=== PATIENT | female | born 1935 | race Caucasian/White ===

== ENCOUNTER 2016-06-21 08:07 | Day surgery (SDC) | payer MEDICARE ==
[2016-06-20 10:12] VITALS: BMI 25.7
[~2016-06-21 08:07] MED LIST: LACTATED RINGERS 1,000 ML IV SCH; LIDOCAINE 1% 20 ML VIAL (10MG/ML) FOR IV START INTRADERMA PRN
[2016-06-21 08:57] VITALS: TEMP 98.3
[2016-06-21] MEDS ORDERED: LACTATED RINGERS 1,000 ML IV ONE (08:57)
[2016-06-21] MEDS ORDERED: GLYCOPYRROLATE 0.2 MG/ML 2 ML VIAL ONE (09:31)
[2016-06-21] MEDS ORDERED: PROPOFOL 10 MG/ML 20 ML VIAL IV ONE (09:31)
[2016-06-21] MEDS ORDERED: LIDOCAINE 1% INJ 10MG/ML (20 ML MDV) ONE (09:31)
--- NOTE | 2016-06-21 09:53 | P.PCN ---
Date of Procedure: 06/21/16 Procedure(s) Performed: BRIEF HISTORY: Patient is a 81-year-old, pleasant, white female, scheduled for an upper endoscopy as a part of evaluation of persistent epigastric pain for the last few months duration. The pain is worse with eating and has occasional nausea vomiting. She has been on Prilosec 20 mg daily for 3 weeks with no help. She since can for an upper endoscopy to evaluate. PROCEDURE PERFORMED: Esophagogastroduodenoscopy with biopsy PREOPERATIVE DIAGNOSIS: Epigastric pain for the last 2 months duration. IV sedation per anesthesia. PROCEDURE: After informed consent was obtained, the patient was brought into the endoscopy unit. IV sedation was administered by Anesthesia under continuous monitoring. Initially the Olympus GIF-140 video endoscope was inserted into the mouth. Esophagus intubated without any difficulty. It was gradually advanced into the stomach and duodenum and carefully examined. The bulb and the second part of the duodenum appeared normal. The scope at this time was withdrawn to the stomach, adequately insufflated with air, and upon careful examination, mucosa of the antrum, had mild gastritis and biopsies were done from this area. The body, cardia and the fundus appeared normal. The scope was then withdrawn into the esophagus. Small hiatal hernia noted. The GE junction was located at 36 cm from the incisors. The esophagus appeared normal. There were no erosions or ulcerations seen and the patient tolerated the procedure well. IMPRESSION: 1. Small l hiatal hernia but no evidence of esophagitis or Thurman's esophagus. 2. Mild antral gastritis . RECOMMENDATIONS: The findings of this examination were discussed with the patient as well as her family. She was advised to follow with the biopsy results. The meantime she'll continue with Prilosec 20 mg daily and follow antireflux measures..
[2016-06-21 10:01] VITALS: BP 112/78; PULSE 90; RESP 16
== END 2016-06-21 10:44 | disposition home or self-care (01) ==
LOC: ORWHC2ENDO 08:07
PROVIDERS: ATTEND Internal Medicine Gastroenterology
DX: K29.50 Unspecified chronic gastritis without bleeding (principal); K44.9 Diaphragmatic hernia without obstruction or gangrene; I10 Essential (primary) hypertension; E07.9 Disorder of thyroid, unspecified; M79.7 Fibromyalgia; G62.9 Polyneuropathy, unspecified; Z79.891 Long term (current) use of opiate analgesic; Z79.899 Other long term (current) drug therapy; Z87.891 Personal history of nicotine dependence
CPT/HCPCS: 88305; 88342; 43239; J2001; J2704

== ENCOUNTER → 2018-04-03 | Outpatient (CLI) | payer MEDICARE ==
--- NOTE | 2018-04-03 15:29 | US ---
EXAMINATION TYPE: US venous doppler duplex LE LT DATE OF EXAM: 04/03/2018 3:14 PM COMPARISON: NONE CLINICAL HISTORY: M79.605 Pain In Limb. Intermittent left leg pain x 2 weeks SIDE PERFORMED: Left TECHNIQUE: The lower extremity deep venous system is examined utilizing real time linear array sonog elvis with graded compression, doppler sonography and color-flow sonography. VESSELS IMAGED: External Iliac Vein (EIV) Common Femoral Vein Deep Femoral Vein Greater Saphenous Vein * Femoral Vein Popliteal Vein Small Saphenous Vein * Proximal Calf Veins (* superficial vessels) Left Leg: Appears negative for DVT IMPRESSION: 1. Left lower extremity ultrasound negative for deep venous thrombosis.
== END ==
LOC: RADUSWWP 14:50
PROVIDERS: ATTEND Nurse Practitioner Family
DX: M79.605 Pain in left leg (principal)

== ENCOUNTER → 2018-04-29 | Outpatient (CLI) | payer MEDICARE ==
--- NOTE | 2018-04-30 10:24 | CT ---
EXAMINATION TYPE: CT knee RT wo con DATE OF EXAM: 04/30/2018 COMPARISON: Radiographs 05/05/2015 HISTORY: 83-year-old female right knee pain, right total knee replacement 2 years ago TECHNIQUE: Contiguous axial scanning of the right knee without IV contrast. Coronal and sagittal yazmin nstructions performed. 3-D reconstructions generated on a dedicated independent workstation. CT DLP: 248 mGycm Automated exposure control for dose reduction was used. FINDINGS: Extensive metal hardware artifact relating to the patient's right total knee arthroplasty. Review of coronal and sagittal reconstruction suggests solid contact at the metal bony and vertebral interface. No significant periprosthetic lucency. No obvious fracture seen. Assessment limited for heaton btle nondisplaced fracture due to the extensive artifacts. Extensor mechanism appears to be intact though there is a 5 x 2 mm osseous density along the proximal patellar tendon. There is a 6 x 3 mm loose body in the infrapatellar joint space. Preserved height of the polyethylene spacers. No sizable joint effusion seen. There are some prominent contact of the back surface of the distal quadriceps tendon with the anterio r aspect of the femoral component, for example, refer to coronal image 15 and axial image 21. This ma y be expected postsurgical appearance. No sizable Gates's cyst seen. IMPRESSION: 1. EXTENSIVE METAL HARDWARE ARTIFACT. NO EVIDENT PROSTHETIC LOOSENING OR PERIPROSTHETIC FRACTURE. 2. SOME FRAGMENTATION ALONG THE LOWER POLE OF THE PATELLA MEASURING 5 X 2 MM, PROBABLY CHRONIC POSTSU RGICAL SEQUELA OR A FRAGMENTED SPUR. CORRELATE WITH APPEARANCE ON OUTSIDE RADIOGRAPHS THE PRIOR RA DIOGRAPH IN THIS SYSTEM IS FROM 04/25/2015. 3. ALSO, 6 X 3 MM LOOSE BODY IN THE INFRAPATELLAR JOINT SPACE. 4. SOME PROMINENT CONTACT OF THE BACK SURFACE OF THE DISTAL QUADRICEPS TENDON WITH THE ANTERIOR ASPEC T OF THE FEMORAL COMPONENT WHICH MAY BE EXPECTED POSTSURGICAL APPEARANCE. CLINICALLY CORRELATE.
== END | disposition home or self-care (01) ==
LOC: RADCTMAIN 15:21
PROVIDERS: ATTEND Family Medicine
DX: M23.41 Loose body in knee, right knee (principal); Z96.651 Presence of right artificial knee joint

== ENCOUNTER → 2018-05-26 | Outpatient (CLI) | payer MEDICARE ==
[2018-05-26 11:51] VITALS: BP 143/91; PULSE 95; RESP 16
--- NOTE | 2018-05-26 12:20 | P.PAINCN ---
History of Present Illness - Reason for Consult Consult date: 05/26/18 - History of Present Illness This is a 83 years old female with a chronic history of right knee pain, patient had right total knee replacement done 2 years ago, patient reported that after the surgery she continued to have severe right knee pain, the pain in the right knee is localized, is not radiated to the right leg or to the right ankle, she describes her pain as aching and numbness, she is able to ambulate using a cane, she denies any fever or night sweats she denies any discharge from the right knee, she denies any swelling in the right knee, patient seen the orthopedic surgeon Dr. Abdi and he told her that all the hardware is intact , patient had computed tomography scan of the right knee done recently , and it did not show any abnormalities in the hardware. Past Medical History Past Medical History: Asthma, Fibromyalgia, Hypertension, Osteoarthritis (OA), Thyroid Disorder Additional Past Medical History / Comment(s): Neuropathy History of Any Multi-Drug Resistant Organisms: None Reported Past Surgical History: Appendectomy, Joint Replacement Additional Past Surgical History / Comment(s): RIGHT KNEE Past Anesthesia/Blood Transfusion Reactions: No Reported Reaction Past Psychological History: Depression Smoking Status: Former smoker Past Alcohol Use History: None Reported Additional Past Alcohol Use History / Comment(s): states "smoked many years ago" Past Drug Use History: None Reported - Past Family History Father Family Medical History: Cancer Medications and Allergies Home Medications Medication Instructions Recorded Confirmed Type Levothyroxine Sodium [Synthroid] 50 mcg PO DAILY 05/13/14 05/26/18 History Gabapentin [Neurontin] 400 mg PO BID 11/21/15 05/26/18 History Lisinopril 20 mg PO DAILY 11/21/15 05/26/18 History Melatonin 3 mg PO HS PRN #0 tablet 11/23/15 05/26/18 Rx Zolpidem [Ambien] 5 mg PO HS PRN 11/29/15 05/26/18 History HYDROcodone/APAP 7.5-325MG [[place] 1 tab PO BID 06/20/16 05/26/18 History 7.5-325] Metoprolol Tartrate 1 tab PO DAILY 05/26/18 05/26/18 History Allergies Allergy/AdvReac Type Severity Reaction Status Date / Time No Known Allergies Allergy Verified 05/26/18 11:43 Physical Exam Vitals: Vital Signs Pulse Resp BP Pulse Ox 05/26/18 11:46 95 16 143/91 98 Intake and Output 05/25/18 05/26/18 05/26/18 22:59 06:59 14:59 Other: Weight 53.977 kg Social history : not smoker , NO ETOH , NO Illegal drugs use . Review of Systems : - Constitutional : no chills , no fever , no night sweats , - Ears : no ear discharge , no change in hearing -Nose, Mouth ,Throat ; no bleeding gums, no sore throat , no epistaxis , -Cardiovascular : Denies chest pain, , no orthopnea , no palpitation -Respiratory : Denies cough , no dyspnea , no hemoptysis -Gastrointestinal :, no change in bowel habits , no coffee- ground emesis . -Genitourinary : No hematuria , no discharge , no incontinence, -Musculoskeletal : No gait dysfunction , report low back pain , - Neurological : no ataxia , no tremor , no sezure , -Psychatric , no suicidal ideation no hallucination - Endocrine : no cold intolerence , no polyuria , no polydypsia , -Hematologic : no easy bleeding , no easy brusing , -Allergic / immunology : no angioedema , no wheezing ,no allergic rhinitis -Integumentary : no brttle nails , no change hair / nails , no foot/leg ulcers . Physical Examinations : -Constitutional : Cooperative , not in acute distress . -HEENT : nech ; supple , no Lymphadenopathy , no Thyromegaly , :eyes , no icterus, no photophobia . ENT : , normal oropharynx , no Thrush - Respiratory : Chest clear to auscultations Bilaterally , no wheezing . - Cardiovascular : regular rate and rhythem , S1 , S2 , no S3 , no S4. - Gastrointestinal: abdomen soft no tenderness , no organomegally . - Genitourinary : Defferred . -Integumentary : No cellulitis , no ulcers , normal skin turgor , no cyanotic . - neurologic : Cranial nerve II to XII intact , no focal neurological deffecit -psychatric : alert , oriented X 3 , appropriate affect , intact judgment and insight . -Lymphatic : no Lymphadenopathy. - musculoskeltal: Ambulates using cane Positive allodynia in the medial aspect of the right knee, positive dysesthesia at the lateral aspect of the right knee There is No Discharge , no swelling , no erythema Flexion, extension of the right knee. 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 Patient also could benefit from changing the Neurontin dose to 300 mg every 8 hours ( currently 400 mg twice a day ) Time with Patient: Greater than 30 PQRS Measure Charge Sheet Measure #130: Documentation of Current Meds in Medical Chart: Patient's medications documented in chart Measure #226: Tobacco Use: Screen & Cessation Intervention: Pt not a tobacco user Measure #111: Pneumonia Vaccination: Pneumococcal vaccine administered or previously received Measure #47: Advance Care Plan: Advance care planning discussed & documented, pt chose/unable to give Measure #412: Opioid Treatment Agreement: No documentation of signed opioid treatment agreement Measure #408: Opioid Therapy Follow-up Evaluation: Patient had NO f/u eval minimum every 3 months during opioid therapy Measure #317: Preventitive Care & Scrn High Bld Press & F/U: Pre-hypertensive or hypertensive BP documented, pt will f/u with PCP Measure #128: Body Mass Index (BMI) Screening & Follow-up: BMI documented within normal parameters Measure #131: Pain Assessment & Follow-up: Pain positive & plan documented, Follow-up scheduled Measure #431: Unhealthy Alcohol Use Preventative Care & Scrn: Patient not identified as an unhealthy alcohol user PQRS Narrative: Smoking Status Former smoker Do You Want the Pneumonia No Vaccine AT THIS TIME? Blood Pressure 143/91 Pain Intensity [Right Knee] 10 Scale Used Numeric (1 - 10) Hx Alcohol Use (MH) Yes Home Medications: Ambulatory Orders Levothyroxine Sodium [Synthroid] 50 mcg PO DAILY 05/13/14 Gabapentin [Neurontin] 400 mg PO BID 11/21/15 Lisinopril 20 mg PO DAILY 11/21/15 Melatonin 3 mg PO HS PRN #0 tablet 11/23/15 Zolpidem [Ambien] 5 mg PO HS PRN 11/29/15 HYDROcodone/APAP 7.5-325MG [[place] 7.5-325] 1 tab PO BID 06/20/16 Metoprolol Tartrate 1 tab PO DAILY 05/26/18
== END ==
LOC: PNWHC3 11:31
PROVIDERS: ATTEND Specialist
DX: M25.561 Pain in right knee (principal); G58.8 Other specified mononeuropathies; I10 Essential (primary) hypertension; J45.909 Unspecified asthma, uncomplicated; F32.9 Major depressive disorder, single episode, unspecified; Z96.651 Presence of right artificial knee joint; Z79.899 Other long term (current) drug therapy; Z79.891 Long term (current) use of opiate analgesic; Z87.891 Personal history of nicotine dependence
CPT/HCPCS: 99211

== ENCOUNTER 2019-08-07 12:19 | Emergency (ER) | payer MEDICARE ==
[2019-08-07 12:28] VITALS: TEMP 98.1
--- NOTE | 2019-08-07 12:41 | ED ---
General Adult HPI - General Chief complaint: Weakness Stated complaint: weakness Time Seen by Provider: 08/07/19 12:20 Source: patient, donor services manager, RN notes reviewed, old records reviewed Mode of arrival: EMS Limitations: no limitations - History of Present Illness Initial comments: This is an 84-year-old female who presents emergency Department with generalized weakness. Patient also states she has some dysuria. Patient states on Friday she took some sleeping medication and then fell because she didn't get the bed quick enough. Patient states she did have some left lateral ankle pain at that time. Patient has been able to ambulate on it but it is more difficult. Patient denies any chest pain difficulty breathing shortness of breath per p atient denies any abdominal pain. Patient denies any nausea vomiting. Patient any diarrhea. Patient denies any headache patient denies any numbness or weakness. Patient denies any lightheadedness or dizziness. Patient states when she fell she did not hurt anything else but her ankle she denies any head trauma or neck pain. - Related Data Home Medications Medication Instructions Recorded Confirmed Levothyroxine Sodium [Synthroid] 50 mcg PO DAILY 05/13/14 08/07/19 Gabapentin [Neurontin] 400 mg PO TID 11/21/15 08/07/19 Lisinopril 20 mg PO DAILY 11/21/15 08/07/19 Zolpidem [Ambien] 5 mg PO HS PRN 11/29/15 08/07/19 HYDROcodone/APAP 7.5-325MG [[place] 1 tab PO BID 06/20/16 08/07/19 7.5-325] Metoprolol Succinate [Toprol XL] 25 mg PO DAILY 08/07/19 08/07/19 Omeprazole 20 mg PO DAILY 08/07/19 08/07/19 traZODone HCL [Desyrel] 50 mg PO HS PRN 08/07/19 08/07/19 Previous Rx's Medication Instructions Recorded Nitrofurantoin Monohyd/M-Cryst 100 mg PO Q12HR #14 cap 08/07/19 [Macrobid] Allergies Allergy/AdvReac Type Severity Reaction Status Date / Time No Known Allergies Allergy Verified 08/07/19 13:55 Review of Systems ROS Statement: Those systems with pertinent positive or pertinent negative responses have been documented in the HPI. ROS Other: All systems not noted in ROS Statement are negative. Past Medical History Past Medical History: Asthma, Fibromyalgia, Hypertension, Osteoarthritis (OA), Thyroid Disorder Additional Past Medical History / Comment(s): Neuropathy History of Any Multi-Drug Resistant Organisms: None Reported Past Surgical History: Appendectomy, Joint Replacement Additional Past Surgical History / Comment(s): RIGHT KNEE Past Anesthesia/Blood Transfusion Reactions: No Reported Reaction Past Psychological History: Depression Smoking Status: Former smoker Past Alcohol Use History: None Reported Past Drug Use History: None Reported - Past Family History Father Family Medical History: Cancer General Exam - General Exam Comments Initial Comments: GENERAL: Patient is well-developed and well-nourished. Patient is nontoxic and well- hydrated and is in mild distress. ENT: Neck is soft and supple. No significant lymphadenopathy is noted. Oropharynx is clear. Moist mucous membranes. Neck has full range of motion without eliciting any pain. EYES: The sclera were anicteric and conjunctiva were pink and moist. Extraocular movements were intact and pupils were equal round and reactive to light. Eyelids were unremarkable. PULMONARY: Unlabored respirations. Good breath sounds bilaterally. No audible rales rhonchi or wheezing was noted. CARDIOVASCULAR: There is a regular rate and rhythm without any murmurs gallops or rubs. ABDOMEN: Patient is slight tenderness diffusely around her abdomen. SKIN: Skin is clear with no lesions or rashes and otherwise unremarkable. NEUROLOGIC: Patient is alert and oriented x3. Cranial nerves II through XII are grossly intact. Motor and sensory are also intact. Normal speech, volume and content. Symmetrical smile. MUSCULOSKELETAL: Normal extremities with adequate strength and full range of motion. Patient has some bruising on the lateral aspect of the left foot and lateral malleolus area. This mildly tender to touch. LYMPHATICS: No significant lymphadenopathy is noted PSYCHIATRIC: Normal psychiatric evaluation. Limitations: no limitations Course Vital Signs 08/07/19 08/07/19 12:22 13:26 Temperature 98.1 F Pulse Rate 94 81 Respiratory 18 16 Rate Blood Pressure 154/94 159/86 O2 Sat by Pulse 98 98 Oximetry Medical Decision Making - Medical Decision Making EKG shows normal sinus rhythm at 86 bpm AL interval 132 QRS is 70 QT interval 356 QTC is 426. Patient's EKG shows no ST segment elevation or depression compared to an old EKG there are no acute changes. New. Patient received Rocephin emergency department and 1 L and a half of fluid. Patient also ate and drank emergency room without problem. Patient did not want to stay in the hospital and daughter was okay with taking her home and stated that she will live with her. - Lab Data Result diagrams: 08/07/19 12:27 08/07/19 12:27 Lab Results 08/07/19 08/07/19 08/07/19 Range/Units 12:27 12: 12:27 WBC 5.9 (3.8-10.6) k/uL RBC 4.06 (3.80-5.40) m/uL Hgb 12.7 (11.4-16.0) gm/dL Hct 39.8 (34.0-46.0) % MCV 98.1 (80.0-100.0) fL MCH 31.3 (25.0-35.0) pg MCHC 31.9 (31.0-37.0) g/dL RDW 13.9 (11.5-15.5) % Plt Count 307 (150-450) k/uL Neutrophils % 78 % Lymphocytes % 14 % Monocytes % 6 % Eosinophils % 1 % Basophils % 0 % Neutrophils # 4.6 (1.3-7.7) k/uL Lymphocytes # 0.8 L (1.0-4.8) k/uL Monocytes # 0.3 (0-1.0) k/uL Eosinophils # 0.0 (0-0.7) k/uL Basophils # 0.0 (0-0.2) k/uL Hypochromasia Slight PT 10.9 (9.0-12.0) sec INR 1.1 (<1.2) APTT 23.0 (22.0-30.0) sec Sodium 141 (137-145) mmol/L Potassium 4.3 (3.5-5.1) mmol/L Chloride 106 (98-107) mmol/L Carbon Dioxide 22 (22-30) mmol/L Anion Gap 13 mmol/L BUN 27 H (7-17) mg/dL Creatinine 0.71 (0.52-1.04) mg/dL Est GFR (CKD-EPI)AfAm >90 (>60 ml/min/1.73 sqM) Est GFR (CKD-EPI)NonAf 80 (>60 ml/min/1.73 sqM) Glucose 97 (74-99) mg/dL Plasma Lactic Acid John (0.7-2.0) mmol/L Calcium 9.1 (8.4-10.2) mg/dL Magnesium 2.0 (1.6-2.3) mg/dL Total Bilirubin 1.1 (0.2-1.3) mg/dL AST 41 H (14-36) U/L ALT 117 H (4-34) U/L Alkaline Phosphatase 127 H (38-126) U/L Troponin I (0.000-0.034) ng/mL Total Protein 6.8 (6.3-8.2) g/dL Albumin 4.1 (3.5-5.0) g/dL Urine Color Urine Appearance (Clear) Urine pH (5.0-8.0) Ur Specific [place] (1.001-1.035) Urine Protein (Negative) Urine Glucose (UA) (Negative) Urine Ketones (Negative) Urine Blood (Negative) Urine Nitrite (Negative) Urine Bilirubin (Negative) Urine Urobilinogen (<2.0) mg/dL Ur Leukocyte Esterase (Negative) Urine RBC (0-5) /hpf Urine WBC (0-5) /hpf Ur Squamous Epith Cells (0-4) /hpf Amorphous Sediment (None) /hpf Urine Bacteria (None) /hpf Hyaline Casts (0-2) /lpf Urine Mucus (None) /hpf 08/07/19 08/07/19 08/07/19 Range/Units 12:27 12:27 12:40 WBC (3.8-10.6) k/uL RBC (3.80-5.40) m/uL Hgb (11.4-16.0) gm/dL Hct (34.0-46.0) % MCV (80.0-100.0) fL MCH (25.0-35.0) pg MCHC (31.0-37.0) g/dL RDW (11.5-15.5) % Plt Count (150-450) k/uL Neutrophils % % Lymphocytes % % Monocytes % % Eosinophils % % Basophils % % Neutrophils # (1.3-7.7) k/uL Lymphocytes # (1.0-4.8) k/uL Monocytes # (0-1.0) k/uL Eosinophils # (0-0.7) k/uL Basophils # (0-0.2) k/uL Hypochromasia PT (9.0-12.0) sec INR (<1.2) APTT (22.0-30.0) sec Sodium (137-145) mmol/L Potassium (3.5-5.1) mmol/L Chloride (98-107) mmol/L Carbon Dioxide (22-30) mmol/L Anion Gap mmol/L BUN (7-17) mg/dL Creatinine (0.52-1.04) mg/dL Est GFR (CKD-EPI)AfAm (>60 ml/min/1.73 sqM) Est GFR (CKD-EPI)NonAf (>60 ml/min/1.73 sqM) Glucose (74-99) mg/dL Plasma Lactic Acid John 1.2 (0.7-2.0) mmol/L Calcium (8.4-10.2) mg/dL Magnesium (1.6-2.3) mg/dL Total Bilirubin (0.2-1.3) mg/dL AST (14-36) U/L ALT (4-34) U/L Alkaline Phosphatase (38-126) U/L Troponin I <0.012 (0.000-0.034) ng/mL Total Protein (6.3-8.2) g/dL Albumin (3.5-5.0) g/dL Urine Color Yellow Urine Appearance Cloudy H (Clear) Urine pH 8.0 (5.0-8.0) Ur Specific [place] 1.000 L (1.001-1.035) Urine Protein 2+ H (Negative) Urine Glucose (UA) Negative (Negative) Urine Ketones 2+ H (Negative) Urine Blood Negative (Negative) Urine Nitrite Negative (Negative) Urine Bilirubin Negative (Negative) Urine Urobilinogen <2.0 (<2.0) mg/dL Ur Leukocyte Esterase Negative (Negative) Urine RBC 30 H (0-5) /hpf Urine WBC 16 H (0-5) /hpf Ur Squamous Epith Cells <1 (0-4) /hpf Amorphous Sediment Occasional H (None) /hpf Urine Bacteria Few H (None) /hpf Hyaline Casts 1 (0-2) /lpf Urine Mucus Rare H (None) /hpf Disposition Clinical Impression: Urinary tract infection, Ankle sprain, Dehydration Disposition: HOME SELF-CARE Condition: Good Instructions (If sedation given, give patient instructions): Urinary Tract Infection in Women (ED) Prescriptions: Nitrofurantoin Monohyd/M-Cryst [Macrobid] 100 mg PO Q12HR #14 cap Is patient prescribed a controlled substance at d/c from ED?: No Referrals: Michell Florian III, MD [Primary Care Provider] - 1-2 days Time of Disposition: 15:03
[2019-08-07] MEDS ORDERED: SODIUM CHLORIDE 0.9% 1,000 ML IV ONE (12:53)
[2019-08-07 13:02] LABS: Amorphous Sediment,Urine Occasional /hpf; Bacteria,Urine Few /hpf; Hyaline Casts,Urine 1 /lpf (0-2); Mucus,Urine Rare /hpf; RBC,Urine 30 /hpf (0-5); Squamous Epithelial Cell,Urine <1 /hpf (0-4); WBC,Urine 16 /hpf (0-5)
[2019-08-07 13:07] LABS: ALT 117 U/L (4-34); AST 41 U/L (14-36); African American GFR (CKD) >90 (>60 ml/min/1.73 sqM); Albumin 4.1 g/dL (3.5-5.0); Alkaline Phosphatase 127 U/L (38-126); Anion Gap 13 mmol/L; Blood Urea Nitrogen 27 mg/dL (7-17); Calcium 9.1 mg/dL (8.4-10.2); Carbon Dioxide 22 mmol/L (22-30); Chloride 106 mmol/L (98-107); Glucose 97 mg/dL (74-99); Non-African American GFR(CKD) 80 (>60 ml/min/1.73 sqM); Potassium 4.3 mmol/L (3.5-5.1); Sodium 141 mmol/L (137-145); Total Bilirubin 1.1 mg/dL (0.2-1.3); Total Protein 6.8 g/dL (6.3-8.2)
[2019-08-07 13:11] LABS: Appearance,Urine Cloudy (Clear); Color,Urine Yellow
[2019-08-07 13:12] LABS: Bilirubin,Urine Negative (Negative); Blood,Urine Negative (Negative); Glucose,Urine (UA) Negative (Negative); Ketones,Urine 2+ (Negative); Leukocyte Esterase,Urine Negative (Negative); Nitrite,Urine Negative (Negative); Protein,Urine 2+ (Negative); Urobilinogen,Urine <2.0 mg/dL (<2.0)
[2019-08-07 13:13] LABS: INR 1.1 (<1.2); Prothrombin Time 10.9 sec (9.0-12.0)
--- NOTE | 2019-08-07 13:15 | XR ---
EXAMINATION TYPE: XR chest 2V DATE OF EXAM: 08/07/2019 HISTORY: Weakness. REFERENCE: Previous study dated 11/24/2015. FINDINGS: Lung volumes are mildly prominent. The lungs are clear. Pleural spaces are clear. The heart is not enlarged. IMPRESSION: PLEASE CORRELATE FOR COPD.
--- NOTE | 2019-08-07 13:17 | XR ---
EXAMINATION TYPE: XR ankle complete LT , 3 VIEWS DATE OF EXAM ORDERED: 08/07/2019 HISTORY: Fall . COMPARISON: None. FINDINGS: The bones are osteopenic likely on the basis of osteoporosis. There is extensive calcifica tion of the Achilles tendon. No fracture or dislocation is seen. IMPRESSION: 1. NO ACUTE OSSEOUS LESION. 2. CALCIFICATION OF THE ACHILLES TENDON WHICH DOES NOT EXTEND TO THE CALCANEUS. I COULD NOT EXCLUDE A N ACHILLES RUPTURE.
--- NOTE | 2019-08-07 13:18 | XR ---
EXAMINATION TYPE: XR foot complete LT , 3 VIEWS DATE OF EXAM ORDERED: 08/07/2019 HISTORY: Fall . COMPARISON: None. FINDINGS: There are hammertoe deformities of all 5 digits. Calcification of the Achilles tendon is again noted. This does not extend of the calcaneus raising th e possibility of Achilles rupture. There are degenerative changes in the first tarsometatarsal joint as well as in the first MTP joint. No acute fracture is seen. IMPRESSION: 1. NO ACUTE OSSEOUS LESION. 2. I SUSPECT AN ACHILLES TENDON RUPTURE. 3. HAMMERTOE DEFORMITIES. 4. DEGENERATIVE CHANGE.
[2019-08-07 13:33] LABS: Basophils % (A) 0 %; Eosinophils % (A) 1 %; HCT 39.8 % (34.0-46.0); HGB 12.7 gm/dL (11.4-16.0); Hypochromasia Slight; Lymphocytes # (A) 0.8 k/uL (1.0-4.8); Lymphocytes % (A) 14 %; MCH 31.3 pg (25.0-35.0); MCHC 31.9 g/dL (31.0-37.0); MCV 98.1 fL (80.0-100.0); Mean Platelet Volume 7.3; Monocytes # (A) 0.3 k/uL (0-1.0); Monocytes % (A) 6 %; Neutrophils # (A) 4.6 k/uL (1.3-7.7); Neutrophils % (A) 78 %; Platelet Count 307 k/uL (150-450); RBC 4.06 m/uL (3.80-5.40); RDW 13.9 % (11.5-15.5); WBC 5.9 k/uL (3.8-10.6)
[2019-08-07] MEDS ORDERED: cefTRIAXone IN SWFI 1,000 MG/10 ML SYRINGE IVP STA (13:35)
[2019-08-07] MEDS ORDERED: HYDROcodone/APAP 5-325MG 1 EACH TAB PO STA (14:19)
[2019-08-07 15:30] VITALS: BP 143/85; PULSE 92; RESP 18
== END 2019-08-07 15:20 | disposition home or self-care (01) ==
LOC: EC 12:19
DX: N39.0 Urinary tract infection, site not specified (principal); E86.0 Dehydration; S93.402A Sprain of unspecified ligament of left ankle, initial encounter; I10 Essential (primary) hypertension; E07.9 Disorder of thyroid, unspecified; M19.90 Unspecified osteoarthritis, unspecified site; F32.9 Major depressive disorder, single episode, unspecified; Z79.890 Hormone replacement therapy; Z79.891 Long term (current) use of opiate analgesic; Z79.899 Other long term (current) drug therapy; Z96.651 Presence of right artificial knee joint; Z87.891 Personal history of nicotine dependence; W18.39XA Other fall on same level, initial encounter
CPT/HCPCS: 36415; 93005; 80053; 83605; 83735; 84484; 85025; 85610; 85730; 81001; 87086; 73610; 73630; 71046; 99285; 96374; 96361; J0696

== ENCOUNTER 2020-10-01 22:40 | Emergency (ER) | payer MEDICARE ==
[2020-10-01 22:51] VITALS: TEMP 98.9
--- NOTE | 2020-10-01 23:08 | ED ---
Fall HPI - General Chief Complaint: Fall Stated Complaint: Fall Time Seen by Provider: 10/01/20 22:47 Source: EMS Mode of arrival: EMS - History of Present Illness Initial Comments: This patient is an 85-year-old woman who presents to be a value for knee pain after she had a fall. She states that she had gotten dizzy while she was trying to walk and then fell. The patient states that she did not have any other injuries. No loss of consciousness. No head or neck pain. 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, recurrent falls Fall Witnessed: no Place Fall Occurred: home Loss of Consciousness: none Prolonged Down Time?: no Location - Extremities: Left: Knee Severity: mild Context: tripped/slipped Associated Symptoms: denies - Related Data Home Medications Medication Instructions Recorded Confirmed Levothyroxine Sodium [Synthroid] 50 mcg PO DAILY 05/13/14 10/01/20 Zolpidem [Ambien] 5 mg PO HS 11/29/15 10/01/20 HYDROcodone/APAP 7.5-325MG [[place] 1 tab PO BID 06/20/16 10/01/20 7.5-325] Ergocalciferol [Vitamin D2 (1250 1,250 mcg PO MO 10/01/20 10/01/20 Mcg = 28024 Iu)] Gabapentin 600 mg PO TID 10/01/20 10/01/20 Loratadine [Claritin] 10 mg PO DAILY 10/01/20 10/01/20 Pantoprazole Sodium [Protonix] 40 mg PO BID 10/01/20 10/01/20 lisinopriL [Zestril] 20 mg PO DAILY 10/01/20 10/01/20 Allergies Allergy/AdvReac Type Severity Reaction Status Date / Time No Known Allergies Allergy Verified 10/01/20 23:44 Review of Systems ROS Statement: Those systems with pertinent positive or pertinent negative responses have been documented in the HPI. ROS Other: All systems not noted in ROS Statement are negative. Constitutional: Reports: weakness (Generalized). Denies: fever, chills Respiratory: Denies: cough, dyspnea Cardiovascular: Denies: chest pain, palpitations, edema, syncope Gastrointestinal: Denies: abdominal pain, vomiting, diarrhea Genitourinary: Denies: dysuria, frequency, hematuria Musculoskeletal: Reports: as per HPI, arthralgia. Denies: back pain Skin: Denies: rash Neurological: Denies: headache, weakness, numbness, paresthesias Past Medical History Past Medical History: Asthma, Fibromyalgia, Hypertension, Osteoarthritis (OA), Thyroid Disorder Additional Past Medical History / Comment(s): Neuropathy History of Any Multi-Drug Resistant Organisms: None Reported Past Surgical History: Appendectomy, Joint Replacement Additional Past Surgical History / Comment(s): RIGHT KNEE Past Anesthesia/Blood Transfusion Reactions: No Reported Reaction Past Psychological History: Depression Smoking Status: Former smoker Past Alcohol Use History: None Reported Past Drug Use History: None Reported - Past Family History Father Family Medical History: Cancer General Exam Limitations: no limitations General appearance: alert, in no apparent distress Head exam: Present: atraumatic, normocephalic Eye exam: Present: normal appearance. Absent: scleral icterus, conjunctival injection Neck exam: Present: normal inspection, full ROM. Absent: tenderness, meningismus Respiratory exam: Present: normal lung sounds bilaterally. Absent: respiratory distress, wheezes, rales, rhonchi, stridor, chest wall tenderness Cardiovascular Exam: Present: regular rate, normal rhythm, normal heart sounds. Absent: systolic murmur, diastolic murmur, rubs, gallop GI/Abdominal exam: Present: soft. Absent: distended, tenderness, guarding, rebound, rigid Extremities exam: Present: normal inspection, tenderness (Anterior aspect left knee as well as just distal), normal capillary refill. Absent: pedal edema, j oint swelling, calf tenderness Back exam: Present: normal inspection. Absent: CVA tenderness (R), CVA tenderness (L), vertebral tenderness Neurological exam: Present: alert. Absent: motor sensory deficit Skin exam: Present: warm, dry, intact, normal color. Absent: rash Course Vital Signs 10/01/20 10/02/20 10/02/20 22:43 00:23 02:00 Temperature 98.9 F Pulse Rate 83 75 77 Respiratory 16 16 16 Rate Blood Pressure 135/67 117/70 103/61 O2 Sat by Pulse 98 98 Oximetry 10/02/20 10/02/20 04:00 05:46 Temperature 98.9 F Pulse Rate 70 74 Respiratory 16 18 Rate Blood Pressure 143/78 138/72 O2 Sat by Pulse 96 96 Oximetry Medical Decision Making - Lab Data Result diagrams: 10/01/20 23:19 10/01/20 23:19 Lab Results 10/01/20 10/01/20 10/01/20 Range/Units 23:19 23:19 23:19 WBC 9.5 (3.8-10.6) k/uL RBC 4.01 (3.80-5.40) m/uL Hgb 12.7 (11.4-16.0) gm/dL Hct 39.4 (34.0-46.0) % MCV 98.4 (80.0-100.0) fL MCH 31.8 (25.0-35.0) pg MCHC 32.3 (31.0-37.0) g/dL RDW 14.3 (11.5-15.5) % Plt Count 247 (150-450) k/uL MPV 6.8 Neutrophils % 92 % Lymphocytes % 2 % Monocytes % 4 % Eosinophils % 1 % Basophils % 0 % Neutrophils # 8.8 H (1.3-7.7) k/uL Lymphocytes # 0.2 L (1.0-4.8) k/uL Monocytes # 0.4 (0-1.0) k/uL Eosinophils # 0.1 (0-0.7) k/uL Basophils # 0.0 (0-0.2) k/uL Sodium 134 L (137-145) mmol/L Potassium 4.1 (3.5-5.1) mmol/L Chloride 100 (98-107) mmol/L Carbon Dioxide 25 (22-30) mmol/L Anion Gap 9 mmol/L BUN 20 H (7-17) mg/dL Creatinine 0.83 (0.52-1.04) mg/dL Est GFR (CKD-EPI)AfAm 76 (>60 ml/min/1.73 sqM) Est GFR (CKD-EPI)NonAf 66 (>60 ml/min/1.73 sqM) Glucose 128 H (74-99) mg/dL Calcium 8.9 (8.4-10.2) mg/dL Troponin I <0.012 (0.000-0.034) ng/mL - EKG Data -: EKG Interpreted by [facility] EKG shows normal: sinus rhythm, axis (Normal), intervals (Normal), QRS complexes (Normal), ST-T waves (Normal) Rate: normal (Rate 80 bpm) Disposition Clinical Impression: Fall, Knee pain, right Disposition: HOME SELF-CARE Condition: Good Instructions (If sedation given, give patient instructions): Knee Pain (ED) Is patient prescribed a controlled substance at d/c from ED?: No Referrals: Michell Florian III, MD [Primary Care Provider] - 1-2 days
[2020-10-01] MEDS ORDERED: HYDROcodone/APAP 5-325MG 1 EACH TAB PO STA (23:17)
[2020-10-01 23:39] LABS: Basophils % (A) 0 %; Eosinophils # (A) 0.1 k/uL (0-0.7); Eosinophils % (A) 1 %; HCT 39.4 % (34.0-46.0); HGB 12.7 gm/dL (11.4-16.0); Lymphocytes # (A) 0.2 k/uL (1.0-4.8); Lymphocytes % (A) 2 %; MCH 31.8 pg (25.0-35.0); MCHC 32.3 g/dL (31.0-37.0); MCV 98.4 fL (80.0-100.0); Mean Platelet Volume 6.8; Monocytes # (A) 0.4 k/uL (0-1.0); Monocytes % (A) 4 %; Neutrophils # (A) 8.8 k/uL (1.3-7.7); Neutrophils % (A) 92 %; Platelet Count 247 k/uL (150-450); RBC 4.01 m/uL (3.80-5.40); RDW 14.3 % (11.5-15.5); WBC 9.5 k/uL (3.8-10.6)
[2020-10-01 23:57] LABS: Calcium 8.9 mg/dL (8.4-10.2); Potassium 4.1 mmol/L (3.5-5.1)
--- NOTE | 2020-10-02 00:07 | XR ---
EXAMINATION TYPE: XR tibia fibula RT DATE OF EXAM: 10/01/2020 COMPARISON: NONE HISTORY: Fall. Pain. TECHNIQUE: 2 views FINDINGS: I see no fracture nor dislocation. Joint spaces are normal. There is a right knee prosthesi s. Components appear in good position. IMPRESSION: No fracture seen.
--- NOTE | 2020-10-02 00:08 | XR ---
EXAMINATION TYPE: XR femur RT DATE OF EXAM: 10/01/2020 COMPARISON: NONE HISTORY: Fall. Pain. TECHNIQUE: 4 views FINDINGS: Hip joint is intact. There is right knee prosthesis. Components appear in good position. Th ere is no evidence of a fracture. IMPRESSION: Negative right femur exam.
[2020-10-02] MEDS ORDERED: PANTOPRAZOLE 40 MG TABLET PO STA (04:21)
[2020-10-02 05:57] VITALS: BP 138/72; PULSE 74; RESP 18
== END 2020-10-02 05:46 | disposition home or self-care (01) ==
LOC: EC 22:40
DX: M25.561 Pain in right knee (principal); I10 Essential (primary) hypertension; J45.909 Unspecified asthma, uncomplicated; M19.90 Unspecified osteoarthritis, unspecified site; E07.9 Disorder of thyroid, unspecified; F32.9 Major depressive disorder, single episode, unspecified; Z87.891 Personal history of nicotine dependence; Z90.49 Acquired absence of other specified parts of digestive tract
CPT/HCPCS: 36415; 80048; 84484; 85025; 93005; 99284

== ENCOUNTER → 2021-04-04 | Outpatient (CLI) | payer MEDICARE ==
[2021-04-04 16:32] LABS: Basophils % (A) 0 %; Eosinophils # (A) 0.1 k/uL (0-0.7); Eosinophils % (A) 1 %; HCT 43.8 % (34.0-46.0); HGB 13.7 gm/dL (11.4-16.0); Hypochromasia Slight; Lymphocytes # (A) 0.9 k/uL (1.0-4.8); Lymphocytes % (A) 15 %; MCHC 31.2 g/dL (31.0-37.0); MCV 102.8 fL (80.0-100.0); Macrocytosis Slight; Mean Platelet Volume 6.6; Monocytes # (A) 0.3 k/uL (0-1.0); Monocytes % (A) 4 %; Neutrophils # (A) 4.7 k/uL (1.3-7.7); Neutrophils % (A) 77 %; Platelet Count 356 k/uL (150-450); RBC 4.27 m/uL (3.80-5.40); RDW 15.3 % (11.5-15.5)
[2021-04-04 16:40] LABS: ALT 83 U/L (4-34); AST 79 U/L (14-36); African American GFR (CKD) 81 (>60 ml/min/1.73 sqM); Albumin 3.8 g/dL (3.5-5.0); Albumin/Globulin Ratio 1.3; Alkaline Phosphatase 1002 U/L (38-126); Amylase 51 U/L (30-110); Anion Gap 9 mmol/L; Blood Urea Nitrogen 19 mg/dL (7-17); Calcium 9.1 mg/dL (8.4-10.2); Carbon Dioxide 26 mmol/L (22-30); Chloride 99 mmol/L (98-107); Glucose 112 mg/dL (74-99); Lipase 126 U/L (23-300); Non-African American GFR(CKD) 70 (>60 ml/min/1.73 sqM); Potassium 4.5 mmol/L (3.5-5.1); Sodium 134 mmol/L (137-145); Total Bilirubin 2.1 mg/dL (0.2-1.3); Total Protein 6.8 g/dL (6.3-8.2)
--- NOTE | 2021-04-04 18:55 | CT ---
EXAMINATION TYPE: CT abdomen pelvis w con DATE OF EXAM: 04/04/2021 COMPARISON: None HISTORY: abdominal pain and distention, weight loss CT DLP: 306.1 mGycm Automated exposure control for dose reduction was used. CONTRAST: Performed with IV Contrast, patient injected with 100 mL of Isovue 300. There is large hiatal hernia. Heart size is normal. Spleen is intact. There is dilation of the intra and extrahepatic bile ducts. Common bile duct measures 18 mm. There is large gallbladder with gallsto raymond. Gallbladder measures 4.5 cm in diameter. There are gallstones at the gallbladder neck. There is possible large gallstone in the distal common bile duct. This measures 1.6 cm. There is no evidence of pancreatic mass. Pancreatic duct is not dilated to any extent. There is no ad renal mass. Kidneys show satisfactory contrast opacification. Delayed images show normal renal excret ion. Urinary bladder is almost empty. There is a very large cystic septated mass in the abdomen and pelvis which measures 19 x 18 x 13 cm. This could be markedly dilated urinary bladder with diverticula. 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 There is no ascites. There is displacement of the bowel out of the pelvis. There is no eviden ce of a bowel obstruction. There is no mesenteric edema. There is no evidence of free air. There is a first-degree L4-5 spondylolisthesis. There is multilevel degenerative disc space narrowing in the lumbar spine. There is no compression fracture. Bony pelvis is intact. The hip joints are int act. IMPRESSION: Large septated cystic pelvic mass. Post void ultrasound exam of the pelvis would be helpful to determ ine if this is large urinary bladder with large bladder diverticula and appear increased compared to the old CT scan. There is dilated biliary tree. Cholelithiasis. Possible large stone in the distal common bile duct. M MEDIA CONSULTANT exam would be helpful for further evaluation if clinically indicated. Follow up recommended.
== END | disposition home or self-care (01) ==
LOC: RADCTMAIN 15:41
PROVIDERS: ATTEND Family Medicine
DX: N32.3 Diverticulum of bladder (principal); K80.20 Calculus of gallbladder without cholecystitis without obstruction; K83.8 Other specified diseases of biliary tract
CPT/HCPCS: 80053; 82150; 83690; 85025; 74177; 36415; Q9967

== ENCOUNTER 2021-04-06 10:05 | Emergency (ER) | payer MEDICARE ==
--- NOTE | 2021-04-06 10:18 | ED ---
General Adult HPI - General Chief complaint: Abdominal Pain Stated complaint: Gallbladder issues, sent by Time Seen by Provider: 04/06/21 10:24 Source: patient, family (daughter), RN notes reviewed, old records reviewed Mode of arrival: ambulatory Limitations: no limitations - History of Present Illness Initial comments: 85-year-old cachectic female presents with her daughter, alert and oriented 4, with complaints of 20 pound weight loss in one month, right upper abdominal pain after eating and abdominal distention. Patient had an outpatient CT scan and labs ordered by her primary care doctor and was sent to the emergency room for evaluation. She denies any fevers, vomiting or diarrhea. She does state that the pain is worse after eating and her urine has been very dark in color. -: month(s) (1) Location: abdomen Radiation: non-radiation Severity scale (1-10): 9 Quality: constant Consistency: constant Worsens with: eating Associated Symptoms: other (weight loss) Treatments Prior to Arrival: none - Related Data Home Medications Medication Instructions Recorded Confirmed Levothyroxine Sodium [Synthroid] 50 mcg PO DAILY 05/13/14 10/01/20 Zolpidem [Ambien] 5 mg PO HS 11/29/15 10/01/20 HYDROcodone/APAP 7.5-325MG [[place] 1 tab PO BID 06/20/16 10/01/20 7.5-325] Ergocalciferol [Vitamin D2 (1250 1,250 mcg PO MO 10/01/20 10/01/20 Mcg = 92226 Iu)] Gabapentin 600 mg PO TID 10/01/20 10/01/20 Loratadine [Claritin] 10 mg PO DAILY 10/01/20 10/01/20 Pantoprazole Sodium [Protonix] 40 mg PO BID 10/01/20 10/01/20 lisinopriL [Zestril] 20 mg PO DAILY 10/01/20 10/01/20 Allergies Allergy/AdvReac Type Severity Reaction Status Date / Time No Known Allergies Allergy Verified 04/06/21 10:09 Review of Systems ROS Statement: Those systems with pertinent positive or pertinent negative responses have been documented in the HPI. ROS Other: All systems not noted in ROS Statement are negative. Past Medical History Past Medical History: Asthma, Fibromyalgia, Hypertension, Osteoarthritis (OA), Thyroid Disorder Additional Past Medical History / Comment(s): Neuropathy History of Any Multi-Drug Resistant Organisms: None Reported Past Surgical History: Appendectomy, Joint Replacement Additional Past Surgical History / Comment(s): RIGHT KNEE Past Anesthesia/Blood Transfusion Reactions: No Reported Reaction Past Psychological History: Depression Smoking Status: Former smoker Past Alcohol Use History: None Reported Past Drug Use History: None Reported - Past Family History Father Family Medical History: Cancer General Exam Limitations: no limitations General appearance: alert, in no apparent distress Head exam: Present: atraumatic, normocephalic, normal inspection Eye exam: Present: scleral icterus. Absent: conjunctival injection, periorbital swelling, periorbital tenderness ENT exam: Present: normal exam, normal oropharynx, mucous membranes moist Neck exam: Present: normal inspection, full ROM. Absent: tenderness, meningismus, lymphadenopathy Respiratory exam: Present: normal lung sounds bilaterally. Absent: respiratory distress, wheezes, rales, rhonchi, stridor, chest wall tenderness, accessory muscle use, decreased breath sounds, prolonged expiratory Cardiovascular Exam: Present: regular rate GI/Abdominal exam: Present: soft, distended, tenderness, mass Extremities exam: Present: normal inspection, full ROM, normal capillary refill. Absent: tenderness, pedal edema Back exam: Present: normal inspection, full ROM. Absent: tenderness, CVA tenderness (R), CVA tenderness (L), rash noted Neurological exam: Present: alert, oriented X3 Psychiatric exam: Present: normal affect, normal mood Skin exam: Present: warm, dry, intact, normal color. Absent: cyanosis, diaphoretic, petechiae, pallor Course Vital Signs 04/06/21 04/06/21 10:06 12:53 Temperature 97.1 F L 97.6 F Pulse Rate 77 78 Respiratory 20 18 Rate Blood Pressure 183/92 181/103 O2 Sat by Pulse 97 97 Oximetry Medical Decision Making - Medical Decision Making 85-year-old cachectic female presents with complaints of 20 pound weight loss in one month, right upper abdominal pain after eating and abdominal distention. Outpatient CT scan and labs ordered by her PCP on 04/04/20. CT the abdomen and pelvis with contrast completed on 04/04/2021 shows a large septated cystic pelvic mass. This mass measures 19 x 18 x 13 cm. Polycystic ovarian tumor is not excluded. There is a dilated biliary tree with cholelithiasis. Gallstone measuring 1.6 cm, common bile duct at 18 mm. Labs drawn on April 04 show a total bili of 2.1, alk phos 1002 within AST of 79 ALT of 83. She has been afebrile and vital signs are stable. She will be transferred [facility] accepted by Dr. Pacheco ER to ER transfer for choledocholithiasis and need of an ERCP. 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 Case discussed with Dr. Sheppard - Lab Data Result diagrams: 04/06/21 10:38 04/06/21 10:38 Lab Results 04/06/21 04/06/21 04/06/21 Range/Units 10:38 10:38 10:38 WBC 5.0 (3.8-10.6) k/uL RBC 4.06 (3.80-5.40) m/uL Hgb 13.5 (11.4-16.0) gm/dL Hct 41.8 (34.0-46.0) % MCV 103.1 H (80.0-100.0) fL MCH 33.4 (25.0-35.0) pg MCHC 32.4 (31.0-37.0) g/dL RDW 15.0 (11.5-15.5) % Plt Count 289 (150-450) k/uL MPV 6.8 Neutrophils % 76 % Lymphocytes % 16 % Monocytes % 5 % Eosinophils % 2 % Basophils % 1 % Neutrophils # 3.8 (1.3-7.7) k/uL Lymphocytes # 0.8 L (1.0-4.8) k/uL Monocytes # 0.2 (0-1.0) k/uL Eosinophils # 0.1 (0-0.7) k/uL Basophils # 0.1 (0-0.2) k/uL Hypochromasia Slight Macrocytosis Slight PT 11.1 (9.0-12.0) sec INR 1.0 (<1.2) APTT 25.8 (22.0-30.0) sec Sodium 137 (137-145) mmol/L Potassium 3.9 (3.5-5.1) mmol/L Chloride 103 (98-107) mmol/L Carbon Dioxide 28 (22-30) mmol/L Anion Gap 6 mmol/L BUN 22 H (7-17) mg/dL Creatinine 0.69 (0.52-1.04) mg/dL Est GFR (CKD-EPI)AfAm >90 (>60 ml/min/1.73 sqM) Est GFR (CKD-EPI)NonAf 81 (>60 ml/min/1.73 sqM) Glucose 92 (74-99) mg/dL Plasma Lactic Acid John (0.7-2.0) mmol/L Calcium 9.1 (8.4-10.2) mg/dL Total Bilirubin 1.8 H (0.2-1.3) mg/dL AST 73 H (14-36) U/L ALT 82 H (4-34) U/L Alkaline Phosphatase 929 H (38-126) U/L Total Protein 6.5 (6.3-8.2) g/dL Albumin 3.7 (3.5-5.0) g/dL Amylase 74 (30-110) U/L Lipase 128 (23-300) U/L Coronavirus (PCR) (Not Detectd) 04/06/21 04/06/21 Range/Units 10:38 12:23 WBC (3.8-10.6) k/uL RBC (3.80-5.40) m/uL Hgb (11.4-16.0) gm/dL Hct (34.0-46.0) % MCV (80.0-100.0) fL MCH (25.0-35.0) pg MCHC (31.0-37.0) g/dL RDW (11.5-15.5) % Plt Count (150-450) k/uL MPV Neutrophils % % Lymphocytes % % Monocytes % % Eosinophils % % Basophils % % Neutrophils # (1.3-7.7) k/uL Lymphocytes # (1.0-4.8) k/uL Monocytes # (0-1.0) k/uL Eosinophils # (0-0.7) k/uL Basophils # (0-0.2) k/uL Hypochromasia Macrocytosis PT (9.0-12.0) sec INR (<1.2) APTT (22.0-30.0) sec Sodium (137-145) mmol/L Potassium (3.5-5.1) mmol/L Chloride (98-107) mmol/L Carbon Dioxide (22-30) mmol/L Anion Gap mmol/L BUN (7-17) mg/dL Creatinine (0.52-1.04) mg/dL Est GFR (CKD-EPI)AfAm (>60 ml/min/1.73 sqM) Est GFR (CKD-EPI)NonAf (>60 ml/min/1.73 sqM) Glucose (74-99) mg/dL Plasma Lactic Acid John 1.2 (0.7-2.0) mmol/L Calcium (8.4-10.2) mg/dL Total Bilirubin (0.2-1.3) mg/dL AST (14-36) U/L ALT (4-34) U/L Alkaline Phosphatase (38-126) U/L Total Protein (6.3-8.2) g/dL Albumin (3.5-5.0) g/dL Amylase (30-110) U/L Lipase (23-300) U/L Coronavirus (PCR) Not Detected (Not Detectd) Disposition Clinical Impression: Cholelithiasis, Ovarian mass, Choledocholithiasis Disposition: OTHER INSTITUTION NOT DEFINED Condition: Good Referrals: Michell Florian III, MD [Primary Care Provider] - 1-2 days - Out of Hospital Transfer - Req. Specs Out of Hospital Transfer - Requested Specifics: Other Emergency Center ([facility])
[2021-04-06] MEDS ORDERED: SODIUM CHLORIDE 0.9% 500 ML 500 ML IV STA (10:28)
[2021-04-06] MEDS ORDERED: HYDROcodone/APAP 7.5-325MG 1 EACH TAB PO ONE (10:28)
[2021-04-06 11:02] LABS: Basophils # (A) 0.1 k/uL (0-0.2); Basophils % (A) 1 %; Eosinophils # (A) 0.1 k/uL (0-0.7); Eosinophils % (A) 2 %; HCT 41.8 % (34.0-46.0); HGB 13.5 gm/dL (11.4-16.0); Hypochromasia Slight; Lymphocytes # (A) 0.8 k/uL (1.0-4.8); Lymphocytes % (A) 16 %; MCH 33.4 pg (25.0-35.0); MCHC 32.4 g/dL (31.0-37.0); MCV 103.1 fL (80.0-100.0); Macrocytosis Slight; Mean Platelet Volume 6.8; Monocytes # (A) 0.2 k/uL (0-1.0); Monocytes % (A) 5 %; Neutrophils # (A) 3.8 k/uL (1.3-7.7); Neutrophils % (A) 76 %; Platelet Count 289 k/uL (150-450); RBC 4.06 m/uL (3.80-5.40)
[2021-04-06 11:09] LABS: ALT 82 U/L (4-34); AST 73 U/L (14-36); African American GFR (CKD) >90 (>60 ml/min/1.73 sqM); Albumin 3.7 g/dL (3.5-5.0); Alkaline Phosphatase 929 U/L (38-126); Amylase 74 U/L (30-110); Anion Gap 6 mmol/L; Blood Urea Nitrogen 22 mg/dL (7-17); Calcium 9.1 mg/dL (8.4-10.2); Carbon Dioxide 28 mmol/L (22-30); Chloride 103 mmol/L (98-107); Glucose 92 mg/dL (74-99); Lipase 128 U/L (23-300); Non-African American GFR(CKD) 81 (>60 ml/min/1.73 sqM); Potassium 3.9 mmol/L (3.5-5.1); Sodium 137 mmol/L (137-145); Total Bilirubin 1.8 mg/dL (0.2-1.3); Total Protein 6.5 g/dL (6.3-8.2)
[2021-04-06 11:18] LABS: Partial Thromboplastin Time 25.8 sec (22.0-30.0); Prothrombin Time 11.1 sec (9.0-12.0)
[2021-04-06 13:00] VITALS: BP 181/103; PULSE 78; RESP 18; TEMP 97.6
== END 2021-04-06 13:00 | disposition other institution (70) ==
LOC: EC 10:05
DX: K80.20 Calculus of gallbladder without cholecystitis without obstruction (principal); N83.9 Noninflammatory disorder of ovary, fallopian tube and broad ligament, unspecified; K80.50 Calculus of bile duct without cholangitis or cholecystitis without obstruction; J45.909 Unspecified asthma, uncomplicated; I10 Essential (primary) hypertension; M19.90 Unspecified osteoarthritis, unspecified site; F32.A Depression, unspecified; Z87.891 Personal history of nicotine dependence
CPT/HCPCS: 80053; 82150; 83605; 83690; 85025; 85610; 85730; 87635; 99284

== ENCOUNTER 2021-07-13 16:28 | Emergency (ER) | payer MEDICARE ==
[2021-07-13 18:10] VITALS: PULSE 78; TEMP 98.8
[2021-07-13] MEDS ORDERED: HYDROcodone/APAP 5-325MG 1 EACH TAB PO STA (21:08)
[2021-07-13] MEDS ORDERED: PIPERACILLIN-TAZOBACTAM 3.375 GM in SODIUM CHLORIDE 0.9% 100 ML IVPB STA (21:26)
[2021-07-13] MEDS ORDERED: SODIUM CHLORIDE 0.9% 1,000 ML IV SCH (21:30)
--- NOTE | 2021-07-13 22:04 | ED ---
General Adult HPI - General Chief complaint: Abdominal Pain Stated complaint: Here 07/13 Sent by for admit Time Seen by Provider: 07/13/21 20:58 Source: patient, RN notes reviewed, old records reviewed Mode of arrival: ambulatory Limitations: no limitations - History of Present Illness Initial comments: 86-year-old female presenting for evaluation of abnormal CT. Patient stating that in March she had procedure performed at outside hospital, uncertain exactly what this procedure was bit ultimately resulted in laparoscopic abdominal surgery. She was transferred to [facility] and recovered well. She went for outpatient CT which had been ordered by [employer] oncology for evaluation of a cystic abdominal mass which is been present for some time. CT revealed air- fluid levels concerning for infectious process within this previously known cystic mass. Patient does report fever and chills. She denies abdominal pain. - Related Data Home Medications Medication Instructions Recorded Confirmed Levothyroxine Sodium [Synthroid] 50 mcg PO DAILY 05/13/14 10/01/20 Zolpidem [Ambien] 5 mg PO HS 11/29/15 10/01/20 HYDROcodone/APAP 7.5-325MG [[place] 1 tab PO BID 06/20/16 10/01/20 7.5-325] Ergocalciferol [Vitamin D2 (1250 1,250 mcg PO MO 10/01/20 10/01/20 Mcg = 22006 Iu)] Gabapentin 600 mg PO TID 10/01/20 10/01/20 Loratadine [Claritin] 10 mg PO DAILY 10/01/20 10/01/20 Pantoprazole Sodium [Protonix] 40 mg PO BID 10/01/20 10/01/20 lisinopriL [Zestril] 20 mg PO DAILY 10/01/20 10/01/20 Allergies Allergy/AdvReac Type Severity Reaction Status Date / Time No Known Allergies Allergy Verified 07/13/21 18:10 Review of Systems ROS Statement: Those systems with pertinent positive or pertinent negative responses have been documented in the HPI. ROS Other: All systems not noted in ROS Statement are negative. Past Medical History Past Medical History: Asthma, Fibromyalgia, Hypertension, Osteoarthritis (OA), Thyroid Disorder Additional Past Medical History / Comment(s): Neuropathy History of Any Multi-Drug Resistant Organisms: None Reported Past Surgical History: Appendectomy, Joint Replacement Additional Past Surgical History / Comment(s): RIGHT KNEE Past Anesthesia/Blood Transfusion Reactions: No Reported Reaction Past Psychological History: Depression Smoking Status: Former smoker Past Alcohol Use History: None Reported Past Drug Use History: None Reported - Past Family History Father Family Medical History: Cancer General Exam Limitations: no limitations General appearance: alert, in no apparent distress Head exam: Present: atraumatic, normocephalic Eye exam: Present: normal appearance, PERRL ENT exam: Present: normal exam Neck exam: Present: normal inspection. Absent: tenderness, meningismus Respiratory exam: Present: normal lung sounds bilaterally. Absent: respiratory distress, wheezes Cardiovascular Exam: Present: regular rate, normal rhythm GI/Abdominal exam: Present: distended. Absent: tenderness, guarding, rebound Extremities exam: Present: normal inspection, normal capillary refill Neurological exam: Present: alert, oriented X3, CN II-XII intact. Absent: motor sensory deficit Psychiatric exam: Present: normal affect, normal mood Skin exam: Present: warm, dry, intact. Absent: cyanosis, diaphoretic Course Vital Signs 07/13/21 18:07 Temperature 98.8 F Pulse Rate 78 Respiratory 18 Rate Blood Pressure 159/92 O2 Sat by Pulse 98 Oximetry Medical Decision Making - Medical Decision Making 86-year-old female with abnormal outpatient CT. I had a long discussion with the physician who had ordered CT Dr. Rios, regarding this abnormal finding. I also discussed case with urology Dr. Luna at this institution with regards to the possibility of this being related to the urinary system. At this time felt to not connect with the ureters. Ultimately was requested that the patient be transfer to [place] given the complexity of this suspected infected abdominal mass. Dr. mistry, and blood cultures are obtained. The patient is started on IV antibiotics. She will be transferred to [facility] for further evaluation treatment. Case discussed with Dr. Morejon who will accept transfer. - Lab Data Result diagrams: 07/13/21 21:20 Lab Results 07/13/21 Range/Units 21:20 WBC 5.6 (3.8-10.6) k/uL RBC 3.96 (3.80-5.40) m/uL Hgb 11.2 L (11.4-16.0) gm/dL Hct 37.6 (34.0-46.0) % MCV 94.9 (80.0-100.0) fL MCH 28.3 (25.0-35.0) pg MCHC 29.8 L (31.0-37.0) g/dL RDW 14.6 (11.5-15.5) % Plt Count 294 (150-450) k/uL MPV 6.9 Neutrophils % 65 % Lymphocytes % 23 % Monocytes % 6 % Eosinophils % 5 % Basophils % 0 % Neutrophils # 3.6 (1.3-7.7) k/uL Lymphocytes # 1.3 (1.0-4.8) k/uL Monocytes # 0.3 (0-1.0) k/uL Eosinophils # 0.3 (0-0.7) k/uL Basophils # 0.0 (0-0.2) k/uL Hypochromasia Moderate Disposition Clinical Impression: Abdominal mass, Intra-abdominal infection Disposition: OTHER INSTITUTION NOT DEFINED Condition: Stable Is patient prescribed a controlled substance at d/c from ED?: No Referrals: Michell Florian III, MD [Primary Care Provider] - 1-2 days Time of Disposition: 22:05 - Out of Hospital Transfer - Req. Specs Out of Hospital Transfer - Requested Specifics: Other Emergency Center ([facility])
[2021-07-13 22:13] LABS: Basophils % (A) 0 %; Eosinophils # (A) 0.3 k/uL (0-0.7); Eosinophils % (A) 5 %; HCT 37.6 % (34.0-46.0); HGB 11.2 gm/dL (11.4-16.0); Hypochromasia Moderate; Lymphocytes # (A) 1.3 k/uL (1.0-4.8); Lymphocytes % (A) 23 %; MCH 28.3 pg (25.0-35.0); MCHC 29.8 g/dL (31.0-37.0); MCV 94.9 fL (80.0-100.0); Mean Platelet Volume 6.9; Monocytes # (A) 0.3 k/uL (0-1.0); Monocytes % (A) 6 %; Neutrophils # (A) 3.6 k/uL (1.3-7.7); Neutrophils % (A) 65 %; Platelet Count 294 k/uL (150-450); RBC 3.96 m/uL (3.80-5.40); RDW 14.6 % (11.5-15.5); WBC 5.6 k/uL (3.8-10.6)
[2021-07-13 22:58] VITALS: BP 151/62; RESP 16
[2021-07-14] MEDS ORDERED: PIPERACILLIN-TAZOBACTAM 3.375 GM in SODIUM CHLORIDE 0.9% 100 ML IVPB SCH (06:00)
== END 2021-07-13 22:45 | disposition other institution (70) ==
LOC: EC 16:28
DX: R19.00 Intra-abdominal and pelvic swelling, mass and lump, unspecified site (principal); I10 Essential (primary) hypertension; J45.909 Unspecified asthma, uncomplicated; M19.90 Unspecified osteoarthritis, unspecified site; M79.7 Fibromyalgia; Z87.891 Personal history of nicotine dependence; Z90.49 Acquired absence of other specified parts of digestive tract; E07.9 Disorder of thyroid, unspecified; Z79.899 Other long term (current) drug therapy; Z79.890 Hormone replacement therapy
CPT/HCPCS: 36415; 85025; 87040; 99284; 96374; J2543

== ENCOUNTER → 2021-07-13 | Outpatient (CLI) | payer MEDICARE ==
[2021-07-13 11:37] LABS: African American GFR (CKD) >90 (>60 ml/min/1.73 sqM); Blood Urea Nitrogen 19 mg/dL (7-17); Non-African American GFR(CKD) 86 (>60 ml/min/1.73 sqM)
--- NOTE | 2021-07-13 12:58 | CT ---
EXAMINATION TYPE: CT ChestAbdPelvis w con DATE OF EXAM: 07/13/2021 COMPARISON: CT abdomen and pelvis April 04, 2021 HISTORY: abd and pelvic pain, swelling, surgery to remove GB in Feb with complications causing anothe r surgery CT DLP: 399.5 mGycm. Automated Exposure Control for Dose Reduction was Utilized. CONTRAST: CT scan of the thorax, abdomen and pelvis is performed with IV Contrast, patient injected with 75 mL of Isovue 300. FINDINGS: LUNGS: Mild underlying emphysematous change. Lungs are grossly clear. No pleural effusion or pneumoth orax seen bilaterally MEDIASTINUM: There are no greater than 1 cm hilar or mediastinal lymph nodes. No cardiomegaly or pe ricardial effusion is seen. 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 Improved biliary dilatati on is seen. New pneumobilia consistent with patent stent is present also. Internal soft tissue masses within the gallbladder lumen are redemonstrated. PANCREAS: No significant abnormality is seen. SPLEEN: No significant abnormality is seen. ADRENALS: No significant abnormality is seen. KIDNEYS: Persistent symmetric cortical medullary uptake and excretion with moderate right and mild le ft-sided hydronephrosis. There is a large thin-walled cyst or cystic lesion occupying a significant p ortion of the lower abdomen and anterior pelvis that has new air-fluid levels. Delayed phase imaging shows fluid density to become more hyperdense consistent with a significant connection to the bladder . Nondependent foci of air are noted suggesting nonsimple fluid or possible debris. There is a persis tent large left lower abdominal component with air-fluid level on current study. BOWEL: Large size hiatal hernia or intrathoracic stomach redemonstrated. Oral contrast reaches level of the mid transverse colon. Patient has little intra-abdominal fat. No suspicious small or large bow el dilatation. Diverticula in the sigmoid colon are redemonstrated. GENITAL ORGANS: Anteverted uterus is thought present. LYMPH NODES: No greater than 1cm abdominal or pelvic lymph nodes are appreciated. OSSEOUS STRUCTURES: Grade 1 anterolisthesis L4 on L5. OTHER: No significant additional abnormality is seen. IMPRESSION: 1. Improved biliary dilatation after internal biliary drainage catheter placement. 2. Persistent large thin-walled cyst or cystic mass in the left pelvis and large thin-walled cyst or mass in the anterior pelvis. There are new air-fluid levels with nondependent foci of air. Delayed im ages show excretion into this structure. I suspect a large distended bladder with fistula communicati on. I suspect large left cystic pelvic ovarian mass or neoplasm communicating with bladder. Nondepend ent foci of air suspicious for infection or possible stool products and additional GI source of fistu la cannot be excluded. Clinical correlation and further workup is advised.
== END | disposition home or self-care (01) ==
LOC: RADCTMAIN 10:36
PROVIDERS: ATTEND Obstetrics & Gynecology
DX: Z46.82 Encounter for fitting and adjustment of non-vascular catheter (principal)
CPT/HCPCS: 82565; 84520; 71260; 74177; Q9967

== ENCOUNTER 2022-12-05 13:29 | Inpatient (IN) | payer MEDICARE ==
[2022-12-05 14:33] LABS: Basophils % (A) 0 %; Eosinophils # (A) 0.1 k/uL (0-0.7); Eosinophils % (A) 3 %; HCT 41.7 % (34.0-46.0); HGB 13.8 gm/dL (11.4-16.0); Lymphocytes # (A) 0.7 k/uL (1.0-4.8); Lymphocytes % (A) 16 %; MCH 32.1 pg (25.0-35.0); MCHC 33.1 g/dL (31.0-37.0); Mean Platelet Volume 7.3; Monocytes # (A) 0.2 k/uL (0-1.0); Monocytes % (A) 5 %; Neutrophils # (A) 3.5 k/uL (1.3-7.7); Neutrophils % (A) 76 %; Platelet Count 192 k/uL (150-450); RBC 4.29 m/uL (3.80-5.40); RDW 14.7 % (11.5-15.5); WBC 4.6 k/uL (3.8-10.6)
[2022-12-05 15:06] LABS: INR 1.2 (<1.2); Partial Thromboplastin Time 26.1 sec (22.0-30.0); Prothrombin Time 12.8 sec (10.0-12.5)
--- NOTE | 2022-12-05 15:13 | ED ---
General Adult HPI - General Chief complaint: Recheck/Abnormal Lab/Rx Stated complaint: Weakness Time Seen by Provider: 12/05/22 13:41 Source: patient, EMS Mode of arrival: EMS Limitations: no limitations - History of Present Illness Initial comments: 87-year-old female presenting to the ED with a chief complaint of fatigue. Patient states for the past week has had complaints of fatigue and myalgias. Additionally notes some urinary frequency and intermittent dysuria. Also notes some difficulties swallowing as well. No pain with swallowing however states unable to swallow solids foods. Today, reports no worsening of symptoms however notes symptoms still ongoing therefore prompting presentation to the ED for further evaluation. Denies chest pain or shortness of breath. No nausea or vomiting. No changes in bowel or bladder habits. No other complaints. - Related Data Home Medications Medication Instructions Recorded Confirmed Levothyroxine Sodium [Synthroid] 50 mcg PO DAILY 05/13/14 12/05/22 HYDROcodone/APAP 7.5-325MG [[place] 1 tab PO TID 06/20/16 12/05/22 7.5-325] Gabapentin 600 mg PO TID 10/01/20 12/05/22 Pantoprazole Sodium [Protonix] 40 mg PO BID 10/01/20 12/05/22 lisinopriL [Zestril] 20 mg PO DAILY 10/01/20 12/05/22 Metoprolol Succinate (ER) [Toprol 25 mg PO DAILY 12/05/22 12/05/22 Xl] Allergies Allergy/AdvReac Type Severity Reaction Status Date / Time No Known Allergies Allergy Verified 12/05/22 14:20 Review of Systems ROS Statement: Those systems with pertinent positive or pertinent negative responses have been documented in the HPI. ROS Other: All systems not noted in ROS Statement are negative. Past Medical History Past Medical History: Asthma, Fibromyalgia, Hypertension, Osteoarthritis (OA), Thyroid Disorder Additional Past Medical History / Comment(s): Neuropathy History of Any Multi-Drug Resistant Organisms: None Reported Past Surgical History: Appendectomy, Joint Replacement Additional Past Surgical History / Comment(s): RIGHT KNEE Past Anesthesia/Blood Transfusion Reactions: No Reported Reaction Past Psychological History: Depression Smoking Status: Former smoker Past Alcohol Use History: None Reported Past Drug Use History: None Reported - Past Family History Father Family Medical History: Cancer General Exam Limitations: no limitations General appearance: alert, in no apparent distress ENT exam: Present: mucous membranes moist Respiratory exam: Present: normal lung sounds bilaterally Cardiovascular Exam: Present: regular rate, normal rhythm GI/Abdominal exam: Present: soft (Suprapubic tenderness to palpation. No rebound guarding or rigidity.) Neurological exam: Present: alert, oriented X3 Skin exam: Present: warm, dry Course Vital Signs 12/05/22 12/05/22 13:38 17:35 Temperature 97.4 F L Pulse Rate 63 64 Respiratory 18 18 Rate Blood Pressure 150/79 156/96 O2 Sat by Pulse 99 100 Oximetry Medical Decision Making - Medical Decision Making Was pt. sent in by a medical professional or institution (, PA, [employer] C[employer]TER, urgent care, hospital, or shelter...) When possible be specific @ -No Did you speak to anyone other than the patient for history (EMS, parent, family, police, friend...)? What history was obtained from this source @ -No Did you review nursing and triage notes (agree or disagree)? Why? @ -I reviewed and agree with nursing and triage notes Were old charts reviewed (outside hosp., previous admission, EMS record, old EKG, old radiological studies, urgent care reports/EKG's, shelter records)? Report findings @ -No old charts were reviewed Differential Diagnosis (chest pain, altered mental status, abdominal pain women, abdominal pain men, vaginal bleeding, weakness, fever, dyspnea, syncope, headache, dizziness, GI bleed, back pain, seizure, CVA, palpatations, mental health, musculoskeletal)? @ -Differential Abdominal Pain Women: Appendicitis, Cholecystitis, diverticulosis, ischemic bowel, pancreatitis, hepatitis, UTI, gastroenteritis, AAA, incarcerated hernia, bowel obstruction, constipation, inflammatory bowel, hepatitis, peptic ulcer disease, splenic infa rction, perforated viscus, vulvitis, ovarian torsion, PID, kidney stone, placenta abruption, this is not meant to be an all-inclusive list EKG interpreted by me (3pts min.). @ -As above X-rays interpreted by me (1pt min.). @ -None done CT interpreted by me (1pt min.). @ -CT abdomen and pelvis interpreted by me. CT abdomen and pelvis with contrast shows thin walled cystic mass in the pelvis consistent with urinary bladder with multiple diverticula. Additional finding of air in the urinary bladder compatible with emphysematous cystitis. U/S interpreted by me (1pt. min.). @ -None done What testing was considered but not performed or refused? (CT, X-rays, U/S, labs)? Why? @ -None What meds were considered but not given or refused? Why? @ -None Did you discuss the management of the patient with other professionals (professionals i.e. Dr., PA, GLOVE CUTTER, lab, RT, psych nurse, sr. social media & mobile manager, certified peer specialist, teacher, photographic intelligence officer, family caseworker)? Give summary @ -Spoke to Dr. Tinsley who accepts admission and is in agreement with plan of care. Was smoking cessation discussed for >3mins.? @ -No Was critical care preformed (if so, how long)? @ -No Were there social determinants of health that impacted care today? How? (Homelessness, low income, unemployed, alcoholism, drug addiction, transportation, low edu. Level, literacy, decrease access to med. care, [facility], rehab)? @ -No Was there de-escalation of care discussed even if they declined (Discuss DNR or withdrawal of care, Hospice)? DNR status @ -No What co-morbidities impacted this encounter? (DM, HTN, Smoking, COPD, CAD, Cancer, CVA, ARF, Chemo, Hep., AIDS, mental health diagnosis, sleep apnea, morbid obesity)? @ -None Was patient admitted / discharged? Hospital course, mention meds given and route, prescriptions, significant lab abnormalities, going to OR and other pe rtinent info. @ -Admission 87-year-old female presenting to the ED with complaints of generalized weakness, myalgias, frequency, and dysuria for the past 2 weeks. Laboratory studies reviewed. CBC largely unremarkable. Chemistry panel also largely unremarkable however urinalysis does show evidence of infection with large leukocyte esterase, >182 white blood cells with moderate white blood cell clumps and many bacteria. She was started on IV antibiotics here in the ED. Patient will be admitted with consults to urology and infectious disease. Discussed plan of care with patient and family who are in agreement. Undiagnosed new problem with uncertain prognosis? @ -No Drug Therapy requiring intensive monitoring for toxicity (Heparin, Nitro, Insulin, Cardizem)? @ -No Were any procedures done? @ -No Diagnosis/symptom? @ -Emphysematous cystitis Acute, or Chronic, or Acute on Chronic? @ -Acute Uncomplicated (without systemic symptoms) or Complicated (systemic symptoms)? @ -Uncomplicated Side effects of treatment? @ -No Exacerbation, Progression, or Severe Exacerbation? @ -No Poses a threat to life or bodily function? How? (Chest pain, [place], [place], pneumonia, PE, COPD, DKA, ARF, appy, cholecystitis, CVA, Diverticulitis, Homicidal, Suicidal, threat to staff... and all critical care pts) @ -No - Lab Data Result diagrams: 12/05/22 14:20 12/05/22 14:20 Lab Results 12/05/22 12/05/22 12/05/22 Range/Units 14:20 14:20 14:20 WBC 4.6 (3.8-10.6) k/uL RBC 4.29 (3.80-5.40) m/uL Hgb 13.8 (11.4-16.0) gm/dL Hct 41.7 (34.0-46.0) % MCV 97.0 (80.0-100.0) fL MCH 32.1 (25.0-35.0) pg MCHC 33.1 (31.0-37.0) g/dL RDW 14.7 (11.5-15.5) % Plt Count 192 (150-450) k/uL MPV 7.3 Neutrophils % 76 % Lymphocytes % 16 % Monocytes % 5 % Eosinophils % 3 % Basophils % 0 % Neutrophils # 3.5 (1.3-7.7) k/uL Lymphocytes # 0.7 L (1.0-4.8) k/uL Monocytes # 0.2 (0-1.0) k/uL Eosinophils # 0.1 (0-0.7) k/uL Basophils # 0.0 (0-0.2) k/uL PT 12.8 H (10.0-12.5) sec INR 1.2 H (<1.2) APTT 26.1 (22.0-30.0) sec Sodium 136 L (137-145) mmol/L Potassium 3.6 (3.5-5.1) mmol/L Chloride 105 (98-107) mmol/L Carbon Dioxide 23 (22-30) mmol/L Anion Gap 8 mmol/L BUN 26 H (7-17) mg/dL Creatinine 0.58 (0.52-1.04) mg/dL Est GFR (CKD-EPI)AfAm >90 (>60 ml/min/1.73 sqM) Est GFR (CKD-EPI)NonAf 85 (>60 ml/min/1.73 sqM) Glucose 97 (74-99) mg/dL Plasma Lactic Acid John (0.7-2.0) mmol/L Calcium 8.1 L (8.4-10.2) mg/dL Total Bilirubin 0.9 (0.2-1.3) mg/dL AST 23 (14-36) U/L ALT 12 (4-34) U/L Alkaline Phosphatase 55 (38-126) U/L Troponin I (0.000-0.034) ng/mL Total Protein 5.4 L (6.3-8.2) g/dL Albumin 3.1 L (3.5-5.0) g/dL Amylase 32 (30-110) U/L Lipase 191 (23-300) U/L Urine Color Urine Appearance (Clear) Urine pH (5.0-8.0) Ur Specific [place] (1.001-1.035) Urine Protein (Negative) Urine Glucose (UA) (Negative) Urine Ketones (Negative) Urine Blood (Negative) Urine Nitrite (Negative) Urine Bilirubin (Negative) Urine Urobilinogen (<2.0) mg/dL Ur Leukocyte Esterase (Negative) Urine RBC (0-5) /hpf Urine WBC (0-5) /hpf Urine WBC Clumps (None) /hpf Ur Squamous Epith Cells (0-4) /hpf Urine Bacteria (None) /hpf Urine Mucus (None) /hpf Influenza Type A (PCR) (Not Detectd) Influenza Type B (PCR) (Not Detectd) RSV (PCR) (Not Detectd) SARS-CoV-2 (PCR) (Not Detectd) 12/05/22 12/05/22 12/05/22 Range/Units 14:20 14:20 15:26 WBC (3.8-10.6) k/uL RBC (3.80-5.40) m/uL Hgb (11.4-16.0) gm/dL Hct (34.0-46.0) % MCV (80.0-100.0) fL MCH (25.0-35.0) pg MCHC (31.0-37.0) g/dL RDW (11.5-15.5) % Plt Count (150-450) k/uL MPV Neutrophils % % Lymphocytes % % Monocytes % % Eosinophils % % Basophils % % Neutrophils # (1.3-7.7) k/uL Lymphocytes # (1.0-4.8) k/uL Monocytes # (0-1.0) k/uL Eosinophils # (0-0.7) k/uL Basophils # (0-0.2) k/uL PT (10.0-12.5) sec INR (<1.2) APTT (22.0-30.0) sec Sodium (137-145) mmol/L Potassium (3.5-5.1) mmol/L Chloride (98-107) mmol/L Carbon Dioxide (22-30) mmol/L Anion Gap mmol/L BUN (7-17) mg/dL Creatinine (0.52-1.04) mg/dL Est GFR (CKD-EPI)AfAm (>60 ml/min/1.73 sqM) Est GFR (CKD-EPI)NonAf (>60 ml/min/1.73 sqM) Glucose (74-99) mg/dL Plasma Lactic Acid John 1.7 (0.7-2.0) mmol/L Calcium (8.4-10.2) mg/dL Total Bilirubin (0.2-1.3) mg/dL AST (14-36) U/L ALT (4-34) U/L Alkaline Phosphatase (38-126) U/L Troponin I 0.030 (0.000-0.034) ng/mL Total Protein (6.3-8.2) g/dL Albumin (3.5-5.0) g/dL Amylase (30-110) U/L Lipase (23-300) U/L Urine Color Urine Appearance (Clear) Urine pH (5.0-8.0) Ur Specific [place] (1.001-1.035) Urine Protein (Negative) Urine Glucose (UA) (Negative) Urine Ketones (Negative) Urine Blood (Negative) Urine Nitrite (Negative) Urine Bilirubin (Negative) Urine Urobilinogen (<2.0) mg/dL Ur Leukocyte Esterase (Negative) Urine RBC (0-5) /hpf Urine WBC (0-5) /hpf Urine WBC Clumps (None) /hpf Ur Squamous Epith Cells (0-4) /hpf Urine Bacteria (None) /hpf Urine Mucus (None) /hpf Influenza Type A (PCR) Not Detected (Not Detectd) Influenza Type B (PCR) Not Detected (Not Detectd) RSV (PCR) Not Detected (Not Detectd) SARS-CoV-2 (PCR) Not Detected (Not Detectd) 12/05/22 Range/Units 18:19 WBC (3.8-10.6) k/uL RBC (3.80-5.40) m/uL Hgb (11.4-16.0) gm/dL Hct (34.0-46.0) % MCV (80.0-100.0) fL MCH (25.0-35.0) pg MCHC (31.0-37.0) g/dL RDW (11.5-15.5) % Plt Count (150-450) k/uL MPV Neutrophils % % Lymphocytes % % Monocytes % % Eosinophils % % Basophils % % Neutrophils # (1.3-7.7) k/uL Lymphocytes # (1.0-4.8) k/uL Monocytes # (0-1.0) k/uL Eosinophils # (0-0.7) k/uL Basophils # (0-0.2) k/uL PT (10.0-12.5) sec INR (<1.2) APTT (22.0-30.0) sec Sodium (137-145) mmol/L Potassium (3.5-5.1) mmol/L Chloride (98-107) mmol/L Carbon Dioxide (22-30) mmol/L Anion Gap mmol/L BUN (7-17) mg/dL Creatinine (0.52-1.04) mg/dL Est GFR (CKD-EPI)AfAm (>60 ml/min/1.73 sqM) Est GFR (CKD-EPI)NonAf (>60 ml/min/1.73 sqM) Glucose (74-99) mg/dL Plasma Lactic Acid John (0.7-2.0) mmol/L Calcium (8.4-10.2) mg/dL Total Bilirubin (0.2-1.3) mg/dL AST (14-36) U/L ALT (4-34) U/L Alkaline Phosphatase (38-126) U/L Troponin I (0.000-0.034) ng/mL Total Protein (6.3-8.2) g/dL Albumin (3.5-5.0) g/dL Amylase (30-110) U/L Lipase (23-300) U/L Urine Color Yellow Urine Appearance Turbid H (Clear) Urine pH 5.5 (5.0-8.0) Ur Specific [place] 1.045 H (1.001-1.035) Urine Protein 1+ H (Negative) Urine Glucose (UA) Negative (Negative) Urine Ketones Negative (Negative) Urine Blood Small H (Negative) Urine Nitrite Negative (Negative) Urine Bilirubin Negative (Negative) Urine Urobilinogen <2.0 (<2.0) mg/dL Ur Leukocyte Esterase Large H (Negative) Urine RBC 50 H (0-5) /hpf Urine WBC >182 H (0-5) /hpf Urine WBC Clumps Moderate H (None) /hpf Ur Squamous Epith Cells 7 H (0-4) /hpf Urine Bacteria Many H (None) /hpf Urine Mucus Many H (None) /hpf Influenza Type A (PCR) (Not Detectd) Influenza Type B (PCR) (Not Detectd) RSV (PCR) (Not Detectd) SARS-CoV-2 (PCR) (Not Detectd) - EKG Data EKG Comments: EKG shows a sinus rhythm at 60 bpm with nonspecific changes. ID [id number], QRS 75, QT/QTC 402/402. Disposition Clinical Impression: Emphysematous cystitis Disposition: ADMITTED IP TO THIS HOSP Condition: Good Referrals: Jayy Tinsley MD [Primary Care Provider] - 1-2 days Time of Disposition: 18:56
[2022-12-05 15:15] LABS: ALT 12 U/L (4-34); AST 23 U/L (14-36); African American GFR (CKD) >90 (>60 ml/min/1.73 sqM); Albumin 3.1 g/dL (3.5-5.0); Alkaline Phosphatase 55 U/L (38-126); Amylase 32 U/L (30-110); Anion Gap 8 mmol/L; Blood Urea Nitrogen 26 mg/dL (7-17); Calcium 8.1 mg/dL (8.4-10.2); Carbon Dioxide 23 mmol/L (22-30); Chloride 105 mmol/L (98-107); Glucose 97 mg/dL (74-99); Lipase 191 U/L (23-300); Non-African American GFR(CKD) 85 (>60 ml/min/1.73 sqM); Potassium 3.6 mmol/L (3.5-5.1); Sodium 136 mmol/L (137-145); Total Bilirubin 0.9 mg/dL (0.2-1.3); Total Protein 5.4 g/dL (6.3-8.2)
[2022-12-05] MEDS ORDERED: HYDROcodone/APAP 7.5-325MG 1 EACH TAB PO ONE (15:16)
[2022-12-05] MEDS ORDERED: GABAPENTIN 300 MG CAP PO STA (15:16)
--- NOTE | 2022-12-05 15:37 | CT ---
EXAMINATION TYPE: CT abdomen pelvis wo con DATE OF EXAM: 12/05/2022 COMPARISON: 07/13/2021 HISTORY: abd pain hx appendectomy CT DLP: 233.9 mGycm Examination of the solid and hollow viscera is limited given the lack of contrast. FINDINGS: LUNG BASES: No evidence for nodule. No evidence for infiltrate. Large fixed hiatal hernia. LIVER/GB: Cholelithiasis. Biliary catheter noted to be in place. No space-occupying hepatic lesion. PANCREAS: No pancreatic mass identified. No inflammatory process seen. SPLEEN: No evidence for splenomegaly. No intrasplenic lesions seen. ADRENALS: No adrenal nodules identified. No evidence for thickening. KIDNEYS: No evidence for renal mass. No nephrolithiasis. No hydronephrosis. As noted previously there is a persistent large thin-walled cyst or cystic mass within the pelvis which is difficult to measur e and may contain septations. There is air in the wall of this cystic mass which was previously thoug ht to reflect urinary bladder with fistulous communication. Air within the wall of this structure sug gests emphysematous cystitis. Air is seen tracking into the inguinal regions as well. Cystic masses o f other etiology including the ovaries are difficult to exclude. BOWEL: No evidence of bowel obstruction. No inflammatory process. Sigmoid diverticulosis without dive rticulitis. Limited visualization of the appendix. Lymph nodes: No evidence for adenopathy greater than 1 cm. Abdominal aorta: Atheromatous changes seen. No evidence for aneurysm. Genital organs: No significant abnormality. Other: No significant abnormality. IMPRESSION: 1.As noted previously there is a persistent large thin-walled cyst or cystic mass within the pelvis w hich is difficult to measure and may contain septations. There is air in the wall of this cystic mass which was previously thought to reflect urinary bladder with fistulous communication. Air within the wall of this structure suggests emphysematous cystitis. 2. Large fixed hiatal hernia. 3. Cholelithiasis.
--- NOTE | 2022-12-05 16:12 | CT ---
EXAMINATION TYPE: CT soft tissue neck w con DATE OF EXAM: 12/05/2022 COMPARISON: None HISTORY: Dysphagia CT DLP: Combined DLP of 600.5 mGycm CONTRAST: CT scan of the neck is performed with IV Contrast, patient injected with 100 ml mL of Isovue 370. Contrast enhanced CT of the neck was performed from the skull base through the lung apices. AIRWAY: The supraglottic, glottic, and subglottic portions of the airway appear patent and free of mass. SALIVARY GLANDS: The submandibular and parotid glands are free of mass or inflammatory process. THYROID GLAND: No nodules or masses seen. LYMPH NODES: No adenopathy seen greater than 1cm. LUNG APICES: No nodule or mass is seen. OTHER: Vascular structures are patent. No significant degenerative change of the cervical spine. N o abscess seen. IMPRESSION: No discrete abnormality seen.
--- NOTE | 2022-12-05 16:27 | CT ---
EXAMINATION TYPE: CT abdomen pelvis w con DATE OF EXAM: 12/05/2022 COMPARISON: Same day unenhanced study HISTORY: Abnormalities seen on prior w/o study performed earlier today. CT DLP: Combined DLP of 600.5 mGycm CONTRAST: CT scan of the abdomen and pelvis is performed without Oral Contrast and with IV Contrast, patient in jected with 100 ml mL of Isovue 370. FINDINGS: LUNG BASES-: No visible nodule. No infiltrate. Large fixed hiatal hernia. LIVER/GB: Cholelithiasis. Biliary catheter noted to be in place. No space- occupying hepatic lesion . PANCREAS: No inflammation. No distinct mass. SPLEEN: No splenic enlargement. No lesion seen. ADRENALS: No nodule. No thickening. KIDNEYS/BLADDER: Delayed images are obtained through the urinary bladder which demonstrate a large th in-walled cystic mass felt to reflect the urinary bladder with multiple large diverticula seen. There is air within the wall of the urinary bladder compatible with emphysematous cystitis. The previous s tudy suggested fistulous communication between the sigmoid colon and urinary bladder. BOWEL: Limited visualization of the appendix. Extensive diverticular change throughout the sigmoid co orion no active inflammatory process seen. No obstructive change present. GENITAL ORGANS: No gross abnormality. LYMPH NODES: No greater than 1cm abdominal or pelvic lymph nodes are appreciated. AORTA: No significant abnormality. OSSEOUS STRUCTURES: No significant abnormality is seen. OTHER: No significant additional abnormality is seen. IMPRESSION: 1. Contrast is noted within the large thin-walled cystic mass within the pelvis confirming that this structure reflects the urinary bladder with multiple diverticula. Air within the wall of the urinary bladder is compatible with emphysematous cystitis. 2. The remainder of the examination is unchanged from earlier in the day.
[2022-12-05 18:39] LABS: Appearance,Urine Turbid (Clear); Bacteria,Urine Many /hpf; Bilirubin,Urine Negative (Negative); Blood,Urine Small (Negative); Color,Urine Yellow; Glucose,Urine (UA) Negative (Negative); Ketones,Urine Negative (Negative); Leukocyte Esterase,Urine Large (Negative); Mucus,Urine Many /hpf; Nitrite,Urine Negative (Negative); PH, Urine 5.5 (5.0-8.0); Protein,Urine 1+ (Negative); RBC,Urine 50 /hpf (0-5); Specific Gravity,Urine 1.045 (1.001-1.035); Squamous Epithelial Cell,Urine 7 /hpf (0-4); Urobilinogen,Urine <2.0 mg/dL (<2.0); WBC,Urine >182 /hpf (0-5)
[2022-12-05] MEDS ORDERED: ONDANSETRON 4 MG/2 ML VIAL IVP PRN (18:57)
[2022-12-05] MEDS ORDERED: HYDROmorphone 1 MG/ML 1 ML SYRINGE IVP PRN (18:57)
[2022-12-05] MEDS ORDERED: NALOXONE 0.4 MG/ML 1 ML VIAL IV PRN (18:57)
[2022-12-05] MEDS: SODIUM CHLORIDE 0.9% 1,000 ML IV SCH (19:15)
[2022-12-06] MEDS: HYDROmorphone 0.5 MG/0.5 ML SYRINGE IVP PRN (04:41)
--- NOTE | 2022-12-06 08:28 | P.HPIM ---
History of Present Illness H&P Date: 12/06/22 Chief Complaint: Dysuria with fever This is a 87-year-old white female with known history of chronic pain elements secondary to fibromyalgia with osteoarthritis. 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 The patient had computed tomography scan which did show bladder polyp. The patient is new to my practice but has no history of significant UTI issues. Anabolic therapy has been started. ID and urology has now been consulted. The patient states after being hydrated and having antibiotics that she feels much better. No diarrhea stated. Review of Systems Constitutional: Denies chills, Denies fever Eyes: denies blurred vision, denies pain Ears, nose, mouth and throat: Denies headache, Denies sore throat Cardiovascular: Denies chest pain, Denies shortness of breath Respiratory: Denies cough Gastrointestinal: Denies abdominal pain, Denies diarrhea, Denies nausea, Denies vomiting Genitourinary: Reports as per HPI, Reports dysuria Past Medical History Past Medical History: Asthma, Fibromyalgia, Hypertension, Osteoarthritis (OA), Thyroid Disorder Additional Past Medical History / Comment(s): Neuropathy History of Any Multi-Drug Resistant Organisms: None Reported Past Surgical History: Appendectomy, Joint Replacement Additional Past Surgical History / Comment(s): RIGHT KNEE Past Anesthesia/Blood Transfusion Reactions: No Reported Reaction Past Psychological History: Depression Smoking Status: Former smoker Past Alcohol Use History: None Reported Additional Past Alcohol Use History / Comment(s): states "smoked many years ago" Past Drug Use History: None Reported - Past Family History Father Family Medical History: Cancer Medications and Allergies Home Medications Medication Instructions Recorded Confirmed Type Levothyroxine Sodium [Synthroid] 50 mcg PO DAILY 05/13/14 12/05/22 History HYDROcodone/APAP 7.5-325MG [[place] 1 tab PO TID 06/20/16 12/05/22 History 7.5-325] Gabapentin 600 mg PO TID 10/01/20 12/05/22 History Pantoprazole Sodium [Protonix] 40 mg PO BID 10/01/20 12/05/22 History lisinopriL [Zestril] 20 mg PO DAILY 10/01/20 12/05/22 History Metoprolol Succinate (ER) [Toprol 25 mg PO DAILY 12/05/22 12/05/22 History Xl] Allergies Allergy/AdvReac Type Severity Reaction Status Date / Time No Known Allergies Allergy Verified 12/05/22 14:20 Physical Exam Vitals: Vital Signs Temp Pulse Pulse Resp BP BP Pulse Ox 12/06/22 02:00 97.7 F 74 70 17 140/91 155/86 96 12/06/22 01:14 72 18 156/96 96 12/05/22 21:09 76 16 112/77 94 L 12/05/22 17:35 64 18 156/96 100 12/05/22 13:38 97.4 F L 63 18 150/79 99 Intake and Output 12/05/22 12/06/22 12/06/22 22:59 06:59 14:59 Other: Weight 31.751 kg - Constitutional General appearance: cooperative, no acute distress - EENT Eyes: EOMI - Neck Neck: no lymphadenopathy - Respiratory Respiratory: bilateral: diminished - Cardiovascular Rhythm: regular Heart sounds: normal: S1, S2 Abnormal Heart Sounds: no S3 Gallop - Gastrointestinal General gastrointestinal: soft, no tenderness - Integumentary Integumentary: no cellulitis Results CBC & Chem 7: 12/05/22 14:20 12/05/22 14:20 Labs: Abnormal Lab Results - Last 24 Hours (Table) 12/05/22 12/05/22 12/05/22 Range/Units 14:20 14:20 14:20 Lymphocytes # 0.7 L (1.0-4.8) k/uL PT 12.8 H (10.0-12.5) sec INR 1.2 H (<1.2) Sodium 136 L (137-145) mmol/L BUN 26 H (7-17) mg/dL Calcium 8.1 L (8.4-10.2) mg/dL Total Protein 5.4 L (6.3-8.2) g/dL Albumin 3.1 L (3.5-5.0) g/dL Urine Appearance (Clear) Ur Specific [place] (1.001-1.035) Urine Protein (Negative) Urine Blood (Negative) Ur Leukocyte Esterase (Negative) Urine RBC (0-5) /hpf Urine WBC (0-5) /hpf Urine WBC Clumps (None) /hpf Ur Squamous Epith Cells (0-4) /hpf Urine Bacteria (None) /hpf Urine Mucus (None) /hpf 12/05/22 Range/Units 18:19 Lymphocytes # (1.0-4.8) k/uL PT (10.0-12.5) sec INR (<1.2) Sodium (137-145) mmol/L BUN (7-17) mg/dL Calcium (8.4-10.2) mg/dL Total Protein (6.3-8.2) g/dL Albumin (3.5-5.0) g/dL Urine Appearance Turbid H (Clear) Ur Specific [place] 1.045 H (1.001-1.035) Urine Protein 1+ H (Negative) Urine Blood Small H (Negative) Ur Leukocyte Esterase Large H (Negative) Urine RBC 50 H (0-5) /hpf Urine WBC >182 H (0-5) /hpf Urine WBC Clumps Moderate H (None) /hpf Ur Squamous Epith Cells 7 H (0-4) /hpf Urine Bacteria Many H (None) /hpf Urine Mucus Many H (None) /hpf Thrombosis Risk Factor Assmnt - Choose All That Apply Each Risk Factor Represents 3 Points: Age 75 years or older Thrombosis Risk Factor Assessment Total Risk Factor Score: 3 Thrombosis Risk Factor Assessment Level: Moderate Risk Assessment and Plan (1) Emphysematous cystitis Current Visit: Yes Status: Acute Code(s): N30.80 - OTHER CYSTITIS WITHOUT HEMATURIA SNOMED Code(s): 36642052 (2) Abdominal pain Current Visit: No Status: Acute Code(s): R10.9 - UNSPECIFIED ABDOMINAL PAIN SNOMED Code(s): 85176091 (3) Dehydration Current Visit: No Status: Acute Code(s): E86.0 - DEHYDRATION SNOMED Code(s): 86282055 (4) Nausea and vomiting Current Visit: No Status: Acute Code(s): R11.2 - NAUSEA WITH VOMITING, UNSPECIFIED SNOMED Code(s): 06696704 Plan: Continue current regimen of antibiotic treatment. We will go ahead and reconcile medications. The patient is otherwise DO NOT RESUSCITATE. Check CBC and CMP in a.m. Appreciate multiple consultants input. Anticipate discharge in the next 24-48 hours if she's tolerating diet and cleared by consultants
[2022-12-06] MEDS: HYDROcodone/APAP 7.5-325MG 1 EACH TAB PO SCH ×3 (09:09→21:32)
[2022-12-06] MEDS: PANTOPRAZOLE 40 MG TABLET PO SCH ×2 (09:09→16:41)
[2022-12-06] MEDS: METOPROLOL SUCCINATE (ER) 25 MG TAB.ER.24H PO SCH (09:09)
[2022-12-06] MEDS: lisinopriL 20 MG TAB PO SCH (09:09)
[2022-12-06] MEDS: GABAPENTIN 300 MG CAP PO SCH ×3 (09:10→21:31)
[2022-12-06] MEDS: LEVOTHYROXINE 50 MCG TAB PO SCH (09:10)
--- NOTE | 2022-12-06 12:12 | P.GSCN ---
History of Present Illness Consult date: 12/06/22 Reason for Consult: Emphysematous cystitis Requesting physician: Jayy Tinsley History of present illness: The patient is an 87-year-old white female with a primary complaint of fatigue. She has recently experienced urinary frequency and intermittent dysuria. She denies any prior history of urolithiasis. She has been treated for occasional UTIs throughout her life. She denies pneumaturia and hematuria. Review of Systems - Constitutional Reports fatigue, Reports poor appetite, Denies chills, Denies fever - Cardiovascular Reports high blood pressure, Denies chest pain - Respiratory Denies dyspnea - Genitourinary Genitourinary: Reports as per HPI Past Medical History Past Medical History: Asthma, Fibromyalgia, Hypertension, Osteoarthritis (OA), Thyroid Disorder Additional Past Medical History / Comment(s): Neuropathy History of Any Multi-Drug Resistant Organisms: None Reported Past Surgical History: Appendectomy, Joint Replacement Additional Past Surgical History / Comment(s): RIGHT KNEE Past Anesthesia/Blood Transfusion Reactions: No Reported Reaction Past Psychological History: Depression Smoking Status: Former smoker Past Alcohol Use History: None Reported Additional Past Alcohol Use History / Comment(s): states "smoked many years ago" Past Drug Use History: None Reported - Past Family History Father Family Medical History: Cancer Medications and Allergies Home Medications Medication Instructions Recorded Confirmed Type Levothyroxine Sodium [Synthroid] 50 mcg PO DAILY 05/13/14 12/05/22 History HYDROcodone/APAP 7.5-325MG [[place] 1 tab PO TID 06/20/16 12/05/22 History 7.5-325] Gabapentin 600 mg PO TID 10/01/20 12/05/22 History Pantoprazole Sodium [Protonix] 40 mg PO BID 10/01/20 12/05/22 History lisinopriL [Zestril] 20 mg PO DAILY 10/01/20 12/05/22 History Metoprolol Succinate (ER) [Toprol 25 mg PO DAILY 12/05/22 12/05/22 History Xl] Allergies Allergy/AdvReac Type Severity Reaction Status Date / Time No Known Allergies Allergy Verified 12/05/22 14:20 Surgical - Exam Vital Signs Temp Pulse Resp BP Pulse Ox 97.4 F L 63 18 150/79 99 12/05/22 13:38 12/05/22 13:38 12/05/22 13:38 12/05/22 13:38 12/05/22 13:38 - General well developed, well nourished, no distress - Respiratory normal respiratory effort - Abdomen Abdomen: soft, non tender, no guarding, no rigid, no rebound - Psychiatric oriented to time, oriented to person, oriented to place, speech is normal, memory intact Results - Labs 12/05/22 14:20 12/05/22 14:20 Abnormal Lab Results - Last 24 Hours (Table) 12/05/22 12/05/22 12/05/22 Range/Units 14:20 14:20 14:20 Lymphocytes # 0.7 L (1.0-4.8) k/uL PT 12.8 H (10.0-12.5) sec INR 1.2 H (<1.2) Sodium 136 L (137-145) mmol/L BUN 26 H (7-17) mg/dL Calcium 8.1 L (8.4-10.2) mg/dL Total Protein 5.4 L (6.3-8.2) g/dL Albumin 3.1 L (3.5-5.0) g/dL Urine Appearance (Clear) Ur Specific [place] (1.001-1.035) Urine Protein (Negative) Urine Blood (Negative) Ur Leukocyte Esterase (Negative) Urine RBC (0-5) /hpf Urine WBC (0-5) /hpf Urine WBC Clumps (None) /hpf Ur Squamous Epith Cells (0-4) /hpf Urine Bacteria (None) /hpf Urine Mucus (None) /hpf 12/05/22 Range/Units 18:19 Lymphocytes # (1.0-4.8) k/uL PT (10.0-12.5) sec INR (<1.2) Sodium (137-145) mmol/L BUN (7-17) mg/dL Calcium (8.4-10.2) mg/dL Total Protein (6.3-8.2) g/dL Albumin (3.5-5.0) g/dL Urine Appearance Turbid H (Clear) Ur Specific [place] 1.045 H (1.001-1.035) Urine Protein 1+ H (Negative) Urine Blood Small H (Negative) Ur Leukocyte Esterase Large H (Negative) Urine RBC 50 H (0-5) /hpf Urine WBC >182 H (0-5) /hpf Urine WBC Clumps Moderate H (None) /hpf Ur Squamous Epith Cells 7 H (0-4) /hpf Urine Bacteria Many H (None) /hpf Urine Mucus Many H (None) /hpf Diabetes panel 12/05/22 Range/Units 14:20 Sodium 136 L (137-145) mmol/L Potassium 3.6 (3.5-5.1) mmol/L Chloride 105 (98-107) mmol/L Carbon Dioxide 23 (22-30) mmol/L BUN 26 H (7-17) mg/dL Creatinine 0.58 (0.52-1.04) mg/dL Glucose 97 (74-99) mg/dL Calcium 8.1 L (8.4-10.2) mg/dL AST 23 (14-36) U/L ALT 12 (4-34) U/L Alkaline Phosphatase 55 (38-126) U/L Total Protein 5.4 L (6.3-8.2) g/dL Albumin 3.1 L (3.5-5.0) g/dL Calcium panel 12/05/22 Range/Units 14:20 Calcium 8.1 L (8.4-10.2) mg/dL Albumin 3.1 L (3.5-5.0) g/dL Pituitary panel 12/05/22 Range/Units 14:20 Sodium 136 L (137-145) mmol/L Potassium 3.6 (3.5-5.1) mmol/L Chloride 105 (98-107) mmol/L Carbon Dioxide 23 (22-30) mmol/L BUN 26 H (7-17) mg/dL Creatinine 0.58 (0.52-1.04) mg/dL Glucose 97 (74-99) mg/dL Calcium 8.1 L (8.4-10.2) mg/dL Adrenal panel 12/05/22 Range/Units 14:20 Sodium 136 L (137-145) mmol/L Potassium 3.6 (3.5-5.1) mmol/L Chloride 105 (98-107) mmol/L Carbon Dioxide 23 (22-30) mmol/L BUN 26 H (7-17) mg/dL Creatinine 0.58 (0.52-1.04) mg/dL Glucose 97 (74-99) mg/dL Calcium 8.1 L (8.4-10.2) mg/dL Total Bilirubin 0.9 (0.2-1.3) mg/dL AST 23 (14-36) U/L ALT 12 (4-34) U/L Alkaline Phosphatase 55 (38-126) U/L Total Protein 5.4 L (6.3-8.2) g/dL Albumin 3.1 L (3.5-5.0) g/dL - Imaging CT scan - abdomen: report reviewed, image reviewed CT scan - pelvis: report reviewed, image reviewed Assessment and Plan Assessment: The patient's bladder appears to be enlarged and multiloculated. This may be the result of multiple large bladder diverticuli. There is evidence of emphysematous cystitis, which typically occurs in diabetic patients. (1) Emphysematous cystitis Current Visit: Yes Status: Acute Code(s): N30.80 - OTHER CYSTITIS WITHOUT HEMATURIA SNOMED Code(s): 11429249 Plan: - Check postvoid residual. If bladder emptying is incomplete, a [place] catheter will be inserted. - Continue cefepime. - Await urine culture result. This is considered a complicated UTI and will require a prolonged course of antibiotics for resolution, likely approximately 4 weeks. Time with Patient: Greater than 30
[2022-12-06] MEDS: CEFEPIME 2 GM in SODIUM CHLORIDE 0.9% 100 ML IVPB SCH ×2 (12:17→23:58)
[2022-12-06 14:04] VITALS: BMI 14.6
[2022-12-06] MEDS: SODIUM CHLORIDE 0.9% 1,000 ML IV SCH ×2 (19:43→23:02)
--- NOTE | 2022-12-06 23:02 | P.CONS ---
History of Present Illness - Reason for Consult Consult date: 12/06/22 Emphysematous cystitis Requesting physician: Kuldip Garduno - Chief Complaint Abdominal pain and blood in the urine X 1 day - History of Present Illness Patient is a 87-year-old female with a past medical history significant for hypertension hypothyroidism fibromyalgia asthma presenting to the hospital yesterday afternoon for evaluation of fatigue myalgias urinary frequency intermittent dysuria and also having some blood in the urine patient did have mild dull aching pain to the suprapubic area without any radiation some nausea but no vomiting no diarrhea no chest pain shortness of breath or cough with the symptoms the patient has been evaluated on presentation to the hospital patient was afebrile and no fever has been recorded subsequently patient was not tachycardic hypotensive or hypoxic white count of 4.6 with lymphopenia creatinine was normal liver enzymes are normal urine was positive with large leukocyte esterase more than 182 WBC influenza RSV and COVID testing was negative patient did have a CT of abdominal pelvis urinary bladder with multiple diverticula air within the wall of urinary bladder is compatible with emphysematous cystitis infectious disease was consulted for further management of antibiotic therapy Review of Systems Positive point and negatives has been mentioned in the HPI, complete review of systems was performed and all other systems are negative Past Medical History Past Medical History: Asthma, Fibromyalgia, Hypertension, Osteoarthritis (OA), Thyroid Disorder Additional Past Medical History / Comment(s): Neuropathy History of Any Multi-Drug Resistant Organisms: None Reported Past Surgical History: Appendectomy, Joint Replacement Additional Past Surgical History / Comment(s): RIGHT KNEE Past Anesthesia/Blood Transfusion Reactions: No Reported Reaction Past Psychological History: Depression Smoking Status: Former smoker Past Alcohol Use History: None Reported Additional Past Alcohol Use History / Comment(s): states "smoked many years ago" Past Drug Use History: None Reported - Past Family History Father Family Medical History: Cancer Medications and Allergies Home Medications Medication Instructions Recorded Confirmed Type Levothyroxine Sodium [Synthroid] 50 mcg PO DAILY 05/13/14 12/05/22 History HYDROcodone/APAP 7.5-325MG [[place] 1 tab PO TID 06/20/16 12/05/22 History 7.5-325] Gabapentin 600 mg PO TID 10/01/20 12/05/22 History Pantoprazole Sodium [Protonix] 40 mg PO BID 10/01/20 12/05/22 History lisinopriL [Zestril] 20 mg PO DAILY 10/01/20 12/05/22 History Metoprolol Succinate (ER) [Toprol 25 mg PO DAILY 12/05/22 12/05/22 History Xl] Allergies Allergy/AdvReac Type Severity Reaction Status Date / Time No Known Allergies Allergy Verified 12/05/22 14:20 Physical Exam Vitals: Vital Signs Temp Pulse Pulse Resp BP BP Pulse Ox 12/06/22 07:30 70 17 12/06/22 07:18 90 18 134/81 97 12/06/22 02:00 97.7 F 74 70 17 140/91 155/86 96 12/06/22 01:14 72 18 156/96 96 12/05/22 21:09 76 16 112/77 94 L 12/05/22 17:35 64 18 156/96 100 12/05/22 13:38 97.4 F L 63 18 150/79 99 Intake and Output 12/05/22 12/06/22 12/06/22 22:59 06:59 14:59 Other: Voiding Method External Catheter Weight 31.751 kg GENERAL DESCRIPTION: Elderly female lying in bed, no distress. No tachypnea or accessory muscle of respiration use. HEENT: Shows Pallor , no scleral icterus. Oral mucous membrane is dry. No pharyngeal erythema or thrush NECK: Trachea central, no thyromegaly. LUNGS: Unlabored breathing. Clear to auscultation anteriorly. No wheeze or crackle. HEART: S1, S2, regular rate and rhythm. No loud murmur ABDOMEN: Soft, mild suprapubic tenderness , no guarding or rigidity, no organomegaly EXTREMITIES: No edema of feet. SKIN: No rash, no masses palpable. NEUROLOGICAL: The patient is awake, alert, oriented x3, mood and affect normal. Results CBC & Chem 7: 12/05/22 14:20 12/05/22 14:20 Labs: Abnormal Lab Results - Last 24 Hours (Table) 12/05/22 12/05/22 12/05/22 Range/Units 14:20 14:20 14:20 Lymphocytes # 0.7 L (1.0-4.8) k/uL PT 12.8 H (10.0-12.5) sec INR 1.2 H (<1.2) Sodium 136 L (137-145) mmol/L BUN 26 H (7-17) mg/dL Calcium 8.1 L (8.4-10.2) mg/dL Total Protein 5.4 L (6.3-8.2) g/dL Albumin 3.1 L (3.5-5.0) g/dL Urine Appearance (Clear) Ur Specific [place] (1.001-1.035) Urine Protein (Negative) Urine Blood (Negative) Ur Leukocyte Esterase (Negative) Urine RBC (0-5) /hpf Urine WBC (0-5) /hpf Urine WBC Clumps (None) /hpf Ur Squamous Epith Cells (0-4) /hpf Urine Bacteria (None) /hpf Urine Mucus (None) /hpf 12/05/22 Range/Units 18:19 Lymphocytes # (1.0-4.8) k/uL PT (10.0-12.5) sec INR (<1.2) Sodium (137-145) mmol/L BUN (7-17) mg/dL Calcium (8.4-10.2) mg/dL Total Protein (6.3-8.2) g/dL Albumin (3.5-5.0) g/dL Urine Appearance Turbid H (Clear) Ur Specific [place] 1.045 H (1.001-1.035) Urine Protein 1+ H (Negative) Urine Blood Small H (Negative) Ur Leukocyte Esterase Large H (Negative) Urine RBC 50 H (0-5) /hpf Urine WBC >182 H (0-5) /hpf Urine WBC Clumps Moderate H (None) /hpf Ur Squamous Epith Cells 7 H (0-4) /hpf Urine Bacteria Many H (None) /hpf Urine Mucus Many H (None) /hpf Assessment and Plan (1) Emphysematous cystitis Current Visit: Yes Status: Acute Code(s): N30.80 - OTHER CYSTITIS WITHOUT H EMATURIA SNOMED Code(s): 99045993 Plan: 1patient presented to hospital with generalized weakness body aches patient did have urinary frequency dysuria and hematuria with significant abnormality of the bladder on the CT suspicious for emphysematous cystitis likely from enteric gram-negative pathogen 2-we will start the patient cefepime 2 g every 8 hours while waiting for the culture to finalize Multiple question concern answered We will follow on clinical condition and cultures to further adjust medication if needed Thank you for this consultation we will follow the patient along with you Dictation was produced using [employer] dictation software. please excuse any grammatical, word or spelling errors. Time with Patient: Greater than 30
[2022-12-07] MEDS: LEVOTHYROXINE 50 MCG TAB PO SCH (06:20)
[2022-12-07] MEDS: PANTOPRAZOLE 40 MG TABLET PO SCH ×2 (06:20→17:54)
[2022-12-07 08:12] LABS: ALT 11 U/L (4-34); AST 23 U/L (14-36); African American GFR (CKD) >90 (>60 ml/min/1.73 sqM); Albumin 2.8 g/dL (3.5-5.0); Albumin/Globulin Ratio 1.2; Alkaline Phosphatase 38 U/L (38-126); Anion Gap 7 mmol/L; Blood Urea Nitrogen 21 mg/dL (7-17); Calcium 8.4 mg/dL (8.4-10.2); Carbon Dioxide 22 mmol/L (22-30); Chloride 107 mmol/L (98-107); Globulin 2.3 g/dL; Glucose 89 mg/dL (74-99); Non-African American GFR(CKD) >90 (>60 ml/min/1.73 sqM); Sodium 136 mmol/L (137-145); Total Bilirubin 0.6 mg/dL (0.2-1.3); Total Protein 5.1 g/dL (6.3-8.2)
[2022-12-07 08:38] LABS: Potassium 3.8 mmol/L (3.5-5.1)
[2022-12-07] MEDS: GABAPENTIN 300 MG CAP PO SCH ×4 (09:03→20:03)
[2022-12-07] MEDS: HYDROcodone/APAP 7.5-325MG 1 EACH TAB PO SCH ×3 (09:03→20:02)
[2022-12-07] MEDS: lisinopriL 20 MG TAB PO SCH (09:03)
[2022-12-07] MEDS: METOPROLOL SUCCINATE (ER) 25 MG TAB.ER.24H PO SCH (09:03)
--- NOTE | 2022-12-07 10:03 | P.PN ---
Subjective Progress Note Date: 12/07/22 The patient is in the hospital with a urinary tract infection. We've been seeing her for this as well as a bladder with diverticula. She has no complaints urologically Objective - Vital Signs Vital signs: Vital Signs Temp 97.6 F 12/07/22 02:00 Pulse 64 12/07/22 07:23 Resp 18 12/07/22 07:23 BP 134/84 12/07/22 07:23 Pulse Ox 98 12/07/22 07:23 FiO2 Intake & Output 12/06/22 12/07/22 12/07/22 18:59 06:59 18:59 Weight 31.751 kg Other: Voiding Method External Catheter External Catheter # Voids 1 - Labs CBC & Chem 7: 12/05/22 14:20 12/07/22 07:08 Labs: Abnormal Lab Results - Last 24 Hours (Table) 12/07/22 Range/Units 07:08 Sodium 136 L (137-145) mmol/L BUN 21 H (7-17) mg/dL Creatinine 0.41 L (0.52-1.04) mg/dL Total Protein 5.1 L (6.3-8.2) g/dL Albumin 2.8 L (3.5-5.0) g/dL Microbiology - Last 24 Hours (Table) 12/05/22 18:19 Urine Culture - Preliminary Urine,Clean Catch Gram Neg Bacilli Assessment and Plan Assessment: Impression: Urinary tract infection with sepsis, bladder diverticula. Recommendations: When the cultures are back appropriate oral antibiotics can be started. From urologic standpoint and was she is complaining of significant problems or has significant numbers of urine infection nothing further would be done of the bladder.
[2022-12-07 11:15] LABS: HCT 44.3 % (34.0-46.0); HGB 13.9 gm/dL (11.4-16.0); Hypochromasia Moderate; MCH 31.5 pg (25.0-35.0); MCHC 31.3 g/dL (31.0-37.0); MCV 100.6 fL (80.0-100.0); Macrocytosis Slight; Mean Platelet Volume 7.4; Platelet Count 157 k/uL (150-450); RBC 4.41 m/uL (3.80-5.40); RDW 14.9 % (11.5-15.5); WBC 4.3 k/uL (3.8-10.6)
--- NOTE | 2022-12-07 12:05 | P.PN ---
Subjective Progress Note Date: 12/07/22 * 87-year-old white female with known history of chronic pain elements secondary to fibromyalgia with osteoarthritis. Patient presents with abdominal discomfort treated for emphysematous cystitis seen by infectious disease and urology CT abdomen and pelvis completed urine culture positive for gram-negative bacilli * 12/07/22: Patient seen and evaluated and bedside during my evaluation patient is alert and oriented 3 patient does complain of epigastric discomfort, eager to go home care plan discussed with her in detail denies of fever, chills, chest pain, nausea, vomiting Objective - Vital Signs Vital signs: Vital Signs Temp 97.6 F 12/07/22 02:00 Pulse 64 12/07/22 07:40 Resp 18 12/07/22 07:40 BP 134/84 12/07/22 07:23 Pulse Ox 98 12/07/22 07:23 FiO2 Intake & Output 12/06/22 12/07/22 12/07/22 18:59 06:59 18:59 Weight 31.751 kg Other: Voiding Method External Catheter External Catheter External Catheter # Voids 1 1 - Exam PHYSICAL EXAMINATION: GENERAL: The patient is alert and oriented x3, not in any acute distress. Well developed, well nourished. HEENT: Pupils are round and equally reacting to light. EOMI. CARDIOVASCULAR: S1 and S2 present. No murmurs, rubs, or gallops. PULMONARY: Chest is clear to auscultation, no wheezing or crackles. ABDOMEN: Soft, mild epigastric discomfort, abdomen distended MUSCULOSKELETAL: No joint swelling or deformity. EXTREMITIES: No cyanosis, clubbing, or pedal edema. NEUROLOGICAL: Gross neurological examination did not reveal any focal deficits. SKIN: No rashes. - Labs CBC & Chem 7: 12/07/22 10:51 12/07/22 07:08 Labs: Abnormal Lab Results - Last 24 Hours (Table) 12/07/22 12/07/22 Range/Units 07:08 10:51 MCV 100.6 H (80.0-100.0) fL Sodium 136 L (137-145) mmol/L BUN 21 H (7-17) mg/dL Creatinine 0.41 L (0.52-1.04) mg/dL Total Protein 5.1 L (6.3-8.2) g/dL Albumin 2.8 L (3.5-5.0) g/dL Microbiology - Last 24 Hours (Table) 12/05/22 18:19 Urine Culture - Preliminary Urine,Clean Catch Gram Neg Bacilli Assessment and Plan Assessment: Assessment and plan * Urinary tract infection with emphysematous cystitis * Hypothyroid * Hypertension * Chronic pain syndrome * In regards to urinary tract infection, continue patient on IV cefepime, urine cultures ordered infectious disease following * In regards to chronic pain, continue patient on gabapentin, * In regards to hypertension, continue lisinopril and metoprolol * SCDs for DVT prophylaxis * Follow up on CBC and basic metabolic panel
--- NOTE | 2022-12-07 13:12 | P.PN ---
Subjective Progress Note Date: 12/07/22 Principal diagnosis: emphysematous cystiti Patient is a 87-year-old female with a past medical history significant for hypertension hypothyroidism fibromyalgia asthma presenting to the hospital for evaluation of fatigue myalgias urinary frequency intermittent dysuria and also having some blood in the urine, patient did have a CT with evidence of emphysematous cystitis on Todays evaluation that is 12/07/2022, the patient denies any fever or any chills, the patient is breathing comfortably on room air , the patient denies chest pain, shortness of breath and no significant cough, patient denies abdominal pain, no nausea/vomiting or diarrhea Patient did have white count of 4.3, creatinine 0.41 cultures currently pending Objective - Vital Signs Vital signs: Vital Signs Temp 97.6 F 12/07/22 02:00 Pulse 64 12/07/22 07:40 Resp 18 12/07/22 07:40 BP 134/84 12/07/22 07:23 Pulse Ox 98 12/07/22 07:23 FiO2 Intake & Output 12/06/22 12/07/22 12/07/22 18:59 06:59 18:59 Weight 31.751 kg Other: Voiding Method External Catheter External Catheter External Catheter # Voids 1 1 - Exam GENERAL DESCRIPTION: An elderly female lying in bed in no distress RESPIRATORY SYSTEM: Unlabored breathing , decreased breath sounds at bases HEART: S1 S2 regular rate and rhythm , ABDOMEN: Soft , no tenderness EXTREMITIES: No edema feet - Labs CBC & Chem 7: 12/07/22 10:51 12/07/22 07:08 Labs: Abnormal Lab Results - Last 24 Hours (Table) 12/07/22 12/07/22 Range/Units 07:08 10:51 MCV 100.6 H (80.0-100.0) fL Sodium 136 L (137-145) mmol/L BUN 21 H (7-17) mg/dL Creatinine 0.41 L (0.52-1.04) mg/dL Total Protein 5.1 L (6.3-8.2) g/dL Albumin 2.8 L (3.5-5.0) g/dL Microbiology - Last 24 Hours (Table) 12/05/22 18:19 Urine Culture - Preliminary Urine,Clean Catch Gram Neg Bacilli Assessment and Plan (1) Emphysematous cystitis Current Visit: Yes Status: Acute Code(s): N30.80 - OTHER CYSTITIS WITHOUT HEMATURIA SNOMED Code(s): 84320129 Plan: 1patient presented to hospital with generalized weakness body aches patient did have urinary frequency dysuria and hematuria with significant abnormality of the bladder on the CT suspicious for emphysematous cystitis likely from enteric gram-negative pathogen 2-we will continue the patient cefepime 2 g every 8 hours while waiting for the culture to finalize and monitor clinical course closely Dictation was produced using [employer] dictation software. please excuse any grammatical, word or spelling errors.
[2022-12-07] MEDS: CALCIUM CARBONATE 500 MG CHEWABLE PO SCH ×2 (13:45→17:53)
[2022-12-07] MEDS: CEFEPIME 2 GM in SODIUM CHLORIDE 0.9% 100 ML IVPB SCH (13:45)
[2022-12-07] MEDS: SODIUM CHLORIDE 0.9% 1,000 ML IV SCH (20:01)
[2022-12-08] MEDS: CEFEPIME 2 GM in SODIUM CHLORIDE 0.9% 100 ML IVPB SCH ×2 (00:08→13:35)
[2022-12-08] MEDS: SODIUM CHLORIDE 0.9% 1,000 ML IV SCH ×2 (00:10→20:26)
[2022-12-08] MEDS: LEVOTHYROXINE 50 MCG TAB PO SCH (06:01)
[2022-12-08] MEDS: GABAPENTIN 300 MG CAP PO SCH ×3 (07:43→20:26)
[2022-12-08] MEDS: CALCIUM CARBONATE 500 MG CHEWABLE PO SCH ×3 (07:43→16:38)
[2022-12-08] MEDS: lisinopriL 20 MG TAB PO SCH (08:40)
[2022-12-08] MEDS: METOPROLOL SUCCINATE (ER) 25 MG TAB.ER.24H PO SCH (08:40)
[2022-12-08] MEDS: HYDROcodone/APAP 7.5-325MG 1 EACH TAB PO SCH ×3 (08:40→20:25)
[2022-12-08] MEDS: PANTOPRAZOLE 40 MG TABLET PO SCH ×2 (08:40→16:50)
--- NOTE | 2022-12-08 12:25 | P.PN ---
Subjective Progress Note Date: 12/08/22 * 87-year-old white female with known history of chronic pain elements secondary to fibromyalgia with osteoarthritis. Patient presents with abdominal discomfort treated for emphysematous cystitis seen by infectious disease and urology CT abdomen and pelvis completed urine culture positive for gram-negative bacilli * 12/07/22: Patient seen and evaluated and bedside during my evaluation patient is alert and oriented 3 patient does complain of epigastric discomfort, eager to go home care plan discussed with her in detail denies of fever, chills, chest pain, nausea, vomiting * 12/08/22: Patient seen and evaluated bedside, patient does complain of heartburn denies abdominal pain. Patient complained of weakness and fatigue. Objective - Vital Signs Vital signs: Vital Signs Temp 97.5 F L 12/08/22 07:20 Pulse 74 12/08/22 07:20 Resp 18 12/08/22 07:20 BP 161/96 12/08/22 07:20 Pulse Ox 99 12/08/22 07:20 FiO2 Intake & Output 12/07/22 12/08/22 12/08/22 18:59 06:59 18:59 Other: Voiding Method External Catheter External Catheter External Catheter # Voids 4 3 - Exam PHYSICAL EXAMINATION: GENERAL: The patient is alert and oriented x3, not in any acute distress. Well developed, well nourished. HEENT: Pupils are round and equally reacting to light. EOMI. CARDIOVASCULAR: S1 and S2 present. No murmurs, rubs, or gallops. PULMONARY: Chest is clear to auscultation, no wheezing or crackles. ABDOMEN: Soft, mild epigastric discomfort, abdomen distended MUSCULOSKELETAL: No joint swelling or deformity. EXTREMITIES: No cyanosis, clubbing, or pedal edema. NEUROLOGICAL: Gross neurological examination did not reveal any focal deficits. SKIN: No rashes. - Labs CBC & Chem 7: 12/07/22 10:51 12/07/22 07:08 Labs: Microbiology - Last 24 Hours (Table) 12/05/22 18:19 Urine Culture - Final Urine,Clean Catch Escherichia coli Assessment and Plan Assessment: Assessment and plan * Urinary tract infection with emphysematous cystitis, E. coli urinary tract infection * Hypothyroid * Hypertension * Chronic pain syndrome * In regards to urinary tract infection, continue patient on IV cefepime, urine cultures grew E. coli infectious disease following * In regards to chronic pain, continue patient on gabapentin, * In regards to hypertension, continue lisinopril and metoprolol * SCDs for DVT prophylaxis * Follow up on CBC and basic metabolic panel
[2022-12-08 13:25] LABS: HCT 40.3 % (37.2-46.3); HGB 12.4 d/dL (12.0-15.0); MCH 30.7 pg (27.0-32.0); MCHC 30.8 d/dL (32.0-37.0); MCV 99.8 FL (80.0-97.0); Mean Platelet Volume 8.9 FL (9.5-12.2); NRBC Per 100 WBC 0 X 10*3/uL (0.00-0.01); Platelet Count 151 X 10*3/uL (140-440); RBC 4.04 X 10*6/uL (4.10-5.20); RDW 15.1 % (11.5-14.5); WBC 3.11 X 10*3/uL (4.50-10.00)
[2022-12-08 13:27] LABS: Blood Urea Nitrogen 17.5 mg/dL (9.0-27.0); Calcium 8.4 mg/dL (8.7-10.3); Carbon Dioxide 25.2 mmol/L (21.6-31.8); Chloride 109 mmol/L (96-109); Glucose 88 mg/dL (70-110); Potassium 4.1 mmol/L (3.5-5.5); Sodium 142 mmol/L (135-145)
--- NOTE | 2022-12-08 14:53 | P.PN ---
Subjective Progress Note Date: 12/08/22 Principal diagnosis: emphysematous cystiti Patient is a 87-year-old female with a past medical history significant for hypertension hypothyroidism fibromyalgia asthma presenting to the hospital for evaluation of fatigue myalgias urinary frequency intermittent dysuria and also having some blood in the urine, patient did have a CT with evidence of emphysematous cystitis on Todays evaluation that is 12/08/2022, the patient remains to be afebrile, the patient is breathing comfortably on room air without the need for supplemental oxygen , the patient denies chest pain or cough, patient has been complaining of some epigastric discomfort and nausea but no vomiting or diarrhea and urinary symptoms has improved Patient did have white count of 3.11, creatinine 0.5 , cultures grew E. coli that is a sensitive pathogen Objective - Vital Signs Vital signs: Vital Signs Temp 97.5 F L 12/08/22 07:20 Pulse 71 12/08/22 13:31 Resp 18 12/08/22 13:31 BP 154/94 12/08/22 13:31 Pulse Ox 96 12/08/22 13:31 FiO2 Intake & Output 12/07/22 12/08/22 12/08/22 18:59 06:59 18:59 Other: Voiding Method External Catheter External Catheter External Catheter # Voids 4 3 - Exam GENERAL DESCRIPTION: An elderly female lying in bed in no distress RESPIRATORY SYSTEM: Unlabored breathing , decreased breath sounds at bases HEART: S1 S2 regular rate and rhythm , ABDOMEN: Soft , no tenderness EXTREMITIES: No edema feet - Labs CBC & Chem 7: 12/08/22 05:58 12/08/22 05:58 Labs: Abnormal Lab Results - Last 24 Hours (Table) 12/08/22 12/08/22 Range/Units 05:58 05:58 WBC 3.11 L (4.50-10.00) X 10*3/uL RBC 4.04 L (4.10-5.20) X 10*6/uL MCV 99.8 H (80.0-97.0) FL MCHC 30.8 L (32.0-37.0) d/dL RDW 15.1 H (11.5-14.5) % MPV 8.9 L (9.5-12.2) FL Creatinine 0.5 L (0.6-1.5) mg/dL BUN/Creatinine Ratio 35.00 H (12.00-20.00) Ratio Calcium 8.4 L (8.7-10.3) mg/dL Microbiology - Last 24 Hours (Table) 12/05/22 18:19 Urine Culture - Final Urine,Clean Catch Escherichia coli Assessment and Plan (1) Emphysematous cystitis Current Visit: Yes Status: Acute Code(s): N30.80 - OTHER CYSTITIS WITHOUT HEMATURIA SNOMED Code(s): 52175161 Plan: 1patient presented to hospital with generalized weakness body aches patient did have urinary frequency dysuria and hematuria with significant abnormality of the bladder on the CT suspicious for emphysematous cystitis likely from enteric gram-negative pathogen, culture did grow E. coli that is a sensitive pathogen 2-we will discontinue cefepime 2 g every 8 hours , start the patient Rocephin 2 g daily and monitor clinical course closely Dictation was produced using [employer] dictation software. please excuse any grammatical, word or spelling errors. Time with Patient: Less than 30
[2022-12-08] MEDS: HYDROmorphone 0.5 MG/0.5 ML SYRINGE IVP PRN ×2 (16:50→22:18)
--- NOTE | 2022-12-08 18:24 | XR ---
EXAMINATION TYPE: XR KUB DATE OF EXAM: 12/08/2022 6:10 PM CLINICAL INDICATION:Female, 87 years old with history of Increased pain; [facility] COMPARISON: CT 12/05/2022. TECHNIQUE: One radiographic view of the abdomen was obtained. FINDINGS: There is excreted IV contrast within the large distended urinary bladder with multiple dive rticula correlating with prior CT. Biliary stent in the right upper quadrant is in similar position g iven differences in technique. No evidence for bowel obstruction. No evidence for acute fracture. The bowel pattern is nonspecific. IMPRESSION: High-density contrast extends over the lower abdomen which is likely representing excreted IV contras t in the urinary latter which is distended with multiple diverticula and comparing with prior 023 CT.
[2022-12-09] MEDS: SODIUM CHLORIDE 0.9% 1,000 ML IV SCH ×2 (02:39→16:26)
[2022-12-09] MEDS: LEVOTHYROXINE 50 MCG TAB PO SCH (05:20)
[2022-12-09] MEDS: METOPROLOL SUCCINATE (ER) 25 MG TAB.ER.24H PO SCH (07:47)
[2022-12-09] MEDS: lisinopriL 20 MG TAB PO SCH (07:47)
[2022-12-09] MEDS: PANTOPRAZOLE 40 MG TABLET PO SCH ×2 (07:47→16:26)
[2022-12-09] MEDS: GABAPENTIN 300 MG CAP PO SCH ×3 (07:48→22:23)
[2022-12-09] MEDS: HYDROcodone/APAP 7.5-325MG 1 EACH TAB PO SCH ×3 (07:48→22:23)
[2022-12-09] MEDS: CALCIUM CARBONATE 500 MG CHEWABLE PO SCH ×3 (07:48→16:20)
--- NOTE | 2022-12-09 09:13 | P.PN ---
Subjective Progress Note Date: 12/09/22 Principal diagnosis: Dysuria with fever This is an 87-year-old female with a known history of chronic pain secondary to fibromyalgia and arthritis. Patient presented to the emergency room with complaints of dysuria and fever, and was found to have cystitis and elements of severe UTI. Urine culture shows E. coli. She is on Rocephin. Urology and infectious disease has been consulted. Patient reports she is feeling somewhat better but does not have much of an appetite. She is seen this morning sitting up in bed, did not want any of her breakfast. Objective - Vital Signs Vital signs: Vital Signs Temp 98.3 F 12/09/22 07:28 Pulse 88 12/09/22 07:28 Resp 16 12/09/22 07:28 BP 158/92 12/09/22 07:28 Pulse Ox 97 12/09/22 07:28 FiO2 Intake & Output 12/08/22 12/09/22 12/09/22 18:59 06:59 18:59 Intake Total 1225 Balance 1225 Intake: Intake, IV Titration 675 Amount Cefepime 2 gm In Sodium 100 Chloride 0.9% 100 ml @ 25 mls/hr IVPB Q12H [facility] Rx# :[id number] Sodium Chloride 0.9% 1, 525 000 ml @ 75 mls/hr IV . [id number] Rx#:[id number] cefTRIAXone 2 gm In 50 Sodium Chloride 0.9% 50 ml @ 100 mls/hr IVPB Q24HR [facility] Rx#:[id number] Oral 550 Other: Voiding Method External Catheter External Catheter Incontinent # Voids 3 - Constitutional General appearance: Present: cooperative, no acute distress - EENT Eyes: Present: PERRLA - Neck Neck: Present: normal ROM. Absent: lymphadenopathy, rigidity - Respiratory Respiratory: bilateral: CTA - Cardiovascular Rhythm: regular Heart sounds: normal: S1, S2 - Gastrointestinal General gastrointestinal: Present: soft. Absent: tenderness - Integumentary Integumentary: Present: normal, normal turgor - Musculoskeletal Musculoskeletal: Present: generalized weakness - Psychiatric Psychiatric: Present: A&O x's 3 - Labs CBC & Chem 7: 12/08/22 05:58 12/08/22 05:58 Labs: Abnormal Lab Results - Last 24 Hours (Table) 12/08/22 12/08/22 12/08/22 Range/Units 05:58 05:58 18:48 WBC 3.11 L (4.50-10.00) X 10*3/uL RBC 4.04 L (4.10-5.20) X 10*6/uL MCV 99.8 H (80.0-97.0) FL MCHC 30.8 L (32.0-37.0) d/dL RDW 15.1 H (11.5-14.5) % MPV 8.9 L (9.5-12.2) FL Creatinine 0.5 L (0.6-1.5) mg/dL BUN/Creatinine Ratio 35.00 H (12.00-20.00) Ratio Calcium 8.4 L (8.7-10.3) mg/dL Lipase 417 H (23-300) U/L Assessment and Plan (1) Emphysematous cystitis Current Visit: Yes Status: Acute Code(s): N30.80 - OTHER CYSTITIS WITHOUT HEMATURIA SNOMED Code(s): 40550627 (2) Abdominal pain Current Visit: No Status: Acute Code(s): R10.9 - UNSPECIFIED ABDOMINAL PAIN SNOMED Code(s): 90897919 (3) Dehydration Current Visit: No Status: Acute Code(s): E86.0 - DEHYDRATION SNOMED Code(s): 89985500 (4) Nausea and vomiting Current Visit: No Status: Acute Code(s): R11.2 - NAUSEA WITH VOMITING, UNSPECIFIED SNOMED Code(s): 14740555 Plan: Check CBC and CMP in the morning. We'll consult dietitian because of patient's poor oral intake. Await final recommendations for discharge antibiotics. Patient seen and evaluated by nurse practitioner, physician in agreement with plan
[2022-12-09] MEDS: HYDROmorphone 0.5 MG/0.5 ML SYRINGE IVP PRN (11:11)
[2022-12-09] MEDS ORDERED: IOPAMIDOL CONTRAST (ORAL USE) VIAL PO PRN ×2 (12:16→13:07)
--- NOTE | 2022-12-09 15:12 | CT ---
EXAMINATION TYPE: CT abdomen pelvis w con CT DLP: 427.3 mGycm, Automated exposure control for dose reduction was used. DATE OF EXAM: 12/09/2022 2:53 PM COMPARISON: CT abdomen pelvis most recent from 12/05/2022 . CLINICAL INDICATION:Female, 87 years old with history of abdominal pain.; abdominal pain TECHNIQUE: Standard CT of the abdomen and pelvis following the administration of 100 cc of Isovue 3 00 IV contrast material and oral contrast. Coronal and sagittal reformats were performed. FINDINGS: LOWER CHEST: Unremarkable ABDOMEN LIVER: Unremarkable GALLBLADDER AND BILE DUCTS: Similar distended gallbladder with cholelithiasis demonstrated. Common bi le duct stent identified in stable position. Mild intrahepatic biliary duct dilatation redemonstrated . PANCREAS: Unremarkable. SPLEEN: Unremarkable. ADRENAL GLANDS: Unremarkable. KIDNEYS AND URETERS: No evidence of hydronephrosis or renal calculus. The kidneys enhance symmetrical ly. Contrast is demonstrated within both collecting systems on the delayed phase. Similar bilateral e xtrarenal pelvises. PELVIS BLADDER/REPRODUCTIVE: Moderately distended with diverticulum redemonstrated. One of the posterior div erticula contains layering contrast. There is decrease gas within the urinary bladder wall from prior exam. Redemonstration of multiple large thin-walled suggested urinary bladder diverticula with some containing layering contrast. ABDOMEN & PELVIS STOMACH AND BOWEL: Moderate to large hiatal hernia redemonstrated. Enteric contrast reaches the dista l small bowel. No focal bowel wall thickening or surrounding inflammatory changes. No evidence of bow el obstruction. PERITONEUM: No evidence of pneumoperitoneum or free fluid. VASCULATURE: Moderate atherosclerotic calcifications are present throughout the abdominal aorta and i ts branches. No evidence of aortic aneurysm. MUSCULOSKELETAL: No acute osseous abnormalities. Grade 1 anterolisthesis of L4 on L5. Mild multilevel degenerative disc disease. LYMPH NODES: No gross evidence for lymphadenopathy. SOFT TISSUE/ABDOMINAL WALL: Few foci gas demonstrated within the bilateral thigh soft tissues. IMPRESSION: 1. Redemonstration of large thin-walled cystic pelvic mass favored to represent the urinary bladder with multiple diverticulum containing layering contrast. Decreased emphysematous gas within the urina ry bladder wall from prior exam. Consider Morley catheter placement. 2. Colonic diverticulitis without evidence for acute diverticulitis. 3. Moderate to large hiatal hernia redemonstrated. 4. Similar distended gallbladder with gallstones identified. Similar intra and extra biliary ductal d ilatation with common bile duct stent identified.
[2022-12-10] MEDS: HYDROmorphone 0.5 MG/0.5 ML SYRINGE IVP PRN ×4 (04:18→18:09)
[2022-12-10] MEDS: CALCIUM CARBONATE 500 MG CHEWABLE PO SCH ×3 (07:04→15:30)
[2022-12-10] MEDS: LEVOTHYROXINE 50 MCG TAB PO SCH (07:05)
[2022-12-10] MEDS: SODIUM CHLORIDE 0.9% 1,000 ML IV SCH (07:05)
[2022-12-10] MEDS: PANTOPRAZOLE 40 MG TABLET PO SCH ×2 (07:05→17:33)
[2022-12-10] MEDS: GABAPENTIN 300 MG CAP PO SCH ×3 (08:34→21:18)
[2022-12-10] MEDS: lisinopriL 20 MG TAB PO SCH (08:35)
[2022-12-10] MEDS: HYDROcodone/APAP 7.5-325MG 1 EACH TAB PO SCH ×3 (08:35→21:19)
[2022-12-10] MEDS: METOPROLOL SUCCINATE (ER) 50 MG TAB.ER.24H PO SCH (08:43)
--- NOTE | 2022-12-10 09:23 | P.PN ---
Subjective Progress Note Date: 12/10/22 Principal diagnosis: Dysuria with fever This is an 87-year-old female with a known history of chronic pain secondary to fibromyalgia and arthritis. Patient presented to the emergency room with complaints of dysuria and fever, and was found to have cystitis and elements of severe UTI. Urine culture shows E. coli. She is on Rocephin. Urology and infectious disease has been consulted. Patient reports she is feeling somewhat better but does not have much of an appetite. She is seen this morning sitting up in bed, did not want any of her breakfast. 12/10/2022 Patient seen and evaluated sitting up in bed this morning. She reports she continues to have abdominal pain and is not eating. Dietitian recommended adding Megace. Discussion with patient this morning on recent hospitalizations, she was in [facility] last year and transferred to [facility] due to a ovarian mass. Patient somewhat confused and unable to tell us exactly what happened last year. We will work on getting records from these institutions. Patient's lipase elevated, will repeat today. Objective - Vital Signs Vital signs: Vital Signs Temp 98.8 F 12/10/22 07:36 Pulse 85 12/10/22 07:36 Resp 17 12/10/22 07:36 BP 165/99 12/10/22 07:36 Pulse Ox 98 12/10/22 07:36 FiO2 Intake & Output 12/09/22 12/10/22 12/10/22 18:59 06:59 18:59 Weight 31.751 kg Other: Voiding Method Incontinent Incontinent # Voids 5 4 # Bowel Movements 1 - Constitutional General appearance: Present: cooperative, no acute distress - EENT Eyes: Present: PERRLA - Neck Neck: Present: normal ROM. Absent: lymphadenopathy, rigidity - Respiratory Respiratory: bilateral: CTA - Cardiovascular Rhythm: regular Heart sounds: normal: S1, S2 - Gastrointestinal General gastrointestinal: Present: soft, tenderness - Integumentary Integumentary: Present: normal, normal turgor - Musculoskeletal Musculoskeletal: Present: generalized weakness - Psychiatric Psychiatric: Present: A&O x's 3 - Labs CBC & Chem 7: 12/08/22 05:58 12/08/22 05:58 Assessment and Plan (1) Emphysematous cystitis Current Visit: Yes Status: Acute Code(s): N30.80 - OTHER CYSTITIS WITHOUT HE MATURIA SNOMED Code(s): 61778177 (2) Abdominal pain Current Visit: No Status: Acute Code(s): R10.9 - UNSPECIFIED ABDOMINAL PAIN SNOMED Code(s): 79139108 (3) Dehydration Current Visit: No Status: Acute Code(s): E86.0 - DEHYDRATION SNOMED Code(s): 82758241 (4) Nausea and vomiting Current Visit: No Status: Acute Code(s): R11.2 - NAUSEA WITH VOMITING, UNSPECIFIED SNOMED Code(s): 54671151 Plan: Check CBC and CMP in the morning. Check lipase and amylase today Await final recommendations for discharge antibiotics. Obtain records from previous hospital admissions Patient seen and evaluated by nurse practitioner, physician in agreement with plan
[2022-12-10 09:27] LABS: BUN/Creat Ratio 12.75 Ratio (12.00-20.00); Blood Urea Nitrogen 5.1 mg/dL (9.0-27.0); Chloride 104 mmol/L (96-109); Glucose 93 mg/dL (70-110); Potassium 3.6 mmol/L (3.5-5.5); Sodium 140 mmol/L (135-145)
[2022-12-10 09:28] LABS: ALT 10 U/L (8-44); AST 17 U/L (13-35); Albumin 3.2 d/dL (3.8-4.9); Albumin/Globulin Ratio 1.88 Ratio (1.60-3.17); Alkaline Phosphatase 60 U/L (41-126); Calcium 8.5 mg/dL (8.7-10.3); Carbon Dioxide 27.2 mmol/L (21.6-31.8); Globulin 1.7 d/dL (1.6-3.3); Total Bilirubin 0.5 mg/dL (0.3-1.2); Total Protein 4.9 d/dL (6.2-8.2)
[2022-12-10 09:45] LABS: HCT 37.6 % (37.2-46.3); HGB 12.1 d/dL (12.0-15.0); MCHC 32.2 d/dL (32.0-37.0); MCV 96.4 FL (80.0-97.0); Mean Platelet Volume 8.3 FL (9.5-12.2); NRBC Per 100 WBC 0 X 10*3/uL (0.00-0.01); Platelet Count 155 X 10*3/uL (140-440); RDW 15.1 % (11.5-14.5); WBC 4.51 X 10*3/uL (4.50-10.00)
[2022-12-10] MEDS: MEGESTROL 400 MG/10 ML CUP PO SCH (10:32)
--- NOTE | 2022-12-10 14:37 | P.PN ---
Subjective Progress Note Date: 12/09/22 Principal diagnosis: emphysematous cystiti Patient is a 87-year-old female with a past medical history significant for hypertension hypothyroidism fibromyalgia asthma presenting to the hospital for evaluation of fatigue myalgias urinary frequency intermittent dysuria and also having some blood in the urine, patient did have a CT with evidence of emphysematous cystitis on Todays evaluation that is 12/09/2022, the patient continues to be afebrile, the patient is breathing comfortably on room air and denies any chest pain or cough, patient has been coming of some epigastric abdominal pain, and denies any nausea/vomiting or diarrhea Patient did have white count of 3.11, creatinine 0.5 as of 12/08/2022, cultures grew E. coli that is a sensitive pathogen Objective - Vital Signs Vital signs: Vital Signs Temp 98.3 F 12/09/22 07:28 Pulse 88 12/09/22 07:28 Resp 16 12/09/22 07:28 BP 158/92 12/09/22 07:28 Pulse Ox 97 12/09/22 07:28 FiO2 Intake & Output 12/08/22 12/09/22 12/09/22 18:59 06:59 18:59 Intake Total 1225 Balance 1225 Intake: Intake, IV Titration 675 Amount Cefepime 2 gm In Sodium 100 Chloride 0.9% 100 ml @ 25 mls/hr IVPB Q12H [facility] Rx# :[id number] Sodium Chloride 0.9% 1, 525 000 ml @ 75 mls/hr IV . [id number] [facility] Rx#:[id number] cefTRIAXone 2 gm In 50 Sodium Chloride 0.9% 50 ml @ 100 mls/hr IVPB Q24HR [facility] Rx#:[id number] Oral 550 Other: Voiding Method External Catheter External Catheter Incontinent # Voids 3 - Exam GENERAL DESCRIPTION: An elderly female lying in bed in no distress RESPIRATORY SYSTEM: Unlabored breathing , decreased breath sounds at bases HEART: S1 S2 regular rate and rhythm , ABDOMEN: Soft , no tenderness EXTREMITIES: No edema feet - Labs CBC & Chem 7: 12/10/22 06:26 12/10/22 06:26 Labs: Abnormal Lab Results - Last 24 Hours (Table) 12/08/22 12/08/22 12/08/22 Range/Units 05:58 05:58 18:48 WBC 3.11 L (4.50-10.00) X 10*3/uL RBC 4.04 L (4.10-5.20) X 10*6/uL MCV 99.8 H (80.0-97.0) FL MCHC 30.8 L (32.0-37.0) d/dL RDW 15.1 H (11.5-14.5) % MPV 8.9 L (9.5-12.2) FL Creatinine 0.5 L (0.6-1.5) mg/dL BUN/Creatinine Ratio 35.00 H (12.00-20.00) Ratio Calcium 8.4 L (8.7-10.3) mg/dL Lipase 417 H (23-300) U/L Assessment and Plan (1) Emphysematous cystitis Current Visit: Yes Status: Acute Code(s): N30.80 - OTHER CYSTITIS WITHOUT HEMATURIA SNOMED Code(s): 29638079 Plan: 1patient presented to hospital with generalized weakness body aches patient did have urinary frequency dysuria and hematuria with significant abnormality of the bladder on the CT suspicious for emphysematous cystitis likely from enteric gram-negative pathogen, culture did grow E. coli that is a sensitive pathogen 2-patient to continue with Rocephin 2 g daily and plan to finish therapy with oral antibiotics Dictation was produced using [employer] dictation software. please excuse any grammatical, word or spelling errors. Time with Patient: Less than 30
--- NOTE | 2022-12-10 14:39 | P.PN ---
Subjective Progress Note Date: 12/10/22 Principal diagnosis: emphysematous cystiti Patient is a 87-year-old female with a past medical history significant for hypertension hypothyroidism fibromyalgia asthma presenting to the hospital for evaluation of fatigue myalgias urinary frequency intermittent dysuria and also having some blood in the urine, patient did have a CT with evidence of emphysematous cystitis on Todays evaluation that is 12/10/2022, the patient remains to be afebrile, the patient is breathing comfortably on room air without the need for supplemental oxygen and denies any shortness of breath, the patient denies having any chest pain or cough, patient did have some nausea but no vomiting has been complaining of pain mostly in the epigastric right upper quadrant area, Patient did have white count of 4.51, creatinine 0.4 cultures grew E. coli that is a sensitive pathogen, patient did have a CT abdominal pelvis completed 12/06/2021 shows improvement in the emphysematous cystitis did shows evidence of gallstones Objective - Vital Signs Vital signs: Vital Signs Temp 98.1 F 12/10/22 13:01 Pulse 74 12/10/22 13:01 Resp 17 12/10/22 13:01 BP 166/92 12/10/22 13:01 Pulse Ox 96 12/10/22 13:01 FiO2 Intake & Output 12/09/22 12/10/22 12/10/22 18:59 06:59 18:59 Weight 31.751 kg Other: Voiding Method Incontinent Incontinent Toilet # Voids 5 4 # Bowel Movements 1 - Exam GENERAL DESCRIPTION: An elderly female lying in bed in no distress RESPIRATORY SYSTEM: Unlabored breathing , decreased breath sounds at bases HEART: S1 S2 regular rate and rhythm , ABDOMEN: Soft , no tenderness EXTREMITIES: No edema feet - Labs CBC & Chem 7: 12/10/22 06:26 12/10/22 06:26 Labs: Abnormal Lab Results - Last 24 Hours (Table) 12/10/22 12/10/22 Range/Units 06:26 06:26 RBC 3.90 L (4.10-5.20) X 10*6/uL RDW 15.1 H (11.5-14.5) % MPV 8.3 L (9.5-12.2) FL BUN 5.1 L (9.0-27.0) mg/dL Creatinine 0.4 L (0.6-1.5) mg/dL Calcium 8.5 L (8.7-10.3) mg/dL Total Protein 4.9 L (6.2-8.2) d/dL Albumin 3.2 L (3.8-4.9) d/dL Assessment and Plan (1) Emphysematous cystitis Current Visit: Yes Status: Acute Code(s): N30.80 - OTHER CYSTITIS WITHOUT HEMATURIA SNOMED Code(s): 51823680 Plan: 1patient presented to hospital with generalized weakness body aches patient did have urinary frequency dysuria and hematuria with significant abnormality of the bladder on the CT suspicious for emphysematous cystitis likely from enteric gram-negative pathogen, culture did grow E. coli that is a sensitive pathogen 2-patient has been combining of pain in the right upper quadrant epigastric area. Check an ultrasound to make sure no evidence of any cholecystitis 3-patient to continue with Rocephin 2 g daily and plan to finish therapy with oral Cipro 2 weeks and close outpatient follow-up Dictation was produced using [employer] dictation software. please excuse any gr ammatical, word or spelling errors. Time with Patient: Less than 30
--- NOTE | 2022-12-10 19:17 | US ---
EXAMINATION TYPE: US abdomen limited DATE OF EXAM: 12/10/2022 COMPARISON: CT: 12/09/22 CLINICAL INDICATION: Female, 87 years old with history of Right upper quadrant and epigastric pain; e pigastric pain TECHNIQUE: Multiple sonographic images of the right upper quadrant are obtained. FINDINGS: EXAM MEASUREMENTS: Liver Length: 11.5 cm Gallbladder Wall: 0.36 cm CBD: 0.52 cm Right Kidney: 9.1 x 5.1 x 4.5 cm Pancreas: Duct measuring 4mm Liver: wnl Gallbladder: Multiple gallstones seen near neck. Wall appears thickened and irregular, however no va scularity Evidence for sonographic Rivera's sign: No CBD: wnl for age Right Kidney: wnl IMPRESSION: 1. Irregular thickened gallbladder wall. This can be completely evaluated with MRI abdomen with IV c ontrast. 2. Cholelithiasis.
[2022-12-11] MEDS: HYDROmorphone 0.5 MG/0.5 ML SYRINGE IVP PRN ×2 (01:30→17:58)
[2022-12-11] MEDS: CALCIUM CARBONATE 500 MG CHEWABLE PO SCH ×3 (07:24→16:45)
--- NOTE | 2022-12-11 08:19 | P.PN ---
Subjective Progress Note Date: 12/11/22 Principal diagnosis: Computed UTI with continued abdominal pain. This is a continue process on an 87-year-old white female who is new to my practice. Review of previous records she has shown that she has had cystic mass removed several years ago and had bowel perforation as a complication which was repaired. She comes in for this visit with complicated UTI with emphysematous cystitis but now has developed continued epigastric pain. Computed tomography scan did not show any new findings other than cholelithiasis which she is had in the remote past. Ultrasound does show irregular thickening. We will consult general surgery. I did explain to her given her overall health at this time including her complicated cystitis that it is somewhat risky but she's not eating properly because of the pain. Objective - Vital Signs Vital signs: Vital Signs Temp 98.7 F 12/11/22 07:48 Pulse 101 H 12/11/22 07:48 Resp 14 12/11/22 07:48 BP 151/95 12/11/22 07:48 Pulse Ox 94 L 12/11/22 07:48 FiO2 Intake & Output 12/10/22 12/11/22 12/11/22 18:59 06:59 18:59 Other: Voiding Method Toilet Toilet # Voids 3 3 # Bowel Movements 1 - Constitutional General appearance: Present: no acute distress, thin - EENT Eyes: Absent: abnormal pupil - Respiratory Respiratory: bilateral: diminished - Cardiovascular Rhythm: regular Heart sounds: normal: S1, S2 Abnormal Heart Sounds: Absent: S3 Gallop - Gastrointestinal General gastrointestinal: Present: tenderness Localized gastrointestinal: tender: epigastric periumbilical - Integumentary Integumentary: Absent: cellulitis - Labs CBC & Chem 7: 12/10/22 06:26 12/10/22 06:26 Labs: Abnormal Lab Results - Last 24 Hours (Table) 12/10/22 12/10/22 Range/Units 06:26 06:26 RBC 3.90 L (4.10-5.20) X 10*6/uL RDW 15.1 H (11.5-14.5) % MPV 8.3 L (9.5-12.2) FL BUN 5.1 L (9.0-27.0) mg/dL Creatinine 0.4 L (0.6-1.5) mg/dL Calcium 8.5 L (8.7-10.3) mg/dL Total Protein 4.9 L (6.2-8.2) d/dL Albumin 3.2 L (3.8-4.9) d/dL Assessment and Plan (1) Emphysematous cystitis Current Visit: Yes Status: Acute Code(s): N30.80 - OTHER CYSTITIS WITHOUT HEMATURIA SNOMED Code(s): 65359950 (2) Abdominal pain Current Visit: No Status: Acute Code(s): R10.9 - UNSPECIFIED ABDOMINAL PAIN SNOMED Code(s): 49502731 (3) Dehydration Current Visit: No Status: Acute Code(s): E86.0 - DEHYDRATION SNOMED Code(s): 63938502 (4) Nausea and vomiting Current Visit: No Status: Acute Code(s): R11.2 - NAUSEA WITH VOMITING, UNSPECIFIED SNOMED Code(s): 22559933 Plan: Continue current regimen of antibiotic treatment. We will go ahead and reconcile medications. The patient is otherwise DO NOT RESUSCITATE. Check CBC and CMP in a.m. Appreciate multiple consultants input. General surgery consultation today for thickened gallbladder with cholelithiasis. Poor nutrition-Megace started.
[2022-12-11] MEDS: GABAPENTIN 300 MG CAP PO SCH ×3 (08:58→23:10)
[2022-12-11] MEDS: METOPROLOL SUCCINATE (ER) 50 MG TAB.ER.24H PO SCH (08:58)
[2022-12-11] MEDS: HYDROcodone/APAP 7.5-325MG 1 EACH TAB PO SCH ×3 (08:58→23:09)
[2022-12-11] MEDS: LEVOTHYROXINE 50 MCG TAB PO SCH (08:59)
[2022-12-11] MEDS: lisinopriL 20 MG TAB PO SCH (08:59)
[2022-12-11] MEDS: PANTOPRAZOLE 40 MG TABLET PO SCH ×2 (08:59→16:45)
[2022-12-11] MEDS: MEGESTROL 400 MG/10 ML CUP PO SCH (08:59)
[2022-12-11] MEDS: SODIUM CHLORIDE 0.9% 1,000 ML IV SCH ×3 (09:12→23:11)
[2022-12-11 11:06] LABS: HCT 40.7 % (37.2-46.3); HGB 13.4 d/dL (12.0-15.0); MCH 31.2 pg (27.0-32.0); MCHC 32.9 d/dL (32.0-37.0); MCV 94.9 FL (80.0-97.0); Mean Platelet Volume 8.6 FL (9.5-12.2); NRBC Per 100 WBC 0 X 10*3/uL (0.00-0.01); Platelet Count 221 X 10*3/uL (140-440); RBC 4.29 X 10*6/uL (4.10-5.20); RDW 15.2 % (11.5-14.5); WBC 9.63 X 10*3/uL (4.50-10.00)
[2022-12-11 11:22] LABS: ALT 11 U/L (8-44); AST 20 U/L (13-35); Albumin 3.3 d/dL (3.8-4.9); Albumin/Globulin Ratio 1.65 Ratio (1.60-3.17); Alkaline Phosphatase 80 U/L (41-126); Blood Urea Nitrogen 6.7 mg/dL (9.0-27.0); Calcium 8.7 mg/dL (8.7-10.3); Carbon Dioxide 24.4 mmol/L (21.6-31.8); Chloride 100 mmol/L (96-109); Glucose 101 mg/dL (70-110); Potassium 3.7 mmol/L (3.5-5.5); Sodium 136 mmol/L (135-145); Total Bilirubin 0.8 mg/dL (0.3-1.2); Total Protein 5.3 d/dL (6.2-8.2)
--- NOTE | 2022-12-11 12:18 | P.GSCN ---
History of Present Illness Consult date: 12/11/22 History of present illness: CHIEF COMPLAINT: Weakness HISTORY OF PRESENT ILLNESS: This 87-year-old female who presented with weakness, fatigue and urinary symptoms. Patient was found have evidence of UTI. Computed tomography scan of the abdomen had shown multiple diverticula within the wall of the urinary bladder compatible with emphysematous cystitis. Patient is on antibiotics. She was seen by urology service. Patient has had repeat CT scans which also showed evidence of distended gallbladder with gallstones. Patient had ultrasound of the abdomen which showed irregular thickening gallbladder wall with gallstones. Patient does have right upper quadrant abdominal pain on exam. Patient is a poor historian. When you ask where her pain is she points the left side of the abdomen. But on exam she is tender in the right upper quadrant. She reports having nausea and episodes of vomiting and has had this pain for one week. Nursing staff has reported no vomiting. [facility] pa rohan had ERCP with stent placement and iatrogenic gastric perforation. On April 08 patient had a diagnostic laparoscopy and oversew gastric perforation. Patient still has stent noted in the common bile duct on CAT scan. Surgical service has been consulted in regards to cholelithiasis. PAST MEDICAL HISTORY: See list. PAST SURGICAL HISTORY: See list. MEDICATIONS: See list. ALLERGIES: See list. SOCIAL HISTORY: No illicit drug use. REVIEW OF SYSTEMS: CONSTITUTIONAL: Denies fever or chills. HEENT: Denies blurred vision, vision changes, or eye pain. Denies hemoptysis ENDOCRINE: Denies heat or cold intolerance. CARDIOVASCULAR: Denies chest pain or pressure. RESPIRATORY: No shortness of breath. GASTROINTESTINAL: Denies abdominal pain. Denies nausea or vomiting. NEURO: Denies history of seizures. PSYCH: No depression or suicidal ideation HEMATOLOGIC: Denies bleeding disorders. LYMPHATIC: The patient denies any lumps and bumps around the neck. GENITOURINARY: Denies any blood in urine or increased urinary frequency. MUSCULOSKELETAL: Denies myalgias. Denies joint swelling. Denies decreased range of motion beyond patients baseline. SKIN: Denies pruitis. Denies rash. PHYSICAL EXAM: VITAL SIGNS: Reviewed GENERAL: Well-developed in no acute distress. HEENT: No sclera icterus. Extraocular movements grossly intact. Moist buccal mucosa. Head is atraumatic, normocephalic. Hears conversational speech. No nasal drainage. NECK: Supple without lymphadenopathy. CHEST: Non-labored respirations and equal bilateral excursions. CARDIOVASCULAR: Palpable 2+ radial pulses. ABDOMEN: Soft. Nondistended. Tenderness with palpation in the right upper quadrant. MUSCULOSKELETAL: No clubbing or cyanosis. NEUROLOGIC: No focal or lateralizing signs. Cranial nerves II through XII grossly intact. PSYCH: Pleasantly confused SKIN: Well perfused. Good skin turgor. LABORATORY DATA: WBC 9.63 hgb 13.4 platelets 221 Sodium 136 potassium 3.7 creatinine 0.5 Total bilirubin 0.8 AST 20 ALT 11 alk phos 80 Lipase 417 down to 30 IMAGING: Computed tomography scan abdomen and pelvis on 12/09/2022 reports redemonstration of large thin-walled cystic pelvic mass favored to represent the urinary bladder with multiple diverticulum containing layering contrast. Decreased emphysematous gas within the urinary bladder wall from prior exam. Chronic diverticulitis without evidence of acute diverticulitis. Moderate to large hiatal hernia redemonstrated. Similar distended gallbladder with gallstones identified. Similar intra-and extra biliary ductal dilatation with common bile duct stent identified. Abdominal ultrasound irregular thickened gallbladder wall. Cholelithiasis. Computed tomography scan abdomen and pelvis from 12/05/2022 contrast is noted within the large thin-walled cystic mass within the pelvis confirming that it structure reflexive urinary bladder with multiple diverticula. Air within the wall of the urinary bladder compatible with emphysematous cystitis. ASSESSMENT: 1. Right upper quadrant Abdominal pain with abdominal ultrasound showing irregular thickened gallbladder wall and cholelithiasis. 2. History of choledocholithiasis with ERCP and stent and subsequent gastric perforation with oversew at [facility] in March 2021 3. Emphysematous cystitis 4. Urinary bladder with multiple diverticulum PLAN: -Recommend that patient be transferred to [facility]. No GI service available this week and patient had prior surgery completed at [facility] -Add low fat diet -Continue antibiotics Thank you for this consultation Physician Call Center Consultant note has been reviewed by physician. Signing provider agrees with the documented findings, assessment, and plan of care. Past Medical History Past Medical History: Asthma, Fibromyalgia, Hypertension, Osteoarthritis (OA), Thyroid Disorder Additional Past Medical History / Comment(s): Neuropathy History of Any Multi-Drug Resistant Organisms: None Reported Past Surgical History: Appendectomy, Joint Replacement Additional Past Surgical History / Comment(s): RIGHT KNEE Past Anesthesia/Blood Transfusion Reactions: No Reported Reaction Past Psychological History: Depression Smoking Status: Former smoker Past Alcohol Use History: None Reported Additional Past Alcohol Use History / Comment(s): states "smoked many years ago" Past Drug Use History: None Reported - Past Family History Father Family Medical History: Cancer Medications and Allergies Home Medications Medication Instructions Recorded Confirmed Type Levothyroxine Sodium [Synthroid] 50 mcg PO DAILY 05/13/14 12/05/22 History HYDROcodone/APAP 7.5-325MG [[place] 1 tab PO TID 06/20/16 12/05/22 History 7.5-325] Gabapentin 600 mg PO TID 10/01/20 12/05/22 History Pantoprazole Sodium [Protonix] 40 mg PO BID 10/01/20 12/05/22 History lisinopriL [Zestril] 20 mg PO DAILY 10/01/20 12/05/22 History Metoprolol Succinate (ER) [Toprol 25 mg PO DAILY 12/05/22 12/05/22 History Xl] Ciprofloxacin HCl [Cipro] 500 mg PO BID 14 Days #28 tab 12/10/22 Rx Allergies Allergy/AdvReac Type Severity Reaction Status Date / Time No Known Allergies Allergy Verified 12/05/22 14:20 Surgical - Exam Vital Signs Temp Pulse Resp BP Pulse Ox 97.4 F L 63 18 150/79 99 12/05/22 13:38 12/05/22 13:38 12/05/22 13:38 12/05/22 13:38 12/05/22 13:38 Results - Labs 12/11/22 07:30 12/11/22 07:30 Abnormal Lab Results - Last 24 Hours (Table) 12/11/22 12/11/22 Range/Units 07:30 07:30 RDW 15.2 H (11.5-14.5) % MPV 8.6 L (9.5-12.2) FL BUN 6.7 L (9.0-27.0) mg/dL Creatinine 0.5 L (0.6-1.5) mg/dL Total Protein 5.3 L (6.2-8.2) d/dL Albumin 3.3 L (3.8-4.9) d/dL Diabetes panel 12/11/22 Range/Units 07:30 Sodium 136 (135-145) mmol/L Potassium 3.7 (3.5-5.5) mmol/L Chloride 100 (96-109) mmol/L Carbon Dioxide 24.4 (21.6-31.8) mmol/L BUN 6.7 L (9.0-27.0) mg/dL Creatinine 0.5 L (0.6-1.5) mg/dL Glucose 101 (70-110) mg/dL Calcium 8.7 (8.7-10.3) mg/dL AST 20 (13-35) U/L ALT 11 (8-44) U/L Alkaline Phosphatase 80 (41-126) U/L Total Protein 5.3 L (6.2-8.2) d/dL Albumin 3.3 L (3.8-4.9) d/dL Calcium panel 12/11/22 Range/Units 07:30 Calcium 8.7 (8.7-10.3) mg/dL Albumin 3.3 L (3.8-4.9) d/dL Pituitary panel 12/11/22 Range/Units 07:30 Sodium 136 (135-145) mmol/L Potassium 3.7 (3.5-5.5) mmol/L Chloride 100 (96-109) mmol/L Carbon Dioxide 24.4 (21.6-31.8) mmol/L BUN 6.7 L (9.0-27.0) mg/dL Creatinine 0.5 L (0.6-1.5) mg/dL Glucose 101 (70-110) mg/dL Calcium 8.7 (8.7-10.3) mg/dL Adrenal panel 12/11/22 Range/Units 07:30 Sodium 136 (135-145) mmol/L Potassium 3.7 (3.5-5.5) mmol/L Chloride 100 (96-109) mmol/L Carbon Dioxide 24.4 (21.6-31.8) mmol/L BUN 6.7 L (9.0-27.0) mg/dL Creatinine 0.5 L (0.6-1.5) mg/dL Glucose 101 (70-110) mg/dL Calcium 8.7 (8.7-10.3) mg/dL Total Bilirubin 0.8 (0.3-1.2) mg/dL AST 20 (13-35) U/L ALT 11 (8-44) U/L Alkaline Phosphatase 80 (41-126) U/L Total Protein 5.3 L (6.2-8.2) d/dL Albumin 3.3 L (3.8-4.9) d/dL
--- NOTE | 2022-12-11 15:07 | CDI ---
Documentation Clarification Form Date: 12/11/2022 02:40:16 PM From: Oxana Garcia RN CCDS Phone: [phone] Admit Date: 12/06/2022 01:11:00 PM Patient Name: Wandy Orta Visit Number: [id number] Discharge Date: ATTENTION: The Clinical Documentation Specialists (CDI) and [facility] [facility] [facility] Coding Staff appreciate your assistance in clarifying documentation. Please respond to the clarification below the line at the bottom and electronically sign. The CDI & [facility] [employer] [facility] Coding staff will review the response and follow-up if needed. Please note: Queries are made part of the Legal Health Record. If you have any questions, please contact the author of this message via ITS. Dr. Jayy Tinsley Poor nutrition is documented in the medicine note, 12/11/2022. Based on this information and the findings below, is there an additional diagnosis that is clinically appropriate for this patient? History/Risk Factors: 87-year-old female presents with abdominal pain. Medical History: emphysematous cystitis, choledocholithiasis with ERCP and stent and HTN. 12/06, H&P Clinical Indicators: Dietary Consult: Diet history: difficulty chewing / swallowing food sometimes gets stuck. Current BMI: 14.6kg; Hgt 4ft 10in; Wgt 31.751kg stated by patient. Calculated ideal Body wgt: 43 kg. Patient reports some weight change for two weeks, unsure of how much. Nutrition assessment: Intake poor, 0-25% consumed. Patient refusing most meals having some magic cups. Not eating because of abdominal pain. She has had a poor PO >14 days prior to admit. [Cite applicable ASPEN criteria listed below] Treatment: Megace, Dietary consult (see above), Monitor po and supplement intake. Supplements: Magic cup TID Is there an additional diagnosis that is clinically appropriate for this patient? [ ] Moderate Protein-Calorie Malnutrition [x ] Severe Protein-Calorie Malnutrition [ ] No additional diagnosis/Not clinically significant [ ] Other condition, please specify [ ] Unable to Determine Malnutrition Characteristics for Moderate and Severe Malnutrition Type of Malnutrition Acute Illness or Injury Chronic Illness Degree of Malnutrition Non-severe (moderate) Malnutrition Severe Malnutrition Non-severe (moderate) Malnutrition Severe Malnutrition Energy Intake <75% for >7 days = 50% for = 5 days <75% for = 1 month =75% for = 1 month Weight Loss 1-2% in one week, 5% in 1 month, 7.5% in 3 months 2% in one week, >5% in 1 month, >7.5% in 3 months 5% in one month, 7.5% in 3 months, 10% in 6 months, 20% in 1 year >5% in one month, >7.5% in 3 months, >10% in 6 months, >20% in 1 year Body Fat Wasting Mild Moderate Mild Severe Muscle Wasting Mild Moderate Mild Severe Presence of Edema Mild Moderate to Severe Mild Severe Conveyor Technician Strength Not applicable Measurably Reduced Not applicable Measurably Reduced Source: Dottie CarsonV, Martin P, Taylor G, et al. Consensus statement: Academy of Nutrition and Dietetics and [place] Society for Parenteral and Enteral Nutrition: characteristics recommended for the identification and documentation of adult malnutrition (undernutrition).EDGAR J Parenter Enteral Nutr. 2012;36(3):275-283. (Template Last Revised: August 2022) MTDD
[2022-12-12 08:31] LABS: HCT 40.2 % (34.0-46.0); HGB 12.8 gm/dL (11.4-16.0); MCH 31.2 pg (25.0-35.0); MCHC 31.8 g/dL (31.0-37.0); MCV 98.1 fL (80.0-100.0); Macrocytosis Slight; Mean Platelet Volume 7.9; Platelet Count 178 k/uL (150-450); RDW 15.5 % (11.5-15.5); WBC 7.8 k/uL (3.8-10.6)
[2022-12-12] MEDS: CALCIUM CARBONATE 500 MG CHEWABLE PO SCH ×3 (08:34→16:50)
[2022-12-12] MEDS: GABAPENTIN 300 MG CAP PO SCH ×3 (08:34→21:48)
[2022-12-12] MEDS: PANTOPRAZOLE 40 MG TABLET PO SCH ×2 (08:35→16:50)
[2022-12-12] MEDS: LEVOTHYROXINE 50 MCG TAB PO SCH (08:35)
[2022-12-12] MEDS: HYDROcodone/APAP 7.5-325MG 1 EACH TAB PO SCH ×3 (08:36→21:48)
[2022-12-12] MEDS: MEGESTROL 400 MG/10 ML CUP PO SCH (08:36)
[2022-12-12] MEDS: METOPROLOL SUCCINATE (ER) 50 MG TAB.ER.24H PO SCH (08:36)
[2022-12-12] MEDS: lisinopriL 20 MG TAB PO SCH (08:36)
[2022-12-12] MEDS: SODIUM CHLORIDE 0.9% 1,000 ML IV SCH (08:38)
--- NOTE | 2022-12-12 08:50 | P.DS ---
Providers Date of admission: 12/06/22 13:11 Attending physician: Jayy Tinsley Consults: 12/05/22 18:57 Consult Physician Urgent Consulting Provider: Aric Luna Consult Reason/Comments: Emphasematous cystitis hx of adjecent cyst Do you want consulting provider notified?: Yes Consult Physician Urgent Consulting Provider: Nando Mayen Consult Reason/Comments: emphasematous cystitis Do you want consulting provider notified?: Yes 12/09/22 16:27 Consult Physician Routine Consulting Provider: Coral Paz Consult Reason/Comments: abdominal pain. Do you want consulting provider notified?: Yes 12/11/22 08:11 Consult Physician Routine Consulting Provider: Miriam Degroot Consult Reason/Comments: cholelithiasis Do you want consulting provider notified?: Yes Primary care physician: Jayy Tinsley - Discharge Diagnosis(es) (1) Emphysematous cystitis Current Visit: Yes Status: Acute (2) Abdominal pain Current Visit: No Status: Acute (3) Dehydration Current Visit: No Status: Acute (4) Nausea and vomiting Current Visit: No Status: Acute Hospital Course: This is an 87-year-old female with a known history of chronic pain secondary to fibromyalgia and arthritis. Patient presented to the emergency room with complaints of dysuria and fever, and was found to have cystitis and elements of severe UTI. Urine culture shows E. coli. Urology and infectious disease were consulted. Infectious disease is recommending Cipro for treatment of the cystitis. During this admission patient reports an increase in abdominal pain and she is not eating very much. Patient was seen and evaluated by dietitian during stay and they recommend adding Megace. Upon discussion with patient she had recent hospitalizations including [facility] and [facility] in the past. It was found patient had an ERCP in the past and may need another one. No GI is available this week. Surgeon was consulted and recommend transfer to [facility]. We'll transferred to [facility] when bed is available. Patient seen and evaluated by nurse practitioner, physician in agreement with plan Patient Condition at Discharge: Good Plan - Discharge Summary New Discharge Prescriptions: New Ciprofloxacin HCl [Cipro] 500 mg PO BID 14 Days #28 tab Megestrol [Megace] 400 mg PO DAILY ml Continue Levothyroxine Sodium [Synthroid] 50 mcg PO DAILY HYDROcodone/APAP 7.5-325MG [[place] 7.5-325] 1 tab PO TID lisinopriL [Zestril] 20 mg PO DAILY Metoprolol Succinate (ER) [Toprol XL] 25 mg PO DAILY Pantoprazole Sodium [Protonix] 40 mg PO BID Gabapentin 600 mg PO TID Discharge Medication List Levothyroxine Sodium [Synthroid] 50 mcg PO DAILY 05/13/14 [History] HYDROcodone/APAP 7.5-325MG [[place] 7.5-325] 1 tab PO TID 06/20/16 [History] Gabapentin 600 mg PO TID 10/01/20 [History] Pantoprazole Sodium [Protonix] 40 mg PO BID 10/01/20 [History] lisinopriL [Zestril] 20 mg PO DAILY 10/01/20 [History] Metoprolol Succinate (ER) [Toprol XL] 25 mg PO DAILY 12/05/22 [History] Ciprofloxacin HCl [Cipro] 500 mg PO BID 14 Days #28 tab 12/10/22 [Rx] Megestrol [Megace] 400 mg PO DAILY ml 12/12/22 [Rx] Follow up Appointment(s)/Referral(s): [facility] [facility] [NON-STAFF] - As Needed Aric Luna MD [STAFF PHYSICIAN] - 4 Weeks Jayy Tinsley MD [Primary Care Provider] - 1-2 days Nando Mayen MD [STAFF PHYSICIAN] - 1 Week [facility], [NON-STAFF] - 1-2 Days ([facility] will call you to schedule your in home nursing visits. ) Discharge Disposition: OTHER INSTITUTION NOT DEFINED
[2022-12-12 09:34] LABS: ALT 14 U/L (4-34); AST 25 U/L (14-36); African American GFR (CKD) >90 (>60 ml/min/1.73 sqM); Albumin 2.8 g/dL (3.5-5.0); Albumin/Globulin Ratio 1.2; Alkaline Phosphatase 79 U/L (38-126); Anion Gap 10 mmol/L; Blood Urea Nitrogen 16 mg/dL (7-17); Calcium 8.4 mg/dL (8.4-10.2); Carbon Dioxide 24 mmol/L (22-30); Chloride 100 mmol/L (98-107); Globulin 2.4 g/dL; Glucose 73 mg/dL (74-99); Non-African American GFR(CKD) 88 (>60 ml/min/1.73 sqM); Sodium 134 mmol/L (137-145); Total Bilirubin 0.8 mg/dL (0.2-1.3); Total Protein 5.2 g/dL (6.3-8.2)
--- NOTE | 2022-12-12 12:44 | P.PN ---
Subjective Progress Note Date: 12/12/22 CHIEF COMPLAINT: abdominal pain HISTORY OF PRESENT ILLNESS: Patient continues to have right upper quadrant abdominal pain. Denies any nausea or vomiting. She is being transferred. She is awaiting bed placement. Afebrile. WBC 7.8 LFTs normal PHYSICAL EXAM: VITAL SIGNS: Reviewed GENERAL: Well-developed in no acute distress. HEENT: No sclera icterus. Extraocular movements grossly intact. Moist buccal mucosa. Head is atraumatic, normocephalic. Hears conversational speech. No nasal drainage. NECK: Supple without lymphadenopathy. CHEST: Non-labored respirations and equal bilateral excursions. CARDIOVASCULAR: Palpable 2+ radial pulses. ABDOMEN: Soft. Nondistended. tenders palpation right upper quadrant and epigastric area MUSCULOSKELETAL: No clubbing or cyanosis. NEUROLOGIC: No focal or lateralizing signs. Cranial nerves II through XII grossly intact. PSYCH: Pleasantly confused SKIN: Well perfused. Good skin turgor. ASSESSMENT: 1. Right upper quadrant Abdominal pain with abdominal ultrasound showing irregular thickened gallbladder wall and cholelithiasis. 2. History of choledocholithiasis with ERCP and stent and subsequent gastric perforation with oversew at [facility] in March 2021 3. Emphysematous cystitis 4. Urinary bladder with multiple diverticulum PLAN: -Recommend that patient be transferred. No GI service available this week and patient had prior procedure and surgery completed at [facility] -Continue antibiotics Physician Data Support Analyst note has been reviewed by physician. Signing provider agrees with the documented findings, assessment, and plan of care. Objective - Vital Signs Vital signs: Vital Signs Temp 99.2 F 12/12/22 07:08 Pulse 84 12/12/22 07:08 Resp 16 12/12/22 07:08 BP 135/84 12/12/22 07:08 Pulse Ox 94 L 12/12/22 07:08 FiO2 Intake & Output 12/11/22 12/12/22 12/12/22 18:59 06:59 18:59 Output Total 500 Balance -500 Output: Urine 500 Other: Voiding Method Toilet Toilet # Voids 3 # Bowel Movements 1 - Labs CBC & Chem 7: 12/12/22 07:14 12/12/22 07:14 Labs: Abnormal Lab Results - Last 24 Hours (Table) 12/12/22 Range/Units 07:14 Sodium 134 L (137-145) mmol/L Creatinine 0.51 L (0.52-1.04) mg/dL Glucose 73 L (74-99) mg/dL Total Protein 5.2 L (6.3-8.2) g/dL Albumin 2.8 L (3.5-5.0) g/dL
--- NOTE | 2022-12-12 20:51 | P.PN ---
Subjective Progress Note Date: 12/11/22 Principal diagnosis: emphysematous cystiti Patient is a 87-year-old female with a past medical history significant for hypertension hypothyroidism fibromyalgia asthma presenting to the hospital for evaluation of fatigue myalgias urinary frequency intermittent dysuria and also having some blood in the urine, patient did have a CT with evidence of emphysematous cystitis on Todays evaluation that is 12/11/2022, the patient denies any fever and chills, the patient is breathing comfortably on room air and denies any shortness of breath, the patient denies having any chest pain or cough, patient Abdominal pain has improved and denies nausea/vomiting /diarrhea Patient did have white count of 9.63, creatinine 0.5, Urine cultures grew E. coli that is a sensitive pathogen, patient did have a CT abdominal pelvis completed 12/06/2021 shows improvement in the emphysematous cystitis did shows evidence of gallstones Objective - Vital Signs Vital signs: Vital Signs Temp 98.7 F 12/11/22 07:48 Pulse 101 H 12/11/22 07:48 Resp 14 12/11/22 07:48 BP 151/95 12/11/22 07:48 Pulse Ox 94 L 12/11/22 07:48 FiO2 Intake & Output 12/10/22 12/11/22 12/11/22 18:59 06:59 18:59 Other: Voiding Method Toilet Toilet Toilet # Voids 3 3 # Bowel Movements 1 - Exam GENERAL DESCRIPTION: An elderly female lying in bed in no distress RESPIRATORY SYSTEM: Unlabored breathing , decreased breath sounds at bases HEART: S1 S2 regular rate and rhythm , ABDOMEN: Soft , no tenderness EXTREMITIES: No edema feet - Labs CBC & Chem 7: 12/12/22 07:14 12/12/22 07:14 Assessment and Plan (1) Emphysematous cystitis Current Visit: Yes Status: Acute Code(s): N30.80 - OTHER CYSTITIS WITHOUT HEMATURIA SNOMED Code(s): 92784214 Plan: 1patient presented to hospital with generalized weakness body aches patient did have urinary frequency dysuria and hematuria with significant abnormality of the bladder on the CT suspicious for emphysematous cystitis likely from enteric gram-negative pathogen, culture did grow E. coli that is a sensitive pathogen 2-patient has been combining of pain in the right upper quadrant epigastric area. ultrasound cannot r/o cholecystitis , Radiologist recommending MRI , surgery consulted 3-patient to continue with Rocephin 2 g daily and monitor clinical course closely Dictation was produced using [id number] dictation software. please excuse any grammatical, word or spelling errors. Time with Patient: Less than 30
--- NOTE | 2022-12-12 20:53 | P.PN ---
Subjective Progress Note Date: 12/12/22 Principal diagnosis: emphysematous cystiti Patient is a 87-year-old female with a past medical history significant for hypertension hypothyroidism fibromyalgia asthma presenting to the hospital for evaluation of fatigue myalgias urinary frequency intermittent dysuria and also having some blood in the urine, patient did have a CT with evidence of emphysematous cystitis on Todays evaluation that is 12/12/2022, the patient continues to be afebrile, the patient is breathing comfortably on room air, the patient denies any chest pain or cough, patient abdominal pain has improved and denies any nausea/vomiting or diarrhea Patient did have white count of 7.8, creatinine 0.51, Urine cultures grew E. coli that is a sensitive pathogen, patient did have a CT abdominal pelvis completed 12/06/2021 shows improvement in the emphysematous cystitis did shows evidence of gallstones Objective - Vital Signs Vital signs: Vital Signs Temp 99.2 F 12/12/22 07:08 Pulse 84 12/12/22 07:08 Resp 16 12/12/22 07:08 BP 135/84 12/12/22 07:08 Pulse Ox 94 L 12/12/22 07:08 FiO2 Intake & Output 12/11/22 12/12/22 12/12/22 18:59 06:59 18:59 Output Total 500 Balance -500 Output: Urine 500 Other: Voiding Method Toilet Toilet # Voids 3 # Bowel Movements 1 - Exam GENERAL DESCRIPTION: An elderly female lying in bed in no distress RESPIRATORY SYSTEM: Unlabored breathing , decreased breath sounds at bases HEART: S1 S2 regular rate and rhythm , ABDOMEN: Soft , no tenderness EXTREMITIES: No edema feet - Labs CBC & Chem 7: 12/12/22 07:14 12/12/22 07:14 Labs: Abnormal Lab Results - Last 24 Hours (Table) 12/12/22 Range/Units 07:14 Sodium 134 L (137-145) mmol/L Creatinine 0.51 L (0.52-1.04) mg/dL Glucose 73 L (74-99) mg/dL Total Protein 5.2 L (6.3-8.2) g/dL Albumin 2.8 L (3.5-5.0) g/dL Assessment and Plan (1) Emphysematous cystitis Current Visit: Yes Status: Acute Code(s): N30.80 - OTHER CYSTITIS WITHOUT HEMATURIA SNOMED Code(s): 96023862 Plan: 1patient presented to hospital with generalized weakness body aches patient did have urinary frequency dysuria and hematuria with significant abnormality of the bladder on the CT suspicious for emphysematous cystitis likely from enteric gram-negative pathogen, culture did grow E. coli that is a sensitive pathogen 2-patient has been combining of pain in the right upper quadrant epigastric area. ultrasound cannot r/o cholecystitis , Radiologist recommending MRI , surgery consulted--[facility]commending [facility] 3-patient to continue with Rocephin 2 g daily and finishing therapy with cipro- scripts sent Dictation was produced using [employer] dictation software. please excuse any grammatical, word or spelling errors. Time with Patient: Less than 30
[2022-12-13] MEDS: SODIUM CHLORIDE 0.9% 1,000 ML IV SCH ×2 (01:36→14:02)
[2022-12-13] MEDS: PANTOPRAZOLE 40 MG TABLET PO SCH ×2 (07:05→17:09)
[2022-12-13] MEDS: LEVOTHYROXINE 50 MCG TAB PO SCH (07:05)
[2022-12-13] MEDS: CALCIUM CARBONATE 500 MG CHEWABLE PO SCH ×3 (07:05→16:14)
[2022-12-13] MEDS: MEGESTROL 400 MG/10 ML CUP PO SCH (07:45)
[2022-12-13] MEDS: METOPROLOL SUCCINATE (ER) 50 MG TAB.ER.24H PO SCH (07:45)
[2022-12-13] MEDS: HYDROcodone/APAP 7.5-325MG 1 EACH TAB PO SCH ×3 (07:45→22:29)
[2022-12-13] MEDS: GABAPENTIN 300 MG CAP PO SCH ×3 (07:45→22:29)
[2022-12-13] MEDS: lisinopriL 20 MG TAB PO SCH (07:45)
--- NOTE | 2022-12-13 08:23 | P.PN ---
Subjective Principal diagnosis: Thickening gallbladder with abdominal pain. We are essentially awaiting transfer due to lack of GI service. She's had previous ERCP in the past. Abdominal pain is improving. No fever but still poor by mouth intake. Objective - Vital Signs Vital signs: Vital Signs Temp 97.5 F L 12/13/22 06:59 Pulse 76 12/13/22 06:59 Resp 16 12/13/22 06:59 BP 148/89 12/13/22 06:59 Pulse Ox 97 12/13/22 06:59 FiO2 Intake & Output 12/12/22 12/13/22 12/13/22 18:59 06:59 18:59 Weight 31.751 kg Other: Voiding Method Toilet # Voids 3 2 # Bowel Movements 1 - Constitutional General appearance: Present: cooperative, thin - EENT Eyes: Absent: abnormal pupil - Neck Neck: Absent: lymphadenopathy - Respiratory Respiratory: bilateral: diminished - Cardiovascular Rhythm: regular Heart sounds: normal: S1, S2 Abnormal Heart Sounds: Absent: S3 Gallop - Gastrointestinal General gastrointestinal: Present: soft, tenderness Localized gastrointestinal: tender: epigastric periumbilical - Integumentary Integumentary: Absent: cellulitis - Psychiatric Psychiatric: Present: appropriate affect - Labs CBC & Chem 7: 12/12/22 07:14 12/12/22 07:14 Labs: Abnormal Lab Results - Last 24 Hours (Table) 12/12/22 Range/Units 07:14 Sodium 134 L (137-145) mmol/L Creatinine 0.51 L (0.52-1.04) mg/dL Glucose 73 L (74-99) mg/dL Total Protein 5.2 L (6.3-8.2) g/dL Albumin 2.8 L (3.5-5.0) g/dL Assessment and Plan (1) Emphysematous cystitis Current Visit: Yes Status: Acute Code(s): N30.80 - OTHER CYSTITIS WITHOUT HEMATURIA SNOMED Code(s): 08151828 (2) Abdominal pain Current Visit: No Status: Acute Code(s): R10.9 - UNSPECIFIED ABDOMINAL PAIN SNOMED Code(s): 22936315 (3) Dehydration Current Visit: No Status: Acute Code(s): E86.0 - DEHYDRATION SNOMED Code(s): 00105818 (4) Nausea and vomiting Current Visit: No Status: Acute Code(s): R11.2 - NAUSEA WITH VOMITING, UNSPECIFIED SNOMED Code(s): 37254886 Plan: Essentially awaiting transfer to [facility]. Continue current regimen of treatment. See orders otherwise.
--- NOTE | 2022-12-13 09:11 | P.PN ---
Subjective Progress Note Date: 12/13/22 CHIEF COMPLAINT: abdominal pain HISTORY OF PRESENT ILLNESS: Patient continues to have right upper quadrant abdominal pain. Denies any nausea or vomiting. She is awaiting bed for transfer. Afebrile. WBC 7.8 LFTs normal PHYSICAL EXAM: VITAL SIGNS: Reviewed GENERAL: Well-developed in no acute distress. HEENT: No sclera icterus. Extraocular movements grossly intact. Moist buccal mucosa. Head is atraumatic, normocephalic. Hears conversational speech. No nasal drainage. NECK: Supple without lymphadenopathy. CHEST: Non-labored respirations and equal bilateral excursions. CARDIOVASCULAR: Palpable 2+ radial pulses. ABDOMEN: Soft. Nondistended. tenders palpation right upper quadrant MUSCULOSKELETAL: No clubbing or cyanosis. NEUROLOGIC: No focal or lateralizing signs. Cranial nerves II through XII grossly intact. PSYCH: Pleasantly confused SKIN: Well perfused. Good skin turgor. ASSESSMENT: 1. Right upper quadrant Abdominal pain with abdominal ultrasound showing irregular thickened gallbladder wall and cholelithiasis. 2. History of choledocholithiasis with ERCP and stent and subsequent gastric perforation with oversew at [facility] in March 2021 3. Emphysematous cystitis 4. Urinary bladder with multiple diverticulum PLAN: -Awaiting transfer. No GI service available this week and patient had ERCP with stent and prior surgery completed at [facility] -Continue antibiotics -Continue supportive care Physician Disassembler note has been reviewed by physician. Signing provider agrees with the documented findings, assessment, and plan of care. Objective - Vital Signs Vital signs: Vital Signs Temp 97.5 F L 12/13/22 06:59 Pulse 76 12/13/22 06:59 Resp 16 12/13/22 06:59 BP 148/89 12/13/22 06:59 Pulse Ox 97 12/13/22 06:59 FiO2 Intake & Output 12/12/22 12/13/22 12/13/22 18:59 06:59 18:59 Weight 31.751 kg Other: Voiding Method Toilet # Voids 3 2 # Bowel Movements 1 - Labs CBC & Chem 7: 12/12/22 07:14 12/12/22 07:14 Labs: Abnormal Lab Results - Last 24 Hours (Table) 12/12/22 Range/Units 07:14 Sodium 134 L (137-145) mmol/L Creatinine 0.51 L (0.52-1.04) mg/dL Glucose 73 L (74-99) mg/dL Total Protein 5.2 L (6.3-8.2) g/dL Albumin 2.8 L (3.5-5.0) g/dL
--- NOTE | 2022-12-13 15:05 | P.PN ---
Subjective Progress Note Date: 12/13/22 Principal diagnosis: emphysematous cystiti Patient is a 87-year-old female with a past medical history significant for hypertension hypothyroidism fibromyalgia asthma presenting to the hospital for evaluation of fatigue myalgias urinary frequency intermittent dysuria and also having some blood in the urine, patient did have a CT with evidence of emphysematous cystitis on Todays evaluation that is 12/13/2022, the patient denies any fever or any chills, the patient is breathing comfortably on room air and no need for supplemental oxygen, the patient denies any chest pain or cough, patient denies any nausea/vomiting or diarrhea and no abdominal pain Patient did have white count of 7.8, creatinine 0.51 as of yesterday no lab draw today, Urine cultures grew E. coli that is a sensitive pathogen, patient did have a CT abdominal pelvis completed 12/06/2021 shows improvement in the emphysematous cystitis did shows evidence of gallstones Objective - Vital Signs Vital signs: Vital Signs Temp 97.5 F L 12/13/22 06:59 Pulse 76 12/13/22 06:59 Resp 16 12/13/22 06:59 BP 148/89 12/13/22 06:59 Pulse Ox 97 12/13/22 06:59 FiO2 Intake & Output 12/12/22 12/13/22 12/13/22 18:59 06:59 18:59 Weight 31.751 kg Other: Voiding Method Toilet # Voids 3 2 # Bowel Movements 1 - Exam GENERAL DESCRIPTION: An elderly female lying in bed in no distress RESPIRATORY SYSTEM: Unlabored breathing , decreased breath sounds at bases HEART: S1 S2 regular rate and rhythm , ABDOMEN: Soft , no tenderness EXTREMITIES: No edema feet - Labs CBC & Chem 7: 12/12/22 07:14 12/12/22 07:14 Assessment and Plan (1) Emphysematous cystitis Current Visit: Yes Status: Acute Code(s): N30.80 - OTHER CYSTITIS WITHOUT HEMATURIA SNOMED Code(s): 22775885 Plan: 1patient presented to hospital with generalized weakness body aches patient did have urinary frequency dysuria and hematuria with significant abnormality of the bladder on the CT suspicious for emphysematous cystitis likely from enteric gram-negative pathogen, culture did grow E. coli that is a sensitive pathogen 2-patient has been combining of pain in the right upper quadrant epigastric area. ultrasound cannot r/o cholecystitis , Radiologist recommending MRI , surgery consulted--Recommending transfer to [facility] 3-patient to continue with Rocephin 2 g daily and currently waiting for transfer to [facility] for gallbladder surgery Dictation was produced using [employer] dictation software. please excuse any grammatical, word or spelling errors. Time with Patient: Less than 30
[2022-12-14] MEDS: SODIUM CHLORIDE 0.9% 1,000 ML IV SCH ×2 (03:55→18:18)
[2022-12-14] MEDS: CALCIUM CARBONATE 500 MG CHEWABLE PO SCH ×3 (06:51→18:18)
[2022-12-14] MEDS: LEVOTHYROXINE 50 MCG TAB PO SCH (06:55)
[2022-12-14] MEDS: PANTOPRAZOLE 40 MG TABLET PO SCH ×2 (06:55→16:18)
[2022-12-14] MEDS: lisinopriL 20 MG TAB PO SCH (08:43)
[2022-12-14] MEDS: HYDROcodone/APAP 7.5-325MG 1 EACH TAB PO SCH ×3 (08:43→22:11)
[2022-12-14] MEDS: GABAPENTIN 300 MG CAP PO SCH ×4 (08:43→22:34)
[2022-12-14] MEDS: MEGESTROL 400 MG/10 ML CUP PO SCH (08:43)
[2022-12-14] MEDS: METOPROLOL SUCCINATE (ER) 50 MG TAB.ER.24H PO SCH (08:44)
[2022-12-14 10:12] LABS: ALT 36 U/L (8-44); AST 54 U/L (13-35); Albumin 2.6 d/dL (3.8-4.9); Albumin/Globulin Ratio 1.44 Ratio (1.60-3.17); Alkaline Phosphatase 63 U/L (41-126); Blood Urea Nitrogen 12.9 mg/dL (9.0-27.0); Calcium 8.2 mg/dL (8.7-10.3); Carbon Dioxide 27.6 mmol/L (21.6-31.8); Chloride 107 mmol/L (96-109); Globulin 1.8 d/dL (1.6-3.3); Glucose 98 mg/dL (70-110); Potassium 4.1 mmol/L (3.5-5.5); Sodium 143 mmol/L (135-145); Total Bilirubin <0.2 mg/dL (0.3-1.2); Total Protein 4.4 d/dL (6.2-8.2)
[2022-12-14 10:18] LABS: HCT 33.6 % (37.2-46.3); HGB 10.6 d/dL (12.0-15.0); MCH 30.9 pg (27.0-32.0); MCHC 31.5 d/dL (32.0-37.0); Mean Platelet Volume 8.5 FL (9.5-12.2); NRBC Per 100 WBC 0 X 10*3/uL (0.00-0.01); Platelet Count 224 X 10*3/uL (140-440); RBC 3.43 X 10*6/uL (4.10-5.20); RDW 15.8 % (11.5-14.5); WBC 3.15 X 10*3/uL (4.50-10.00)
--- NOTE | 2022-12-14 12:12 | P.PN ---
Subjective This is a 87-year-old white female with known history of chronic pain elements secondary to fibromyalgia with osteoarthritis. 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 The patient had computed tomography scan which did show bladder polyp. Patient evaluated by ID team, urologist and general surgical team. CT of the abdomen and pelvis showing large thin-walled urinary bladder with multiple diverticuli and emphysematous wall. While abdominal ultrasound showed an irregular thickened gallbladder with cholelithiasis. Surgical team recommended a transferred patient to [facility] as she had ERCP before with stenting, no GI coverage for this facility This time patient lying in bed comfortable, reniform mild epigastric to right upper quadrant pain or tenderness She remains on IV ceftriaxone. No IV fluids CBC showing hemoglobin of 10.6 but with evidence of hemoglobin delusion Objective - Vital Signs Vital signs: Vital Signs Temp 98.0 F 12/14/22 07:55 Pulse 92 12/14/22 07:55 Resp 14 12/14/22 07:55 BP 137/92 12/14/22 07:55 Pulse Ox 96 12/14/22 07:55 FiO2 Intake & Output 12/13/22 12/14/22 12/14/22 18:59 06:59 18:59 Other: Voiding Method Toilet Toilet # Voids 1 0 # Bowel Movements 1 - Exam GENERAL: The patient is alert and oriented x3, not in any acute distress. Well developed, well nourished. HEENT: Pupils are round and equally reacting to light. EOMI. No scleral icterus. No conjunctival pallor. Normocephalic, atraumatic. No pharyngeal erythema. No thyromegaly. CARDIOVASCULAR: S1 and S2 present. No murmurs, rubs, or gallops. PULMONARY: Chest is clear to auscultation, no wheezing , no crackles. -ABDOMEN: Soft, mild RUQ tenderness, no guarding or rebound tenderness , nondistended, normoactive bowel sounds. No palpable organomegaly. MUSCULOSKELETAL: No joint swelling or deformity. EXTREMITIES: No cyanosis, clubbing, or pedal edema. NEUROLOGICAL: Gross neurological examination did not reveal any focal deficits. SKIN: No rashes. no petechiae. - Labs CBC & Chem 7: 12/14/22 04:40 12/14/22 04:40 Labs: Abnormal Lab Results - Last 24 Hours (Table) 12/14/22 12/14/22 Range/Units 04:40 04:40 WBC 3.15 L (4.50-10.00) X 10*3/uL RBC 3.43 L (4.10-5.20) X 10*6/uL Hgb 10.6 L (12.0-15.0) d/dL Hct 33.6 L (37.2-46.3) % MCV 98.0 H (80.0-97.0) FL MCHC 31.5 L (32.0-37.0) d/dL RDW 15.8 H (11.5-14.5) % MPV 8.5 L (9.5-12.2) FL Creatinine 0.5 L (0.6-1.5) mg/dL BUN/Creatinine Ratio 25.80 H (12.00-20.00) Ratio Calcium 8.2 L (8.7-10.3) mg/dL Total Bilirubin <0.2 L (0.3-1.2) mg/dL AST 54 H (13-35) U/L Total Protein 4.4 L (6.2-8.2) d/dL Albumin 2.6 L (3.8-4.9) d/dL Albumin/Globulin Ratio 1.44 L (1.60-3.17) Ratio Assessment and Plan Assessment: E coli urinary tract infection secondary to emphysematous cystitis Cholecystitis History with cholelithiasis status post ERCP and stent and subsequent gastric perforation done at [facility] and 03/2021 mild anemia Generalized weakness secondary to above Plan: Continue with ceftriaxone General surgery, infectious disease and neurology team on the case The plan is transfer the patient to [facility] for higher level of care Labs and medication were reviewed.. Continue same treatment. Continue with symptomatic treatment. Resume home medication. Monitor labs and vitals. DVT and GI prophylaxis. Further recommendations as per clinical course of the patient DVT prophylaxis: Subcutaneous heparin GI Prophylaxis: Pepcid Prognosis is guarded
--- NOTE | 2022-12-14 13:31 | P.PN ---
Subjective Progress Note Date: 12/14/22 Patient is still here pending bed at other facility. Discussed with patient that GI team will be available on Friday to discuss her case. If patient is still here AND GI team is agreeable for CBD stent management, recommend cholecystectomy while inpatient. Objective - Vital Signs Vital signs: Vital Signs Temp 98.0 F 12/14/22 07:55 Pulse 92 12/14/22 07:55 Resp 14 12/14/22 07:55 BP 137/92 12/14/22 07:55 Pulse Ox 96 12/14/22 07:55 FiO2 Intake & Output 12/13/22 12/14/22 12/14/22 18:59 06:59 18:59 Other: Voiding Method Toilet Toilet # Voids 1 0 # Bowel Movements 1 - Labs CBC & Chem 7: 12/14/22 04:40 12/14/22 04:40 Labs: Abnormal Lab Results - Last 24 Hours (Table) 12/14/22 12/14/22 Range/Units 04:40 04:40 WBC 3.15 L (4.50-10.00) X 10*3/uL RBC 3.43 L (4.10-5.20) X 10*6/uL Hgb 10.6 L (12.0-15.0) d/dL Hct 33.6 L (37.2-46.3) % MCV 98.0 H (80.0-97.0) FL MCHC 31.5 L (32.0-37.0) d/dL RDW 15.8 H (11.5-14.5) % MPV 8.5 L (9.5-12.2) FL Creatinine 0.5 L (0.6-1.5) mg/dL BUN/Creatinine Ratio 25.80 H (12.00-20.00) Ratio Calcium 8.2 L (8.7-10.3) mg/dL Total Bilirubin <0.2 L (0.3-1.2) mg/dL AST 54 H (13-35) U/L Total Protein 4.4 L (6.2-8.2) d/dL Albumin 2.6 L (3.8-4.9) d/dL Albumin/Globulin Ratio 1.44 L (1.60-3.17) Ratio
--- NOTE | 2022-12-14 13:42 | P.PN ---
Subjective Progress Note Date: 12/14/22 Principal diagnosis: emphysematous cystiti Patient is a 87-year-old female with a past medical history significant for hypertension hypothyroidism fibromyalgia asthma presenting to the hospital for evaluation of fatigue myalgias urinary frequency intermittent dysuria and also having some blood in the urine, patient did have a CT with evidence of emphysematous cystitis on Todays evaluation that is 12/14/2022, the patient remains to be afebrile, the patient is breathing comfortably on room air and denies any shortness of breath, the patient denies any chest pain or cough, patient of abdominal Abdominal pain has decreased in intensity and no nausea/vomiting or diarrhea Patient did have white count of 3.15, creatinine 0.5, Urine cultures grew E. coli that is a sensitive pathogen, patient did have a CT abdominal pelvis completed 12/06/2021 shows improvement in the emphysematous cystitis did shows evidence of gallstones Objective - Vital Signs Vital signs: Vital Signs Temp 98.0 F 12/14/22 07:55 Pulse 92 12/14/22 07:55 Resp 14 12/14/22 07:55 BP 137/92 12/14/22 07:55 Pulse Ox 96 12/14/22 07:55 FiO2 Intake & Output 12/13/22 12/14/22 12/14/22 18:59 06:59 18:59 Other: Voiding Method Toilet Toilet # Voids 1 0 # Bowel Movements 1 - Exam GENERAL DESCRIPTION: An elderly female lying in bed in no distress RESPIRATORY SYSTEM: Unlabored breathing , decreased breath sounds at bases HEART: S1 S2 regular rate and rhythm , ABDOMEN: Soft , no tenderness EXTREMITIES: No edema feet - Labs CBC & Chem 7: 12/14/22 04:40 12/14/22 04:40 Labs: Abnormal Lab Results - Last 24 Hours (Table) 12/14/22 12/14/22 Range/Units 04:40 04:40 WBC 3.15 L (4.50-10.00) X 10*3/uL RBC 3.43 L (4.10-5.20) X 10*6/uL Hgb 10.6 L (12.0-15.0) d/dL Hct 33.6 L (37.2-46.3) % MCV 98.0 H (80.0-97.0) FL MCHC 31.5 L (32.0-37.0) d/dL RDW 15.8 H (11.5-14.5) % MPV 8.5 L (9.5-12.2) FL Creatinine 0.5 L (0.6-1.5) mg/dL BUN/Creatinine Ratio 25.80 H (12.00-20.00) Ratio Calcium 8.2 L (8.7-10.3) mg/dL Total Bilirubin <0.2 L (0.3-1.2) mg/dL AST 54 H (13-35) U/L Total Protein 4.4 L (6.2-8.2) d/dL Albumin 2.6 L (3.8-4.9) d/dL Albumin/Globulin Ratio 1.44 L (1.60-3.17) Ratio Assessment and Plan (1) Emphysematous cystitis Current Visit: Yes Status: Acute Code(s): N30.80 - OTHER CYSTITIS WITHOUT HEMATURIA SNOMED Code(s): 46844890 Plan: 1patient presented to hospital with generalized weakness body aches patient did have urinary frequency dysuria and hematuria with significant abnormality of the bladder on the CT suspicious for emphysematous cystitis likely from enteric gram-negative pathogen, culture did grow E. coli that is a sensitive pathogen 2-patient has been combining of pain in the right upper quadrant epigastric area. ultrasound cannot r/o cholecystitis , Radiologist recommending MRI , surgery consulted--Recommending transfer to [facility] 3-patient seemed to have shown some clinical improvement and will continue with Rocephin 2 g daily and currently waiting for transfer to [facility] for gallbladder surgery, questions concerned were answered Dictation was produced using [employer] software. please excuse any grammatical, word or spelling errors. Time with Patient: Less than 30
--- NOTE | 2022-12-14 17:04 | CT ---
EXAMINATION TYPE: CT abdomen w con DATE OF EXAM: 12/14/2022 COMPARISON: 12/09/2022 INDICATION: Left renal abscess. DLP: 407.6 mGycm, Automated exposure control for dose reduction was used. CONTRAST: 100 ml mL of Isovue 300. Study performed without Oral Contrast TECHNIQUE: Axial images were obtained from above the diaphragm to the pubic rami in the axial plane a t 5 mm thick sections. Reconstructed images are reviewed on the computer in the coronal plane. FINDINGS: Limited CT sections are obtained the lung bases. There is a large hiatal hernia.. CT ABDOMEN: Liver: Biliary dilatation is evident. A stent appears to be within the common bile duct. Spleen: Normal Pancreas: Normal Adrenal glands: The adrenal glands are normal. Gallbladder: Gallstones are present. There may be some wall thickening and pericholecystic fluid. Cl inical consideration for acute cholecystitis is recommended. Kidneys: No masses are evident. No hydronephrosis is present. No cysts are present. Delayed images were obtained through the kidneys, which remain unremarkable. Aorta: Vascular calcification is within the aorta. Inferior vena cava: Normal. Large cystlike structures extending from the pelvis. These are present previously Upper CT PELVIS: Loops of bowel within the abdomen and pelvis are normal. There are loops of bowel which are incom pletely distended or lack oral contrast limiting their evaluation. IMPRESSION: 1. Large cyst extending from the inferior pelvis. Additional workup recommended. 2. Clinical correlation recommended for acute cholecystitis
[2022-12-14] MEDS: HEPARIN SODIUM,PORCINE 5,000 UNIT/ML 1 ML VIAL SQ SCH (22:16)
[2022-12-15] MEDS: PANTOPRAZOLE 40 MG TABLET PO SCH ×2 (06:52→16:26)
[2022-12-15] MEDS: CALCIUM CARBONATE 500 MG CHEWABLE PO SCH ×3 (06:52→13:39)
[2022-12-15] MEDS: LEVOTHYROXINE 50 MCG TAB PO SCH (06:52)
[2022-12-15] MEDS: SODIUM CHLORIDE 0.9% 1,000 ML IV SCH ×2 (06:53→20:33)
[2022-12-15] MEDS: lisinopriL 20 MG TAB PO SCH (08:57)
[2022-12-15] MEDS: HEPARIN SODIUM,PORCINE 5,000 UNIT/ML 1 ML VIAL SQ SCH ×2 (08:57→20:33)
[2022-12-15] MEDS: METOPROLOL SUCCINATE (ER) 50 MG TAB.ER.24H PO SCH (08:57)
[2022-12-15] MEDS: HYDROcodone/APAP 7.5-325MG 1 EACH TAB PO SCH ×3 (08:57→20:33)
[2022-12-15] MEDS: GABAPENTIN 300 MG CAP PO SCH ×3 (08:58→20:34)
[2022-12-15] MEDS: MEGESTROL 400 MG/10 ML CUP PO SCH (08:58)
--- NOTE | 2022-12-15 11:31 | P.PN ---
Subjective Progress Note Date: 12/15/22 Principal diagnosis: Emphysematous cystitis The patient is an 87-year-old white female admitted with emphysematous cystitis. Urine culture has shown pansensitive E. coli. She is receiving ceftriaxone, and a repeat CT scan performed yesterday showed that the gas within the bladder wall is essentially gone. The bladder continues to appear distended. Objective - Vital Signs Vital signs: Vital Signs Temp 97.9 F 12/15/22 01:28 Pulse 68 12/15/22 01:28 Resp 18 12/15/22 01:28 BP 158/82 12/15/22 01:28 Pulse Ox 97 12/15/22 01:28 FiO2 Intake & Output 12/14/22 12/15/22 12/15/22 18:59 06:59 18:59 Other: Voiding Method Toilet # Voids 4 3 - Constitutional General appearance: Present: average body habitus, no acute distress - Psychiatric Psychiatric: Present: A&O x's 3 - Labs CBC & Chem 7: 12/14/22 04:40 12/14/22 04:40 Labs: Abnormal Lab Results - Last 24 Hours (Table) 12/14/22 12/14/22 Range/Units 04:40 04:40 WBC 3.15 L (4.50-10.00) X 10*3/uL RBC 3.43 L (4.10-5.20) X 10*6/uL Hgb 10.6 L (12.0-15.0) d/dL Hct 33.6 L (37.2-46.3) % MCV 98.0 H (80.0-97.0) FL MCHC 31.5 L (32.0-37.0) d/dL RDW 15.8 H (11.5-14.5) % MPV 8.5 L (9.5-12.2) FL Creatinine 0.5 L (0.6-1.5) mg/dL BUN/Creatinine Ratio 25.80 H (12.00-20.00) Ratio Calcium 8.2 L (8.7-10.3) mg/dL Total Bilirubin <0.2 L (0.3-1.2) mg/dL AST 54 H (13-35) U/L Total Protein 4.4 L (6.2-8.2) d/dL Albumin 2.6 L (3.8-4.9) d/dL Albumin/Globulin Ratio 1.44 L (1.60-3.17) Ratio Assessment and Plan Assessment: The patient's bladder appears to be enlarged and multiloculated. This may be the result of multiple large bladder diverticuli. Urine culture showed pansensitive E. coli. The emphysematous cystitis has essentially resolved with antibiotic therapy. (1) Emphysematous cystitis Current Visit: Yes Status: Acute Code(s): N30.80 - OTHER CYSTITIS WITHOUT HEMATURIA SNOMED Code(s): 08152147 Plan: The patient remains hospitalized with gallbladder disease and may require a cholecystectomy. I would suggest she be treated with a total 4 week duration of antibiotics. I had a lengthy discussion with the patient regarding her bladder overdistention. I explained to her that incomplete bladder emptying can result in recurrent UTIs, overflow urinary incontinence, and hydronephrosis with renal failure. She states that this is the first time she has been treated for a UTI this year. She reports nocturia 6-7, and voids 6-7 times throughout the day. She reports minimal incontinence which does not require the use of pads. Her renal function is normal, and imaging and show no evidence of hydronephrosis. We discussed intermittent self-catheterization and a chronic indwelling Morley catheter, both of which she declines at this time. She will follow up with me in several weeks, at which time this will be discussed with her once again. Please notify us if we can be of any further assistance during this hospitalization.
--- NOTE | 2022-12-15 11:57 | P.PN ---
Subjective This is a 87-year-old white female with known history of chronic pain elements secondary to fibromyalgia with osteoarthritis. 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 The patient had computed tomography scan which did show bladder polyp. Patient evaluated by ID team, urologist and general surgical team. CT of the abdomen and pelvis showing large thin-walled urinary bladder with multiple diverticuli and emphysematous wall. While abdominal ultrasound showed an irregular thickened gallbladder with cholelithiasis. Surgical team recommended a transferred patient to [facility] as she had ERCP before with stenting, no GI coverage for this facility This time patient lying in bed comfortable, reniform mild epigastric to right upper quadrant pain or tenderness She remains on IV ceftriaxone. No IV fluids CBC showing hemoglobin of 10.6 but with evidence of hemoglobin delusion 12/15/2022 Patient awake alert, looks comfortable. She has mild lower abdominal pain and tenderness, no other pain or tenderness, she tolerates diet. No nausea vomiting. Patient states to me that she does not want to be transferred to [facility] as well as the family as per Bedside nurse because they messed up with her last time Also I discussed the case with GI team at [facility] and they declined the case because there is no imaging to prove Patient has choledocholithiasis for now, this was discussed with the staff and relayed the information to surgery team. As an alternative regard to consult GI team tomorrow as there is no GI coverage of this facilitates this weekend Hemoglobin was 10.6 yesterday. Labs is unremarkable. Monitor hemoglobin tomorrow Active Medications Generic Name Dose Route Start Last Admin Trade Name Al PRN Reason Stop Dose Admin Hydrocodone Bitart/Acetaminophen 1 each 12/06/22 09:00 12/15/22 08:57 Hydrocodone/Apap 7.5-325mg 1 Each Tab PO 1 each TID DENEEN Administration Calcium Carbonate/Glycine 500 mg 12/07/22 12:30 12/15/22 06:52 Calcium Carbonate 500 Mg Chewable PO Not Given AC-TID DENEEN Gabapentin 600 mg 12/06/22 09:00 12/15/22 08:58 Gabapentin 300 Mg Cap PO 600 mg TID DENEEN Administration Heparin Sodium (Porcine) 5,000 unit 12/14/22 21:00 12/15/22 08:57 Heparin Sodium,Porcine 5,000 Unit/Ml 1 Ml Vial SQ 5,000 unit Q12HR DENEEN Administration Hydromorphone HCl 0.5 mg 12/05/22 18:57 12/11/22 17:58 Hydromorphone 0.5 Mg/0.5 Ml Syringe IVP 0.5 mg Q3HR PRN Administration Moderate Pain (Scale 4 to 6) Hydromorphone HCl 1 mg 12/05/22 18:57 Hydromorphone 1 Mg/Ml 1 Ml Syringe IVP Q3HR PRN Severe Pain (Scale 7 to 10) Sodium Chloride 1,000 mls @ 75 mls/hr 12/05/22 19:00 12/15/22 06:53 Saline 0.9% IV 75 mls/hr .[id number] DENEEN Administration Ceftriaxone Sodium 2 gm/ 50 mls @ 100 mls/hr 12/08/22 15:00 12/15/22 08:58 Sodium Chloride IVPB 100 mls/hr Q24HR DENEEN Administration Protocol Levothyroxine Sodium 50 mcg 12/06/22 09:00 12/15/22 06:52 Levothyroxine 50 Mcg Tab PO 50 mcg DAILY@0630 DENEEN Administration Lisinopril 20 mg 12/06/22 09:00 12/15/22 08:57 Lisinopril 20 Mg Tab PO 20 mg DAILY DENEEN Administration Megestrol Acetate 400 mg 12/10/22 09:00 12/15/22 08:58 Megestrol 400 Mg/10 Ml Cup PO 400 mg DAILY DENEEN Administration Metoprolol Succinate 50 mg 12/10/22 09:00 12/15/22 08:57 Metoprolol Succinate (Er) 50 Mg Tab.Er.24h PO 50 mg DAILY DENEEN Administration Naloxone HCl 0.2 mg 12/05/22 18:57 Naloxone 0.4 Mg/Ml 1 Ml Vial IV Q2M PRN Opioid Reversal Ondansetron HCl 4 mg 12/05/22 18:57 Ondansetron 4 Mg/2 Ml Vial IVP Q8HR PRN Nausea And Vomiting Pantoprazole Sodium 40 mg 12/06/22 09:00 12/15/22 06:52 Pantoprazole 40 Mg Tablet PO 40 mg AC-BID DENEEN Administration Objective - Vital Signs Vital signs: Vital Signs Temp 98.6 F 12/15/22 07:12 Pulse 80 12/15/22 07:12 Resp 17 12/15/22 07:12 BP 153/90 12/15/22 07:12 Pulse Ox 96 12/15/22 07:12 FiO2 Intake & Output 12/14/22 12/15/22 12/15/22 18:59 06:59 18:59 Other: Voiding Method Toilet # Voids 4 3 - Exam GENERAL: The patient is alert and oriented x3, not in any acute distress. Well developed, well nourished. HEENT: Pupils are round and equally reacting to light. EOMI. No scleral icterus. No conjunctival pallor. Normocephalic, atraumatic. No pharyngeal erythema. No thyromegaly. CARDIOVASCULAR: S1 and S2 present. No murmurs, rubs, or gallops. PULMONARY: Chest is clear to auscultation, no wheezing , no crackles. -ABDOMEN: Soft, mild RUQ tenderness, no guarding or rebound tenderness , nondistended, normoactive bowel sounds. No palpable organomegaly. MUSCULOSKELETAL: No joint swelling or deformity. EXTREMITIES: No cyanosis, clubbing, or pedal edema. NEUROLOGICAL: Gross neurological examination did not reveal any focal deficits. SKIN: No rashes. no petechiae. - Labs CBC & Chem 7: 12/14/22 04:40 12/14/22 04:40 Assessment and Plan Assessment: E coli urinary tract infection secondary to emphysematous cystitis Cholecystitis History with cholelithiasis status post ERCP and stent and subsequent gastric perforation done at [facility] and 03/2021 mild anemia Generalized weakness secondary to above Plan: Continue with ceftriaxone General surgery, infectious disease and neurology team on the case The plan is transfer the patient to [facility] for higher level of care. However patient/family decline as well as GI service at [facility] declined. Alternatively consult GI service tomorrow also pt has evidance of emphysematous cycsitis and seen on repeat ct of the abd, i discussed the case with and he recommended self cath which pt does not want to do , alternatively pt will need to follow up with louise as outpt after discharge as he recommended to me Labs and medication were reviewed.. Continue same treatment. Continue with symptomatic treatment. Resume home medication. Monitor labs and vitals. DVT and GI prophylaxis. Further recommendations as per clinical course of the patient DVT prophylaxis: Subcutaneous heparin GI Prophylaxis: Pepcid Prognosis is guarded
--- NOTE | 2022-12-15 12:45 | P.PN ---
Subjective Progress Note Date: 12/15/22 Patient reports feeling great. Transfer held as patient declined transfer for management of CBD stent and stones. Clinically she is tolerating diet. She will need follow up for her stent and will need cholecystectomy pending cardiac risk assessment which may be done as outpatient. Objective - Vital Signs Vital signs: Vital Signs Temp 98.6 F 12/15/22 07:12 Pulse 80 12/15/22 07:12 Resp 17 12/15/22 07:12 BP 153/90 12/15/22 07:12 Pulse Ox 96 12/15/22 07:12 FiO2 Intake & Output 12/14/22 12/15/22 12/15/22 18:59 06:59 18:59 Other: Voiding Method Toilet # Voids 4 3 - Labs CBC & Chem 7: 12/14/22 04:40 12/14/22 04:40
--- NOTE | 2022-12-15 15:53 | P.PN ---
Subjective Progress Note Date: 12/15/22 Principal diagnosis: emphysematous cystiti Patient is a 87-year-old female with a past medical history significant for hypertension hypothyroidism fibromyalgia asthma presenting to the hospital for evaluation of fatigue myalgias urinary frequency intermittent dysuria and also having some blood in the urine, patient did have a CT with evidence of emphysematous cystitis on Todays evaluation that is 12/15/2022, the patient denies any fever or chills, the patient is breathing comfortably on room air and no need for supplemental oxygen, the patient denies any chest pain or cough, patient denies nausea/vomiting or diarrhea and no abdominal pain Patient did have white count of 3.15, creatinine 0.5 as of yesterday no laboratory today, Urine cultures grew E. coli that is a sensitive pathogen, patient did have a CT abdominal pelvis completed 12/06/2022 shows improvement in the emphysematous cystitis did shows evidence of gallstones Objective - Vital Signs Vital signs: Vital Signs Temp 98.6 F 12/15/22 07:12 Pulse 80 12/15/22 07:12 Resp 17 12/15/22 07:12 BP 153/90 12/15/22 07:12 Pulse Ox 96 12/15/22 07:12 FiO2 Intake & Output 12/14/22 12/15/22 12/15/22 18:59 06:59 18:59 Other: Voiding Method Toilet # Voids 4 3 - Exam GENERAL DESCRIPTION: An elderly female lying in bed in no distress RESPIRATORY SYSTEM: Unlabored breathing , decreased breath sounds at bases HEART: S1 S2 regular rate and rhythm , ABDOMEN: Soft , no tenderness EXTREMITIES: No edema feet - Labs CBC & Chem 7: 12/14/22 04:40 12/14/22 04:40 Assessment and Plan (1) Emphysematous cystitis Current Visit: Yes Status: Acute Code(s): N30.80 - OTHER CYSTITIS WITHOUT HEMATURIA SNOMED Code(s): 70592095 Plan: 1patient presented to hospital with generalized weakness body aches patient did have urinary frequency dysuria and hematuria with significant abnormality of the bladder on the CT suspicious for emphysematous cystitis likely from enteric gram-negative pathogen, culture did grow E. coli that is a sensitive pathogen 2-patient has been combining of pain in the right upper quadrant epigastric area. ultrasound cannot r/o cholecystitis , Radiologist recommending MRI , surgery consulted--Recommending transfer to [facility] 3-patient has shown clinical improvement and will continue with Rocephin 2 g daily and currently waiting for transfer to [facility] for gallbladder surgery, and monitor clinical course closely Dictation was produced using [employer] dictation software. please excuse any grammatical, word or spelling errors. Time with Patient: Less than 30
[2022-12-16] MEDS: CALCIUM CARBONATE 500 MG CHEWABLE PO SCH ×2 (05:55→11:41)
[2022-12-16] MEDS: LEVOTHYROXINE 50 MCG TAB PO SCH (05:55)
[2022-12-16] MEDS: PANTOPRAZOLE 40 MG TABLET PO SCH (05:55)
[2022-12-16] MEDS: SODIUM CHLORIDE 0.9% 1,000 ML IV SCH (05:56)
[2022-12-16 08:22] VITALS: RESP 15
[2022-12-16] MEDS: METOPROLOL SUCCINATE (ER) 50 MG TAB.ER.24H PO SCH (08:33)
[2022-12-16] MEDS: HEPARIN SODIUM,PORCINE 5,000 UNIT/ML 1 ML VIAL SQ SCH (08:33)
[2022-12-16] MEDS: HYDROcodone/APAP 7.5-325MG 1 EACH TAB PO SCH (08:33)
[2022-12-16] MEDS: MEGESTROL 400 MG/10 ML CUP PO SCH (08:33)
[2022-12-16] MEDS: lisinopriL 20 MG TAB PO SCH (08:33)
[2022-12-16] MEDS: GABAPENTIN 300 MG CAP PO SCH (08:33)
[2022-12-16 09:05] LABS: HCT 34.7 % (37.2-46.3); MCH 31.1 pg (27.0-32.0); MCHC 31.7 d/dL (32.0-37.0); Mean Platelet Volume 8.4 FL (9.5-12.2); NRBC Per 100 WBC 0 X 10*3/uL (0.00-0.01); Platelet Count 251 X 10*3/uL (140-440); RBC 3.54 X 10*6/uL (4.10-5.20); RDW 15.4 % (11.5-14.5); WBC 2.93 X 10*3/uL (4.50-10.00)
--- NOTE | 2022-12-16 11:17 | P.PN ---
Subjective Progress Note Date: 12/16/22 CHIEF COMPLAINT: abdominal pain HISTORY OF PRESENT ILLNESS: Patient reports improvement in her abdominal pain. She reports that there is just minimal pain in the epigastric area. She had refused transfer to [facility] over the weekend. She denies any nausea or vomiting. She is tolerating diet. She is to be evaluated by GI service at this facility regarding removal of the stent from when she had her ERCP procedure in March 2021. PHYSICAL EXAM: VITAL SIGNS: Reviewed GENERAL: Well-developed in no acute distress. HEENT: No sclera icterus. Extraocular movements grossly intact. Moist buccal mucosa. Head is atraumatic, normocephalic. Hears conversational speech. No nasal drainage. NECK: Supple without lymphadenopathy. CHEST: Non-labored respirations and equal bilateral excursions. CARDIOVASCULAR: Palpable 2+ radial pulses. ABDOMEN: Soft. Nondistended. Minimal discomfort with palpation epigastric area MUSCULOSKELETAL: No clubbing or cyanosis. NEUROLOGIC: No focal or lateralizing signs. Cranial nerves II through XII grossly intact. PSYCH: Pleasantly confused SKIN: Well perfused. Good skin turgor. ASSESSMENT: 1. Right upper quadrant Abdominal pain with abdominal ultrasound showing irregular thickened gallbladder wall and cholelithiasis. 2. History of choledocholithiasis with ERCP and stent and subsequent gastric perforation with oversew at [facility] in March 2021 3. Emphysematous cystitis 4. Urinary bladder with multiple diverticulum PLAN: -Awaiting GI service recommendations -Patient will need the stent removed and will need cholecystectomy pending cardiac risk assessment which may be done outpatient. -Continue antibiotics -Continue supportive care Physician Magnetic Tester note has been reviewed by physician. Signing provider agrees with the documented findings, assessment, and plan of care. Objective - Vital Signs Vital signs: Vital Signs Temp 99.1 F 12/16/22 08:00 Pulse 88 12/16/22 08:00 Resp 15 12/16/22 08:00 BP 167/91 12/16/22 08:00 Pulse Ox 96 12/16/22 08:00 FiO2 Intake & Output 12/15/22 12/16/22 12/16/22 18:59 06:59 18:59 Other: Voiding Method Toilet # Voids 3 2 - Labs CBC & Chem 7: 12/16/22 05:40 12/14/22 04:40 Labs: Abnormal Lab Results - Last 24 Hours (Table) 12/16/22 Range/Units 05:40 WBC 2.93 L (4.50-10.00) X 10*3/uL RBC 3.54 L (4.10-5.20) X 10*6/uL Hgb 11.0 L (12.0-15.0) d/dL Hct 34.7 L (37.2-46.3) % MCV 98.0 H (80.0-97.0) FL MCHC 31.7 L (32.0-37.0) d/dL RDW 15.4 H (11.5-14.5) % MPV 8.4 L (9.5-12.2) FL
[2022-12-16 14:25] VITALS: BP 140/84; PULSE 71; TEMP 98.3
--- NOTE | 2022-12-16 14:52 | P.CONS ---
History of Present Illness - Reason for Consult Consult date: 12/16/22 Abdominal pain Requesting physician: Bandar E Sheet - Chief Complaint Weakness, abdominal pain, decreased appetite - History of Present Illness This is a pleasant 87-year-old female who presented to the emergency department on 12/05/2022 with complaints of decreased appetite, nausea, abdominal pain and weakness. She has a past medical history including asthma, fibromyalgia, hypertension, osteoarthritis, and thyroid disorder. The patient was admitted with multiple workup including urology consultation for emphysematous cystitis, general surgery for cholelithiasis/cholecystitis. Patient had multiple CAT scans of the abdomen with and without contrast. She was noted to have a large thin-walled cystic mass in the pelvis confirming strict reflux urinary bladder with multiple diverticula, choledocholithiasis, colonic diverticulitis without evidence for acute diverticulitis, moderate to large hiatal hernia, distended gallbladder with gallstones, intra-and extrabiliary ductal dilation with common bile duct stent identified. Latest CT with contrast done on 12/14/2022 reporting large cyst extending from the inferior pelvis. Additional workup recommended. Clinical correlation recommended for acute cholecystitis. General surgery is following, patient was started on IV Zosyn with recommendations for outpatient cholecystectomy pending biliary stent removal. Apparently patient was admitted to [facility] in March 2021 during which time she was seen by gastroenterology and underwent an ERCP on 04/10/[address] Landrum. Findings included choledocholithiasis treated with sphincterectomy and placement of 10-Turkmen by 7 cm plastic stent according to the endoscopic report. It was determined that patient had a gastric perforation and underwent laparoscopy with oversew of gastric perforation on 04/10/2021. according to the operative report patient's family requested minimal intervention through the gallbladder and it was left in place as well as hiatal hernia. According to the patient and her daughter they had no knowledge that patient had a biliary stent placed and no knowledge that they were to follow-up with gastroenterology. Patient has not had any follow-up with a master welder since stent was placed in March 2021. She currently denies any abdominal pain, nausea or vomiting. She states her appetite is improved. Discharge order has been placed this morning by Dr. Tinsley. Labs WBC 2.9 hemoglobin 11.0 hematocrit 34.7 platelet count 251,000 total bilirubin less than 0.2 AST 56-year-old T 36 alkaline phosphatase 63 Review of Systems REVIEW OF SYSTEMS: CARDIOPULMONARY: No chest pain or shortness of breath. Gastrointestinal: No abdominal pain. No nausea or vomiting. No hematemesis, coffee-ground emesis. No rectal bleeding, or melena. GENITOURINARY: No dysuria or hematuria. MUSCULOSKELETAL: Reports normal range of motion. Joint pain. SKIN: No rashes. No jaundice. ENDOCRINE: No chills, fevers. No excessive weight gain or loss. No polydipsia or polyuria. PSYCHIATRIC: Unremarkable. NEUROLOGY: No change in mental status. Denies dizziness, headache. ENT: Vision unremarkable. CONSTITUTIONAL: No recent weight loss. No fever, chills, night sweats. Past Medical History Past Medical History: Asthma, Fibromyalgia, Hypertension, Osteoarthritis (OA), Thyroid Disorder Additional Past Medical History / Comment(s): Neuropathy History of Any Multi-Drug Resistant Organisms: None Reported Past Surgical History: Appendectomy, Joint Replacement Additional Past Surgical History / Comment(s): RIGHT KNEE Past Anesthesia/Blood Transfusion Reactions: No Reported Reaction Past Psychological History: Depression Smoking Status: Former smoker Past Alcohol Use History: None Reported Additional Past Alcohol Use History / Comment(s): states "smoked many years ago" Past Drug Use History: None Reported - Past Family History Father Family Medical History: Cancer Medications and Allergies Home Medications Medication Instructions Recorded Confirmed Type Levothyroxine Sodium [Synthroid] 50 mcg PO DAILY 05/13/14 12/05/22 History HYDROcodone/APAP 7.5-325MG [[place] 1 tab PO TID 06/20/16 12/05/22 History 7.5-325] Gabapentin 600 mg PO TID 10/01/20 12/05/22 History Pantoprazole Sodium [Protonix] 40 mg PO BID 10/01/20 12/05/22 History lisinopriL [Zestril] 20 mg PO DAILY 10/01/20 12/05/22 History Metoprolol Succinate (ER) [Toprol 25 mg PO DAILY 12/05/22 12/05/22 History XL] Megestrol [Megace] 400 mg PO DAILY ml 12/12/22 Rx Ciprofloxacin HCl [Cipro] 500 mg PO BID 21 Days #42 tab 12/16/22 Rx Allergies Allergy/AdvReac Type Severity Reaction Status Date / Time No Known Allergies Allergy Verified 12/05/22 14:20 Physical Exam Vitals: Vital Signs Temp Pulse Resp BP Pulse Ox 12/16/22 08:00 99.1 F 88 15 167/91 96 12/16/22 01:06 98.3 F 67 18 143/84 96 12/15/22 20:00 18 12/15/22 18:52 98.1 F 71 18 127/79 97 12/15/22 14:53 97.5 F L 78 16 108/68 95 Intake and Output 12/15/22 12/16/22 12/16/22 22:59 06:59 14:59 Other: Voiding Method Toilet # Voids 3 2 General appearance: The patient is alert, oriented, appears in no acute distress. HET: Head is normocephalic and atraumatic. Conjunctiva pink. Sclera anicteric. Neck: Supple without lymphadenopathy. Trachea midline. Heart: Regular. Lungs: Equal expansion, normal respiratory effort. Abdomen: Soft, upper abdominal tenderness with palpation, nondistended with bowel sounds. No guarding or rigidity. Skin: No rashes. No jaundice. Extremities: Normal skin color and turgor. No pedal edema. Neurological: No focal deficits. Alert and oriented x3. Results CBC & Chem 7: 12/16/22 05:40 12/14/22 04:40 Labs: Abnormal Lab Results - Last 24 Hours (Table) 12/16/22 Range/Units 05:40 WBC 2.93 L (4.50-10.00) X 10*3/uL RBC 3.54 L (4.10-5.20) X 10*6/uL Hgb 11.0 L (12.0-15.0) d/dL Hct 34.7 L (37.2-46.3) % MCV 98.0 H (80.0-97.0) FL MCHC 31.7 L (32.0-37.0) d/dL RDW 15.4 H (11.5-14.5) % MPV 8.4 L (9.5-12.2) FL CT scan - abdomen: report reviewed (Multiple CAT scans of abdomen and pelvis with and without contrast reviewed) Assessment and Plan (1) Abdominal pain Narrative/Plan: 87-year-old female who had presented with multiple complaints including weakness, dysuria, abdominal pain, decreased appetite was found to have urinary tract infection as well as cholelithiasis. Abdominal pain now resolved other than some tenderness with palpation. Gen. surgery had been following for cholelithiasis recommending outpatient follow-up and cholecystectomy. Patient has a history of choledochal lithiasis and was transferred down to [facility] in March 2021 where she underwent ERCP with CBD stent placement. Patient also was noted to have pneumoperitoneum, underwent laparotomy with findings of gastric perforation. Patient states she had no follow-up with gastroenterology following ERCP although it was recommended per report to follow-up in 6-8 weeks. Patient states that she did not know she was supposed to follow-up. Labs are normal, other than mild elevation in AST. Patient has been afebrile. Recommend follow-up with previous master welder Dr. Landrum. Status: Acute Code(s): R10.9 - UNSPECIFIED ABDOMINAL PAIN SNOMED Code(s): 65193918 (2) Cholelithiasis Status: Acute Code(s): K80.20 - CALCULUS OF GALLBLADDER W/O CHOLECYSTITIS W/O OBSTRUCTION SNOMED Code(s): 287254708 (3) History of biliary stent insertion Narrative/Plan: Previous ERCP 04/10/21 report reviewed with reported large stone in CBD with inability to sleep, stent was placed. Patient and family state they were unaware of stent placement and follow-up with gastroenterology. Recommend outpatient follow-up with advanced GI/endoscopist at [facility]. Patient will follow-up with GI in one week for referral. Status: Acute Code(s): Z98.890 - OTHER SPECIFIED POSTPROCEDURAL STATES SNOMED Code(s): 401716908 (4) Emphysematous cystitis Status: Acute Code(s): N30.80 - OTHER CYSTITIS WITHOUT HEMATURIA SNOMED Code(s): 20390187 Plan: 1. Continue symptomatic supportive care 2. Continue with recommendations from general surgery 3. Recommend outpatient follow-up with Dr. Paz in one week. Will refer to [facility] advanced endoscopist/GI for repeat ERCP. Plan discussed with patient and daughter who were agreeable. 4. Patient cleared from gastroenterology for discharge Thank you for this consultation, we will sign off at this time. Dr. Rocael Paz I agree with the dictator's note, documented as a scribe by Nirmala Lamb.
== END 2022-12-16 14:47 | disposition home or self-care (01) | DRG 689 ==
LOC: SUPCPDRO 13:29 → EC 13:29 → 5NMEDONC 19:25 → 4SSUR 20:34 → OBSVTOIN 12-06 13:11
PROVIDERS: ADMIT Family Medicine; ATTEND Family Medicine
DX: N30.80 Other cystitis without hematuria (principal); E43 Unspecified severe protein-calorie malnutrition; Z68.1 Body mass index [BMI] 19.9 or less, adult; B96.20 Unspecified Escherichia coli [E. coli] as the cause of diseases classified elsewhere; E03.9 Hypothyroidism, unspecified; E86.0 Dehydration; F32.A Depression, unspecified; G47.00 Insomnia, unspecified; K80.20 Calculus of gallbladder without cholecystitis without obstruction; G89.4 Chronic pain syndrome; M19.90 Unspecified osteoarthritis, unspecified site; M79.7 Fibromyalgia; N13.70 Vesicoureteral-reflux, unspecified; J45.909 Unspecified asthma, uncomplicated; R13.10 Dysphagia, unspecified; K57.30 Diverticulosis of large intestine without perforation or abscess without bleeding; G62.9 Polyneuropathy, unspecified; I10 Essential (primary) hypertension; Z66 Do not resuscitate; Z87.11 Personal history of peptic ulcer disease; Z96.0 Presence of urogenital implants; Z20.822 Contact with and (suspected) exposure to COVID-19; Z79.890 Hormone replacement therapy; Z79.899 Other long term (current) drug therapy; Z79.891 Long term (current) use of opiate analgesic; Z71.3 Dietary counseling and surveillance; Z87.891 Personal history of nicotine dependence
CPT/HCPCS: 36415; 70491; 74018; 74160; 74176; 74177; 76705; 80048; 80053; 81001; 82150; 83605; 83690; 84484; 85025; 85027; 85610; 85730; 87077; 87086; 87186; 87636; 93005; 96365; 96375; 99285

== ENCOUNTER 2022-12-20 15:40 | Emergency (ER) | payer MEDICARE ==
[2022-12-20 16:00] VITALS: RESP 18
[2022-12-20] MEDS ORDERED: HYDROcodone/APAP 5-325MG 1 EACH TAB PO STA (16:21)
--- NOTE | 2022-12-20 16:27 | ED ---
Abdominal Pain HPI - General Chief Complaint: Abdominal Pain Stated Complaint: Gallbladder pain Time Seen by Provider: 12/20/22 15:46 Source: patient, EMS Mode of arrival: EMS - History of Present Illness Initial Comments: This patient is an 87-year-old woman who states she is here because she feels "out of it." He states this been going on since late last evening. Patient had been in the hospital until about 45 days ago when she was discharged. The patient had been in the hospital for generalized weakness that they felt was related to urinary tract infection and also she does have element of biliary disease. Patient found have gall stone that was causing symptoms and they recommended transfer to [facility] and possible cholecystectomy, but patient refused. Patient denies fevers. She has had some intermittent nausea and intermittent upper abdominal pain. She states the thing that is bothering her most right now is the neuropathy pain to both feet that she usually gets. She does take Neurontin but it's only providing minimal relief. MD Complaint: abdominal pain, other (Bilateral foot pain) -: days(s) Quality: burning Consistency: constant Improves With: nothing Worsens With: nothing Associated Symptoms: nausea - Related Data Home Medications Medication Instructions Recorded Confirmed Levothyroxine Sodium [Synthroid] 50 mcg PO DAILY@0600 05/13/14 01/01/23 Pantoprazole Sodium [Protonix] 40 mg PO DAILY@0600 10/01/20 01/01/23 lisinopriL [Zestril] 20 mg PO DAILY@0800 10/01/20 01/01/23 Metoprolol Succinate (ER) [Toprol 25 mg PO DAILY@0800 12/05/22 01/01/23 XL] Acetaminophen Tab [Tylenol] 650 mg PO Q4H PRN 01/01/23 01/01/23 Ensure Enlive 237 ml PO DAILY@0800 01/01/23 01/01/23 Gabapentin [Neurontin] 300 mg PO Q8H 01/01/23 01/01/23 Magic Cup 1 dose PO BID@1200,1700 01/01/23 01/01/23 Magnesium Hydroxide [Milk of 7,200 mg PO DIRECTED PRN 01/01/23 01/01/23 Magnesia Concentrate] Na Phos,M-B/Na Phos,Di-Ba [Fleet 133 ml RECTAL DAILY PRN 01/01/23 01/01/23 Adult] bisacodyL [Dulcolax] 10 mg RECTAL DAILY PRN 01/01/23 01/01/23 oxyCODONE HCL [OxyIR] 5 mg PO Q4H PRN 01/01/23 01/01/23 Allergies Allergy/AdvReac Type Severity Reaction Status Date / Time No Known Allergies Allergy Verified 01/01/23 21:24 Review of Systems ROS Statement: Those systems with pertinent positive or pertinent negative responses have been documented in the HPI. ROS Other: All systems not noted in ROS Statement are negative. Constitutional: Denies: fever, chills Respiratory: Denies: cough, dyspnea Cardiovascular: Denies: chest pain, palpitations Gastrointestinal: Reports: abdominal pain, nausea. Denies: vomiting, diarrhea, constipation, melena, hematochezia Genitourinary: Denies: dysuria, hematuria Musculoskeletal: Denies: back pain Skin: Denies: rash Neurological: Reports: paresthesias (Foot). Denies: headache, weakness, numbness Past Medical History Past Medical History: Asthma, Fibromyalgia, Hypertension, Osteoarthritis (OA), Thyroid Disorder Additional Past Medical History / Comment(s): Neuropathy History of Any Multi-Drug Resistant Organisms: None Reported Past Surgical History: Appendectomy, Joint Replacement Additional Past Surgical History / Comment(s): RIGHT KNEE Past Anesthesia/Blood Transfusion Reactions: No Reported Reaction Past Psychological History: Depression Smoking Status: Former smoker Past Alcohol Use History: None Reported Past Drug Use History: None Reported - Past Family History Father Family Medical History: Cancer Course Vital Signs 12/20/22 12/20/22 12/20/22 15:48 16:55 21:33 Temperature 98.3 F 98.1 F Pulse Rate 66 66 75 Respiratory 18 18 18 Rate Blood Pressure 157/90 163/92 109/74 O2 Sat by Pulse 98 99 Oximetry 12/20/22 22:42 Temperature 98 F Pulse Rate 75 Respiratory 18 Rate Blood Pressure 155/85 O2 Sat by Pulse 96 Oximetry Medical Decision Making - Medical Decision Making 's patient is an 87-year-old woman here with abdominal pain. I discussed the case with her physician, Dr. Tinsley. He states that the patient had recent cholecystitis and they would not take action as no GI coverage here. He would like patient to be transferred where there is gastroenterology. We discussed the lab which are essentially negative related cholestasis. The case then discussed with family and they request transfer to [facility] if this is possible. I discussed the case with Dr. Aleln there who will accept transfer. Was pt. sent in by a medical professional or institution (JEANNE Abdi, MECHANICAL MAINTENANCE SUPERVISOR, urgent care, hospital, or intermediate...) When possible be specific @ -[No] Did you speak to anyone other than the patient for history (EMS, parent, family, police, friend...)? What history was obtained from this source @ -[Family contributed history Did you review nursing and triage notes (agree or disagree)? Why? @ -[I reviewed and agree with nursing and triage notes] Were old charts reviewed (outside hosp., previous admission, EMS record, old EKG, old radiological studies, urgent care reports/EKG's, intermediate records)? Report findings @ -old charts were reviewed Differential Diagnosis (chest pain, altered mental status, abdominal pain women, abdominal pain men, vaginal bleeding, weakness, fever, dyspnea, syncope, headache, dizziness, GI bleed, back pain, seizure, CVA, palpatations, mental health, musculoskeletal)? @ -[Differential Abdominal Pain Women: Appendicitis, Cholecystitis, diverticulosis, ischemic bowel, pancreatitis, hepatitis, UTI, gastroenteritis, AAA, incarcerated hernia, bowel obstruction, constipation, inflammatory bowel, hepatitis, peptic ulcer disease, splenic infa rction, perforated viscus, vulvitis, ovarian torsion, PID, kidney stone, placenta abruption, this is not meant to be an all-inclusive list EKG interpreted by me (3pts min.). @ -[ X-rays interpreted by me (1pt min.). @ -[None done] CT interpreted by me (1pt min.). @ -[None done] U/S interpreted by me (1pt. min.). @ -[None done] What testing was considered but not performed or refused? (CT, X-rays, U/S, labs)? Why? @ -[None] What meds were considered but not given or refused? Why? @ -[None] Did you discuss the management of the patient with other professionals (professionals i.e. JEANNE Abdi, MECHANICAL MAINTENANCE SUPERVISOR, lab, RT, psych nurse, social service assistant, target aircraft controller, teacher, security police officer, rn case mgr)? Give summary @ -[I discussed the patient's case with her primary physician, see above and also with the receiving physician who accepted transfer Was smoking cessation discussed for >3mins.? @ -[No] Was critical care preformed (if so, how long)? @ -[No] Were there social determinants of health that impacted care today? How? (Homelessness, low income, unemployed, alcoholism, drug addiction, transportation, low edu. Level, literacy, decrease access to med. care, penitentiary, rehab)? @ -[No] Was there de-escalation of care discussed even if they declined (Discuss DNR or withdrawal of care, Hospice)? DNR status @ -[No] What co-morbidities impacted this encounter? (DM, HTN, Smoking, COPD, CAD, Cancer, CVA, ARF, Chemo, Hep., AIDS, mental health diagnosis, sleep apnea, morbid obesity)? @ -[None] Was patient admitted / discharged? Hospital course, mention meds given and route, prescriptions, significant lab abnormalities, going to OR and other pertinent info. @ -[Patient transferred to have gastroenterology evaluation Undiagnosed new problem with uncertain prognosis? @ -[No] Drug Therapy requiring intensive monitoring for toxicity (Heparin, Nitro, Insulin, Cardizem)? @ -[No] Were any procedures done? @ -[No] Diagnosis/symptom? @ -[Acute abdominal pain Acute urinary tract infection Acute, or Chronic, or Acute on Chronic? @ -[Acute Uncomplicated (without systemic symptoms) or Complicated (systemic symptoms)? @ -[Uncomplicated Side effects of treatment? @ -[No] Exacerbation, Progression, or Severe Exacerbation? @ -[No] Poses a threat to life or bodily function? How? (Chest pain, USA, [place], pneumonia, PE, COPD, DKA, ARF, appy, cholecystitis, CVA, Diverticulitis, Homicidal, Suicidal, threat to staff... and all critical care pts) @ -[Low likelihood at this point, patient does require further workup though will be transferred to continue this - Lab Data Result diagrams: 12/20/22 16:19 12/20/22 16:19 Lab Results 12/20/22 12/20/22 12/20/22 Range/Units 16:19 16:19 16:20 WBC 1.8 L (3.8-10.6) k/uL RBC 4.03 (3.80-5.40) m/uL Hgb 12.8 (11.4-16.0) gm/dL Hct 40.4 (34.0-46.0) % MCV 100.1 H (80.0-100.0) fL MCH 31.7 (25.0-35.0) pg MCHC 31.6 (31.0-37.0) g/dL RDW 15.3 (11.5-15.5) % Plt Count 297 (150-450) k/uL MPV 7.2 Neutrophils % Not Reportable Neutrophils % (Manual) 44 % Lymphocytes % Not Reportable Lymphocytes % (Manual) 40 % Monocytes % Not Reportable Monocytes % (Manual) 8 % Eosinophils % Not Reportable Eosinophils % (Manual) 8 % Basophils % Not Reportable Neutrophils # Not Reportable Neutrophils # (Manual) 0.79 L (1.3-7.7) k/uL Lymphocytes # Not Reportable Lymphocytes # (Manual) 0.72 L (1.0-4.8) k/uL Monocytes # Not Reportable Monocytes # (Manual) 0.14 (0-1.0) k/uL Eosinophils # Not Reportable Eosinophils # (Manual) 0.14 (0-0.7) k/uL Basophils # Not Reportable Nucleated RBCs 0 (0-0) /100 WBC Manual Slide Review Performed Hypochromasia Slight Macrocytosis Slight Sodium 137 (137-145) mmol/L Potassium 4.5 (3.5-5.1) mmol/L Chloride 108 H (98-107) mmol/L Carbon Dioxide 23 (22-30) mmol/L Anion Gap 6 mmol/L BUN 18 H (7-17) mg/dL Creatinine 0.60 (0.52-1.04) mg/dL Est GFR (CKD-EPI)AfAm >90 (>60 ml/min/1.73 sqM) Est GFR (CKD-EPI)NonAf 84 (>60 ml/min/1.73 sqM) Glucose 80 (74-99) mg/dL Plasma Lactic Acid John 1.0 (0.7-2.0) mmol/L Calcium 8.1 L (8.4-10.2) mg/dL Total Bilirubin 0.5 (0.2-1.3) mg/dL AST 21 (14-36) U/L ALT 21 (4-34) U/L Alkaline Phosphatase 55 (38-126) U/L Troponin I (0.000-0.034) ng/mL Total Protein 5.4 L (6.3-8.2) g/dL Albumin 3.0 L (3.5-5.0) g/dL Amylase 67 (30-110) U/L Lipase 316 H (23-300) U/L Urine Color Urine Appearance (Clear) Urine pH (5.0-8.0) Ur Specific [place] (1.001-1.035) Urine Protein (Negative) Urine Glucose (UA) (Negative) Urine Ketones (Negative) Urine Blood (Negative) Urine Nitrite (Negative) Urine Bilirubin (Negative) Urine Urobilinogen (<2.0) mg/dL Ur Leukocyte Esterase (Negative) Urine RBC (0-5) /hpf Urine WBC (0-5) /hpf Urine WBC Clumps (None) /hpf Urine Mucus (None) /hpf 12/20/22 12/20/22 Range/Units 16:20 18:25 WBC (3.8-10.6) k/uL RBC (3.80-5.40) m/uL Hgb (11.4-16.0) gm/dL Hct (34.0-46.0) % MCV (80.0-100.0) fL MCH (25.0-35.0) pg MCHC (31.0-37.0) g/dL RDW (11.5-15.5) % Plt Count (150-450) k/uL MPV Neutrophils % Neutrophils % (Manual) % Lymphocytes % Lymphocytes % (Manual) % Monocytes % Monocytes % (Manual) % Eosinophils % Eosinophils % (Manual) % Basophils % Neutrophils # Neutrophils # (Manual) (1.3-7.7) k/uL Lymphocytes # Lymphocytes # (Manual) (1.0-4.8) k/uL Monocytes # Monocytes # (Manual) (0-1.0) k/uL Eosinophils # Eosinophils # (Manual) (0-0.7) k/uL Basophils # Nucleated RBCs (0-0) /100 WBC Manual Slide Review Hypochromasia Macrocytosis Sodium (137-145) mmol/L Potassium (3.5-5.1) mmol/L Chloride (98-107) mmol/L Carbon Dioxide (22-30) mmol/L Anion Gap mmol/L BUN (7-17) mg/dL Creatinine (0.52-1.04) mg/dL Est GFR (CKD-EPI)AfAm (>60 ml/min/1.73 sqM) Est GFR (CKD-EPI)NonAf (>60 ml/min/1.73 sqM) Glucose (74-99) mg/dL Plasma Lactic Acid John (0.7-2.0) mmol/L Calcium (8.4-10.2) mg/dL Total Bilirubin (0.2-1.3) mg/dL AST (14-36) U/L ALT (4-34) U/L Alkaline Phosphatase (38-126) U/L Troponin I <0.012 (0.000-0.034) ng/mL Total Protein (6.3-8.2) g/dL Albumin (3.5-5.0) g/dL Amylase (30-110) U/L Lipase (23-300) U/L Urine Color Light Yellow Urine Appearance Cloudy H (Clear) Urine pH 7.0 (5.0-8.0) Ur Specific [place] 1.014 (1.001-1.035) Urine Protein Trace H (Negative) Urine Glucose (UA) Negative (Negative) Urine Ketones Negative (Negative) Urine Blood Trace H (Negative) Urine Nitrite Negative (Negative) Urine Bilirubin Negative (Negative) Urine Urobilinogen <2.0 (<2.0) mg/dL Ur Leukocyte Esterase Large H (Negative) Urine RBC 53 H (0-5) /hpf Urine WBC 58 H (0-5) /hpf Urine WBC Clumps Occasional H (None) /hpf Urine Mucus Rare H (None) /hpf Disposition Clinical Impression: Abdominal pain, Urinary tract infection Disposition: OTHER INSTITUTION NOT DEFINED Condition: Fair Referrals: Jayy Tinsley MD [Primary Care Provider] - 1-2 days - Out of Hospital Transfer - Req. Specs Out of Hospital Transfer - Requested Specifics: Other Emergency Center
[2022-12-20 17:15] LABS: ALT 21 U/L (4-34); AST 21 U/L (14-36); African American GFR (CKD) >90 (>60 ml/min/1.73 sqM); Alkaline Phosphatase 55 U/L (38-126); Amylase 67 U/L (30-110); Anion Gap 6 mmol/L; Blood Urea Nitrogen 18 mg/dL (7-17); Calcium 8.1 mg/dL (8.4-10.2); Carbon Dioxide 23 mmol/L (22-30); Chloride 108 mmol/L (98-107); Glucose 80 mg/dL (74-99); Lipase 316 U/L (23-300); Non-African American GFR(CKD) 84 (>60 ml/min/1.73 sqM); Potassium 4.5 mmol/L (3.5-5.1); Sodium 137 mmol/L (137-145); Total Bilirubin 0.5 mg/dL (0.2-1.3); Total Protein 5.4 g/dL (6.3-8.2)
[2022-12-20 17:18] LABS: HCT 40.4 % (34.0-46.0); HGB 12.8 gm/dL (11.4-16.0); Hypochromasia Slight; MCH 31.7 pg (25.0-35.0); MCHC 31.6 g/dL (31.0-37.0); MCV 100.1 fL (80.0-100.0); Macrocytosis Slight; Mean Platelet Volume 7.2; Platelet Count 297 k/uL (150-450); RBC 4.03 m/uL (3.80-5.40); RDW 15.3 % (11.5-15.5)
[2022-12-20 17:34] LABS: WBC 1.8 k/uL (3.8-10.6)
[2022-12-20 18:15] LABS: Eosinophils # (M) 0.14 k/uL (0-0.7); Lymphocytes # (M) 0.72 k/uL (1.0-4.8); Monocytes # (M) 0.14 k/uL (0-1.0); Neutrophils # (M) 0.79 k/uL (1.3-7.7); Neutrophils % (M) 44 %; Nucleated Red Blood Cells 0 /100 WBC (0-0); Total Cells Counted 100
[2022-12-20 19:12] LABS: Appearance,Urine Cloudy (Clear); Bilirubin,Urine Negative (Negative); Blood,Urine Trace (Negative); Color,Urine Light Yellow; Glucose,Urine (UA) Negative (Negative); Ketones,Urine Negative (Negative); Leukocyte Esterase,Urine Large (Negative); Mucus,Urine Rare /hpf; Nitrite,Urine Negative (Negative); Protein,Urine Trace (Negative); RBC,Urine 53 /hpf (0-5); Specific Gravity,Urine 1.014 (1.001-1.035); Urobilinogen,Urine <2.0 mg/dL (<2.0); WBC,Urine 58 /hpf (0-5)
[2022-12-20 21:47] VITALS: PULSE 75
[2022-12-20] MEDS ORDERED: PIPERACILLIN-TAZOBACTAM 3.375 GM in SODIUM CHLORIDE 0.9% 100 ML IVPB STA (22:39)
[2022-12-20 22:54] VITALS: BP 155/85; TEMP 98
== END 2022-12-20 23:46 | disposition other institution (70) ==
LOC: EC 15:40
DX: N39.0 Urinary tract infection, site not specified (principal); J45.909 Unspecified asthma, uncomplicated; I10 Essential (primary) hypertension; M19.90 Unspecified osteoarthritis, unspecified site; E07.9 Disorder of thyroid, unspecified; F32.A Depression, unspecified; Z79.890 Hormone replacement therapy; Z79.899 Other long term (current) drug therapy; Z87.891 Personal history of nicotine dependence
CPT/HCPCS: 36415; 80053; 81001; 82150; 83605; 83690; 84484; 85025; 87040; 87086; 99285

== ENCOUNTER 2023-01-01 17:19 | Emergency (ER) | payer MEDICARE ==
[2023-01-01] MEDS ORDERED: ONDANSETRON 4 MG/2 ML VIAL IVP STA (17:35)
[2023-01-01] MEDS ORDERED: SODIUM CHLORIDE 0.9% 1,000 ML IV STA ×2 (17:35)
[2023-01-01 17:36] VITALS: TEMP 98.1
[2023-01-01 19:08] LABS: Anisocytosis Slight; Basophils % (A) 0 %; Eosinophils # (A) 0.1 k/uL (0-0.7); Eosinophils % (A) 2 %; HCT 34.7 % (34.0-46.0); HGB 10.6 gm/dL (11.4-16.0); Hypochromasia Slight; Lymphocytes # (A) 0.8 k/uL (1.0-4.8); Lymphocytes % (A) 9 %; MCH 30.5 pg (25.0-35.0); MCHC 30.4 g/dL (31.0-37.0); MCV 100.2 fL (80.0-100.0); Macrocytosis Slight; Mean Platelet Volume 7.8; Monocytes # (A) 0.3 k/uL (0-1.0); Monocytes % (A) 3 %; Neutrophils # (A) 7.3 k/uL (1.3-7.7); Neutrophils % (A) 85 %; Platelet Count 427 k/uL (150-450); RBC 3.46 m/uL (3.80-5.40); RDW 16.3 % (11.5-15.5); WBC 8.7 k/uL (3.8-10.6)
[2023-01-01] MEDS ORDERED: MORPHINE SULFATE 4 MG/ML SYRINGE IVP STA (20:01)
--- NOTE | 2023-01-01 20:09 | ED ---
Abdominal Pain HPI - General Source: EMS Mode of arrival: EMS Limitations: no limitations <Daniel Mccracken - Last Filed: 01/01/23 20:06> <Анна Clark - Last Filed: 01/02/23 02:23> - General Chief Complaint: Abdominal Pain Stated Complaint: Abd Pain Time Seen by Provider: 01/01/23 17:26 - History of Present Illness Initial Comments: This 87-year-old female presents with granddaughter with the complaint of some abdominal pain. This is diffuse in nature. She apparently just had her gallbladder out 8 days ago. She has had pain ever since and does have chronic pain issues but the pain seems worse over the last couple of days. Her oxycodone was increased from every 6 hours to every 4 hours. The granddaughter states that she does have some slight changes in mental status possibly due to the increased pain medication. The patient also is being treated for a slight urinary tract infection. There is been no fevers or chills. Patient states that she will vomit if she tries to eat. She is [facility] living at the [facility]. No other complaints or modifying factors. No diarrhea or constipation. (Daniel Mccracken) - Related Data Home Medications Medication Instructions Recorded Confirmed Levothyroxine Sodium [Synthroid] 50 mcg PO DAILY@0600 05/13/14 01/01/23 Pantoprazole Sodium [Protonix] 40 mg PO DAILY@0600 10/01/20 01/01/23 lisinopriL [Zestril] 20 mg PO DAILY@0800 10/01/20 01/01/23 Metoprolol Succinate (ER) [Toprol 25 mg PO DAILY@0800 12/05/22 01/01/23 XL] Acetaminophen Tab [Tylenol] 650 mg PO Q4H PRN 01/01/23 01/01/23 Ensure Enlive 237 ml PO DAILY@0800 01/01/23 01/01/23 Gabapentin [Neurontin] 300 mg PO Q8H 01/01/23 01/01/23 Magic Cup 1 dose PO BID@1200,1700 01/01/23 01/01/23 Magnesium Hydroxide [Milk of 7,200 mg PO DIRECTED PRN 01/01/23 01/01/23 Magnesia Concentrate] Na Phos,M-B/Na Phos,Di-Ba [Fleet 133 ml RECTAL DAILY PRN 01/01/23 01/01/23 Adult] bisacodyL [Dulcolax] 10 mg RECTAL DAILY PRN 01/01/23 01/01/23 oxyCODONE HCL [OxyIR] 5 mg PO Q4H PRN 01/01/23 01/01/23 Allergies Allergy/AdvReac Type Severity Reaction Status Date / Time No Known Allergies Allergy Verified 01/01/23 21:24 Review of Systems ROS Other: All systems not noted in ROS Statement are negative. <aDniel Mccracken - Last Filed: 01/01/23 20:06> ROS Other: All systems not noted in ROS Statement are negative. <Анна Clark - Last Filed: 01/02/23 02:23> ROS Statement: Those systems with pertinent positive or pertinent negative responses have been documented in the HPI. Past Medical History Past Medical History: Asthma, Fibromyalgia, Hypertension, Osteoarthritis (OA), Thyroid Disorder Additional Past Medical History / Comment(s): Neuropathy History of Any Multi-Drug Resistant Organisms: None Reported Past Surgical History: Appendectomy, Joint Replacement Additional Past Surgical History / Comment(s): RIGHT KNEE Past Anesthesia/Blood Transfusion Reactions: No Reported Reaction Past Psychological History: Depression Smoking Status: Former smoker Past Alcohol Use History: None Reported Past Drug Use History: None Reported - Past Family History Father Family Medical History: Cancer <Daniel Mccracken - Last Filed: 01/01/23 20:06> General Exam Limitations: no limitations <Daniel Mccracken - Last Filed: 01/01/23 20:06> - General Exam Comments Initial Comments: GENERAL: The patient is well nourished and well hydrated. VITAL SIGNS: Heart rate, blood pressure, respiratory rate reviewed as recorded in nurse's notes. EYES: Pupils are round and reactive. Extraocular movements are intact. No conjunctival / lid redness or swelling. ENT: No external evidence of injury, swelling, or ecchymosis. Airway is patent. Throat is clear. NECK: Nontender. No swelling or evidence of injury. No subcutaneous emphysema. Trachea is midline. No thyroid mass. HEART: Regular rate and rhythm. Good peripheral pulses. LUNGS/CHEST: Breath sounds clear and equal bilaterally. No rales, rhonchi, or wheezes. No ecchymosis, subcutaneous emphysema, or tenderness. ABDOMEN: Abdomen soft with mild tenderness. No palpable masses or organomegaly. No peritoneal signs. No abdominal wall swelling or ecchymosis. Drain present in the right upper quadrant. EXTREMITIES: No extremity tenderness. Normal muscle tone and function. No thoracolumbar tenderness. NEUROLOGIC: Sensation is grossly intact. Cranial nerve exam reveals face is symmetrical, tongue is midline, speech is clear. SKIN: No abrasions or ecchymosis is noted. No induration or masses noted. PSYCHIATRIC: Alert and oriented. Appropriate behavior and judgment. (Daniel Mccracken) Course Vital Signs 01/01/23 01/01/23 01/01/23 17:24 18:30 20:41 Temperature 98.1 F Pulse Rate 86 89 95 Respiratory 18 18 Rate Blood Pressure 140/77 137/82 124/77 O2 Sat by Pulse 96 94 L Oximetry 01/01/23 01/01/23 22:00 23:00 Temperature Pulse Rate 93 92 Respiratory 16 16 Rate Blood Pressure 116/65 108/66 O2 Sat by Pulse 94 L Oximetry Medical Decision Making - Lab Data Result diagrams: 01/01/23 18:14 <Daniel Mccracken - Last Filed: 01/01/23 20:06> - Lab Data Result diagrams: 01/01/23 18:14 01/01/23 20:32 <Анна Clark - Last Filed: 01/02/23 02:23> - Medical Decision Making The patient was seen and examined. All diagnostics were reviewed. IV is established. She does receive morphine 4 mg IV for pain relief. (Daniel Mccracken) Was pt. sent in by a medical professional or institution (JEANNE Abdi, MEDICAL RADIATION THERAPIST, urgent care, hospital, or penitentiary...) When possible be specific @ -No Did you speak to anyone other than the patient for history (EMS, parent, family, police, friend...)? What history was obtained from this source @ -Spoke with the granddaughter for history Did you review nursing and triage notes (agree or disagree)? Why? @ -I reviewed and agree with nursing and triage notes Were old charts reviewed (outside hosp., previous admission, EMS record, old EKG, old radiological studies, urgent care reports/EKG's, penitentiary records)? Report findings @ -I reviewed last ED visit were the patient was transferred down to [facility] Differential Diagnosis (chest pain, altered mental status, abdominal pain women, abdominal pain men, vaginal bleeding, weakness, fever, dyspnea, syncope, headache, dizziness, GI bleed, back pain, seizure, CVA, palpatations, mental health, musculoskeletal)? @ -Differential Altered Mental Status: Hypoglycemia, DKA, hypercapnia, ETOH, overdose, CO poisoning, trauma, myxedema coma, HTN encephalopathy, infection, encephalitis, psychosis, intercranial hemorrhage, hepatic encephalopathy, meningitis, CVA, this is not meant to be an all-inclusive list Differential Abdominal Pain Women: Appendicitis, Cholecystitis, diverticulosis, ischemic bowel, pancreatitis, hepatitis, UTI, gastroenteritis, AAA, incarcerated hernia, bowel obstruction, constipation, inflammatory bowel, hepatitis, peptic ulcer disease, splenic infarction, perforated viscus, vulvitis, ovarian torsion, PID, kidney stone, placenta abruption, this is not meant to be an all-inclusive list EKG interpreted by me (3pts min.). @ -Not done X-rays interpreted by me (1pt min.). @ -None done CT interpreted by me (1pt min.). @ -Yes and demonstrates fluid in the gallbladder fossa. Dilation of the intra- and extrahepatic ducts. Bladder diverticulum U/S interpreted by me (1pt. min.). @ -None done What testing was considered but not performed or refused? (CT, X-rays, U/S, labs)? Why? @ -None What meds were considered but not given or refused? Why? @ -None Did you discuss the management of the patient with other professionals (professionals i.e. , PA, MEDICAL RADIATION THERAPIST, lab, RT, psych nurse, social worker psychiatric, pathologist assistant, teacher, engineering officer, immigration case worker)? Give summary @ -Spoke with the primary care doctor in regards to admitting the patient at our facility. As patient is complaining of abdominal pain with ESPERANZA drain in place status post cholecystectomy 8 days ago at [facility], he refuses admission and states the patient needs to go back to the facility where her procedure was performed Was smoking cessation discussed for >3mins.? @ -No Was critical care preformed (if so, how long)? @ -No Were there social determinants of health that impacted care today? How? (Homelessness, low income, unemployed, alcoholism, drug addiction, transportation, low edu. Level, literacy, decrease access to med. care, custodial, rehab)? @ -No Was there de-escalation of care discussed even if they declined (Discuss DNR or withdrawal of care, Hospice)? DNR status @ -No What co-morbidities impacted this encounter? (DM, HTN, Smoking, COPD, CAD, Cancer, CVA, ARF, Chemo, Hep., AIDS, mental health diagnosis, sleep apnea, morbid obesity)? @ -Fibromyalgia Was patient admitted / discharged? Hospital course, mention meds given and route, prescriptions, significant lab abnormalities, going to OR and other pertinent info. @ -Patient was signed out to me from Dr. Mccracken awaiting CT report. CT demonstrates fluid in the gallbladder fossa. I called and spoke with the admitting physician, Dr. Tinsley to see if the patient could be admitted for IV antibiotics. Admitting physician refused stating that the patient needs to go back to [facility] as she recently had surgical intervention there. She is complaining of abdominal pain and still actively has a ESPERANZA drain in site from her surgery. I called and spoke with [facility]. Accepting physician is Dr. Serrano. Patient is agreeable to transfer. COBRA forms signed. She was accepted to the ER - [facility]. Undiagnosed new problem with uncertain prognosis? @ -yes Drug Therapy requiring intensive monitoring for toxicity (Heparin, Nitro, Insulin, Cardizem)? @ -No Were any procedures done? @ -No Diagnosis/symptom? @ -Acute abdominal pain, acute encephalopathy, acute UTI, status post cholecystectomy Acute, or Chronic, or Acute on Chronic? @ -acute Uncomplicated (without systemic symptoms) or Complicated (systemic symptoms)? @ -complicated Side effects of treatment? @ -No Exacerbation, Progression, or Severe Exacerbation? @ -No Poses a threat to life or bodily function? How? (Chest pain, USA, CT, pneumonia, PE, COPD, DKA, ARF, appy, cholecystitis, CVA, Diverticulitis, Homicidal, Suicidal, threat to staff... and all critical care pts) @ -No (Анна Clark) - Lab Data Lab Results 01/01/23 01/01/23 01/01/23 Range/Units 18:14 18:14 20:18 WBC 8.7 (3.8-10.6) k/uL RBC 3.46 L (3.80-5.40) m/uL Hgb 10.6 L (11.4-16.0) gm/dL Hct 34.7 (34.0-46.0) % MCV 100.2 H (80.0-100.0) fL MCH 30.5 (25.0-35.0) pg MCHC 30.4 L (31.0-37.0) g/dL RDW 16.3 H (11.5-15.5) % Plt Count 427 (150-450) k/uL MPV 7.8 Neutrophils % 85 % Lymphocytes % 9 % Monocytes % 3 % Eosinophils % 2 % Basophils % 0 % Neutrophils # 7.3 (1.3-7.7) k/uL Lymphocytes # 0.8 L (1.0-4.8) k/uL Monocytes # 0.3 (0-1.0) k/uL Eosinophils # 0.1 (0-0.7) k/uL Basophils # 0.0 (0-0.2) k/uL Hypochromasia Slight Anisocytosis Slight Macrocytosis Slight Sodium (137-145) mmol/L Potassium (3.5-5.1) mmol/L Chloride (98-107) mmol/L Carbon Dioxide (22-30) mmol/L Anion Gap mmol/L BUN (7-17) mg/dL Creatinine (0.52-1.04) mg/dL Est GFR (CKD-EPI)AfAm (>60 ml/min/1.73 sqM) Est GFR (CKD-EPI)NonAf (>60 ml/min/1.73 sqM) Glucose (74-99) mg/dL Plasma Lactic Acid John 1.2 (0.7-2.0) mmol/L Calcium (8.4-10.2) mg/dL Total Bilirubin (0.2-1.3) mg/dL AST (14-36) U/L ALT (4-34) U/L Alkaline Phosphatase (38-126) U/L Total Protein (6.3-8.2) g/dL Albumin (3.5-5.0) g/dL Lipase (23-300) U/L Urine Color Yellow Urine Appearance Turbid H (Clear) Urine pH 6.0 (5.0-8.0) Ur Specific Ulmer 1.020 (1.001-1.035) Urine Protein 1+ H (Negative) Urine Glucose (UA) Negative (Negative) Urine Ketones Negative (Negative) Urine Blood Moderate H (Negative) Urine Nitrite Negative (Negative) Urine Bilirubin Negative (Negative) Urine Urobilinogen <2.0 (<2.0) mg/dL Ur Leukocyte Esterase Large H (Negative) Urine RBC 16 H (0-5) /hpf Urine WBC >182 H (0-5) /hpf Urine WBC Clumps Many H (None) /hpf Ur Squamous Epith Cells 3 (0-4) /hpf Urine Bacteria Few H (None) /hpf Urine Mucus Occasional H (None) /hpf 01/01/23 Range/Units 20:32 WBC (3.8-10.6) k/uL RBC (3.80-5.40) m/uL Hgb (11.4-16.0) gm/dL Hct (34.0-46.0) % MCV (80.0-100.0) fL MCH (25.0-35.0) pg MCHC (31.0-37.0) g/dL RDW (11.5-15.5) % Plt Count (150-450) k/uL MPV Neutrophils % % Lymphocytes % % Monocytes % % Eosinophils % % Basophils % % Neutrophils # (1.3-7.7) k/uL Lymphocytes # (1.0-4.8) k/uL Monocytes # (0-1.0) k/uL Eosinophils # (0-0.7) k/uL Basophils # (0-0.2) k/uL Hypochromasia Anisocytosis Macrocytosis Sodium 133 L (137-145) mmol/L Potassium 4.9 (3.5-5.1) mmol/L Chloride 104 (98-107) mmol/L Carbon Dioxide 23 (22-30) mmol/L Anion Gap 6 mmol/L BUN 18 H (7-17) mg/dL Creatinine 0.54 (0.52-1.04) mg/dL Est GFR (CKD-EPI)AfAm >90 (>60 ml/min/1.73 sqM) Est GFR (CKD-EPI)NonAf 86 (>60 ml/min/1.73 sqM) Glucose 101 H (74-99) mg/dL Plasma Lactic Acid John (0.7-2.0) mmol/L Calcium 7.8 L (8.4-10.2) mg/dL Total Bilirubin 0.7 (0.2-1.3) mg/dL AST 37 H (14-36) U/L ALT 28 (4-34) U/L Alkaline Phosphatase 79 (38-126) U/L Total Protein 5.0 L (6.3-8.2) g/dL Albumin 2.7 L (3.5-5.0) g/dL Lipase 52 (23-300) U/L Urine Color Urine Appearance (Clear) Urine pH (5.0-8.0) Ur Specific Ulmer (1.001-1.035) Urine Protein (Negative) Urine Glucose (UA) (Negative) Urine Ketones (Negative) Urine Blood (Negative) Urine Nitrite (Negative) Urine Bilirubin (Negative) Urine Urobilinogen (<2.0) mg/dL Ur Leukocyte Esterase (Negative) Urine RBC (0-5) /hpf Urine WBC (0-5) /hpf Urine WBC Clumps (None) /hpf Ur Squamous Epith Cells (0-4) /hpf Urine Bacteria (None) /hpf Urine Mucus (None) /hpf Disposition <Daniel Mccracken - Last Filed: 01/01/23 20:06> Is patient prescribed a controlled substance at d/c from ED?: No Time of Disposition: 02:08 - Out of Hospital Transfer - Req. Specs Out of Hospital Transfer - Requested Specifics: Other Emergency Center ([facility]) <Анна Clark - Last Filed: 01/02/23 02:23> Clinical Impression: Abdominal pain, History of cholecystectomy Disposition: OTHER INSTITUTION NOT DEFINED Condition: Stable Referrals: Jayy Tinsley MD [Primary Care Provider] - 1-2 days
[2023-01-01 21:18] LABS: ALT 28 U/L (4-34); AST 37 U/L (14-36); African American GFR (CKD) >90 (>60 ml/min/1.73 sqM); Albumin 2.7 g/dL (3.5-5.0); Alkaline Phosphatase 79 U/L (38-126); Anion Gap 6 mmol/L; Blood Urea Nitrogen 18 mg/dL (7-17); Calcium 7.8 mg/dL (8.4-10.2); Carbon Dioxide 23 mmol/L (22-30); Chloride 104 mmol/L (98-107); Glucose 101 mg/dL (74-99); Lipase 52 U/L (23-300); Non-African American GFR(CKD) 86 (>60 ml/min/1.73 sqM); Potassium 4.9 mmol/L (3.5-5.1); Sodium 133 mmol/L (137-145); Total Bilirubin 0.7 mg/dL (0.2-1.3)
[2023-01-01 21:22] LABS: Appearance,Urine Turbid (Clear); Bacteria,Urine Few /hpf; Bilirubin,Urine Negative (Negative); Blood,Urine Moderate (Negative); Color,Urine Yellow; Glucose,Urine (UA) Negative (Negative); Ketones,Urine Negative (Negative); Leukocyte Esterase,Urine Large (Negative); Mucus,Urine Occasional /hpf; Nitrite,Urine Negative (Negative); Protein,Urine 1+ (Negative); RBC,Urine 16 /hpf (0-5); Squamous Epithelial Cell,Urine 3 /hpf (0-4); Urobilinogen,Urine <2.0 mg/dL (<2.0); WBC,Urine >182 /hpf (0-5)
--- NOTE | 2023-01-01 22:15 | CT ---
EXAMINATION TYPE: CT abdomen pelvis w con CT DLP: 532 mGycm, Automated exposure control for dose reduction was used. DATE OF EXAM: 01/01/2023 9:51 PM COMPARISON: 12/06/2022, 12/09/2022, 12/05/2022 CLINICAL INDICATION:Female, 87 years old with history of Abdominal pain, acute, nonlocalized; abdomin al pain, AMS TECHNIQUE: Axial CT of the ;CT abdomen pelvis w con;Sagittal and coronal reformats were created on a separate workstation. Contrast used:100 CC mL of Isovue 300 with IV Contrast, (none if empty) Oral contrast used: without Oral Contrast (none if empty) FINDINGS: LOWER CHEST: Unremarkable ABDOMEN LIVER: Unremarkable GALLBLADDER AND BILE DUCTS: There is ductal dilation of the extrahepatic and central intrahepatic trisha iary system. Multiple gallstones are present. PANCREAS: Unremarkable. SPLEEN: Unremarkable. ADRENAL GLANDS: Unremarkable. KIDNEYS AND URETERS: No evidence of hydronephrosis or renal calculus. The ureters are unremarkable. PELVIS BLADDER: Nondistended with Morley catheter in place. Scattered diverticula are present some of which a re decompressed due to Morley catheter placement. REPRODUCTIVE: Unremarkable. ABDOMEN & PELVIS STOMACH AND BOWEL: No evidence of bowel obstruction. Second/third portion duodenal diverticulum. Larg e hiatal hernia. Scattered colonic diverticulosis. PERITONEUM/RETROPERITONEUM: No evidence of pneumoperitoneum. Catheter enters the right abdomen and te rminates along the left lower/mid abdomen.. There appears to be an organizing fluid collection on the expected location of the gallbladder which appears to have been surgically removed. Additional fluid collection the left pelvis measuring at least 2.5 x 1.6 x 5.0 cm. Which is not definitely seen on pr ior on 12/09/2022. Given markedly distended urinary bladder diverticula on prior this could represent a diverticula that has been collapsed due to Morley catheter. Mesenteric fat stranding likely secondary to other the other processes in the abdomen. Mesenteric maday cified body noted. VASCULATURE: Moderate atherosclerotic calcifications are present throughout the abdominal aorta and i ts branches. No evidence of aortic aneurysm. MUSCULOSKELETAL: No acute osseous abnormalities. Moderate disc degeneration changes are present throu ghout the thoracolumbar spine. LYMPH NODES: No gross evidence for lymphadenopathy. SOFT TISSUE/ABDOMINAL WALL: Unremarkable IMPRESSION: 1. Organizing fluid collection near the gallbladder fossa. Correlate with history of cholecystectomy . If there is has not been any surgeries, this can be a decompressed gallbladder. If there was a rece nt surgery this could represent complex fluid such as in the setting of abscess formation. 2. Another organizing fluid collection in the left pelvis which could is favored represent a decompr essed bladder diverticula. Considered delayed CT imaging to rule out bladder diverticula. 3. Dilation of the intrahepatic and extrahepatic biliary system. This can be further evaluated with MRCP as clinically warranted. The previous biliary stent from 12/04/2022 has been removed. 4. Large hiatal hernia.
[2023-01-01] MEDS ORDERED: MORPHINE SULFATE 4 MG/ML SYRINGE IV PRN (23:57)
[2023-01-02 01:55] VITALS: RESP 16
[2023-01-02 02:42] VITALS: BP 114/60; PULSE 89
== END 2023-01-02 03:05 | disposition other institution (70) ==
LOC: EC 17:19
DX: K44.9 Diaphragmatic hernia without obstruction or gangrene (principal); N32.3 Diverticulum of bladder; I10 Essential (primary) hypertension; J45.909 Unspecified asthma, uncomplicated; E07.9 Disorder of thyroid, unspecified; F32.A Depression, unspecified; M19.90 Unspecified osteoarthritis, unspecified site; Z79.890 Hormone replacement therapy; Z79.899 Other long term (current) drug therapy; Z87.891 Personal history of nicotine dependence; Z90.49 Acquired absence of other specified parts of digestive tract
CPT/HCPCS: 36415; 80053; 83605; 83690; 85025; 81001; 87040; 87086; 87077; 87186; 74177; 99285; 96365; 96375 ×2; 96361 ×7; 96376; J2270 ×2; J2405; J0696; Q9967

== ENCOUNTER 2023-01-14 11:24 | Inpatient (IN) | payer MEDICARE ==
[2023-01-14] MEDS ORDERED: SODIUM CHLORIDE 0.9% 500 ML 500 ML IV STA (12:19)
[2023-01-14] MEDS ORDERED: SODIUM CHLORIDE 0.9% 1,000 ML IV STA (12:19)
[2023-01-14] MEDS ORDERED: ONDANSETRON 4 MG/2 ML VIAL IVP STA (12:19)
--- NOTE | 2023-01-14 12:27 | ED ---
General Adult HPI - General Source: patient, EMS, RN notes reviewed, old records reviewed Mode of arrival: EMS Limitations: no limitations <David Jiménez - Last Filed: 01/14/23 14:54> - History of Present Illness -: days(s) Location: abdomen Radiation: non-radiation Severity scale (1-10): 4 Quality: aching Consistency: intermittent Improves with: none Worsens with: none Associated Symptoms: denies other symptoms Treatments Prior to Arrival: none <David Lua - Last Filed: 01/19/23 22:43> - General Chief complaint: Abdominal Pain Time Seen by Provider: 01/14/23 12:05 - History of Present Illness Initial comments: This is an 87-year-old female [facility]. Patient comes in because of vomiting and diarrhea. Patient had surgery about 3 weeks ago at [facility] and had a colectomy. Patient states she has a little abdominal cramping but no point tenderness. Patient denies any fever chills. Patient denies any chest pain difficulty breathing. Patient states the symptoms have been ongoing for 3 days (David Jiménez) 87 female to the emergency department for evaluation abdominal pain with nausea vomiting and diarrhea with outpatient today recent surgery, comes in with Morley catheter placed (David Lua) - Related Data Home Medications Medication Instructions Recorded Confirmed Levothyroxine Sodium [Synthroid] 50 mcg PO DAILY@0600 05/13/14 01/14/23 Pantoprazole Sodium [Protonix] 40 mg PO DAILY@0600 10/01/20 01/14/23 lisinopriL [Zestril] 20 mg PO DAILY@0800 10/01/20 01/14/23 Metoprolol Succinate (ER) [Toprol 25 mg PO DAILY@0800 12/05/22 01/14/23 XL] Acetaminophen Tab [Tylenol] 650 mg PO Q4H PRN 01/01/23 01/14/23 Ensure Enlive 120 ml PO DAILY@0800 01/01/23 01/14/23 Gabapentin [Neurontin] 300 mg PO TID@0600,1400,2200 01/01/23 01/14/23 Magnesium Hydroxide [Milk of 7,200 mg PO Q48H PRN 01/01/23 01/14/23 Magnesia Concentrate] Na Phos,M-B/Na Phos,Di-Ba [Fleet 133 ml RECTAL DAILY PRN 01/01/23 01/14/23 Adult] bisacodyL [Dulcolax] 10 mg RECTAL DAILY PRN 01/01/23 01/14/23 Loperamide HCl [Imodium A-D] 4 mg PO BID PRN 01/14/23 01/14/23 Ondansetron [Zofran] 4 mg PO Q8HR PRN 01/14/23 01/14/23 methocarbamoL [Robaxin-750] 750 mg PO TID@0800,1400,2100 01/14/23 01/14/23 Previous Rx's Medication Instructions Recorded Gabapentin [Neurontin] 300 mg PO TID@0600,1400,2200 #90 01/17/23 cap cefUROXime axetiL [Ceftin] 500 mg PO BID #8 tab 01/17/23 oxyCODONE HCL [OxyIR] 5 mg PO Q4H PRN #180 tab 01/17/23 Allergies Allergy/AdvReac Type Severity Reaction Status Date / Time No Known Allergies Allergy Verified 01/14/23 12:16 Review of Systems ROS Other: All systems not noted in ROS Statement are negative. <David Jiménez - Last Filed: 01/14/23 14:54> ROS Other: All systems not noted in ROS Statement are negative. <David Lua - Last Filed: 01/19/23 22:43> ROS Statement: Those systems with pertinent positive or pertinent negative responses have been documented in the HPI. Past Medical History Past Medical History: Asthma, Fibromyalgia, Hypertension, Osteoarthritis (OA), Thyroid Disorder Additional Past Medical History / Comment(s): Neuropathy History of Any Multi-Drug Resistant Organisms: VRE Date of last positivie culture/infection: 01/01/23 MDRO Source:: Urine Past Surgical History: Appendectomy, Joint Replacement Additional Past Surgical History / Comment(s): RIGHT KNEE Past Anesthesia/Blood Transfusion Reactions: No Reported Reaction Past Psychological History: Depression Smoking Status: Former smoker Past Alcohol Use History: None Reported Past Drug Use History: None Reported - Past Family History Father Family Medical History: Cancer <David Jiménez - Last Filed: 01/14/23 14:54> General Exam Limitations: no limitations <David Jiménez - Last Filed: 01/14/23 14:54> General appearance: alert, in no apparent distress Head exam: Present: atraumatic, normocephalic, normal inspection Eye exam: Present: normal appearance, PERRL, EOMI. Absent: scleral icterus, conjunctival injection, periorbital swelling ENT exam: Present: normal exam, mucous membranes moist Neck exam: Present: normal inspection. Absent: tenderness, meningismus, lymph adenopathy Respiratory exam: Present: normal lung sounds bilaterally. Absent: respiratory distress, wheezes, rales, rhonchi, stridor Cardiovascular Exam: Present: regular rate, normal rhythm, normal heart sounds. Absent: systolic murmur, diastolic murmur, rubs, gallop, clicks GI/Abdominal exam: Present: soft, tenderness (Generalized with diffuse tenderness), normal bowel sounds. Absent: distended, guarding, rebound, rigid Extremities exam: Present: normal inspection, full ROM, normal capillary refill. Absent: tenderness, pedal edema, joint swelling, calf tenderness Back exam: Present: normal inspection Neurological exam: Present: alert, oriented X3, CN II-XII intact Psychiatric exam: Present: normal affect, normal mood Skin exam: Present: warm, dry, intact, normal color. Absent: rash <David Lua - Last Filed: 01/19/23 22:43> - General Exam Comments Initial Comments: GENERAL: Patient is well-developed and well-nourished. Patient is nontoxic and well- hydrated and is in mild distress. ENT: Neck is soft and supple. No significant lymphadenopathy is noted. Oropharynx is clear. Dry mucous membranes. Neck has full range of motion without eliciting any pain. EYES: The sclera were anicteric and conjunctiva were pink and moist. Extraocular movements were intact and pupils were equal round and reactive to light. Eyelids were unremarkable. PULMONARY: Unlabored respirations. Good breath sounds bilaterally. No audible rales rhonchi or wheezing was noted. CARDIOVASCULAR: There is a regular rate and rhythm without any murmurs gallops or rubs. ABDOMEN: Minimal right-sided tenderness. SKIN: Skin is clear with no lesions or rashes and otherwise unremarkable. NEUROLOGIC: Patient is alert and oriented x3. Cranial nerves II through XII are grossly intact. Motor and sensory are also intact. Normal speech, volume and content. Symmetrical smile. MUSCULOSKELETAL: Normal extremities with adequate strength and full range of motion. LYMPHATICS: No significant lymphadenopathy is noted PSYCHIATRIC: Normal psychiatric evaluation. (David Jiménez) Course <David Lua - Last Filed: 01/19/23 22:43> Vital Signs 01/14/23 01/14/23 01/14/23 11:53 13:19 17:58 Temperature 98.9 F Pulse Rate 107 H 101 H 102 H Pulse Rate [ Pulse Oximetery ] Respiratory 16 18 18 Rate Blood Pressure 91/60 105/66 118/75 Blood Pressure [Right Arm] O2 Sat by Pulse 98 95 96 Oximetry 01/14/23 01/14/23 01/15/23 19:44 20:00 02:18 Temperature 98.7 F 98.7 F Pulse Rate Pulse Rate [ 108 H 108 H 104 H Pulse Oximetery ] Respiratory 12 12 Rate Blood Pressure Blood Pressure 115/66 137/82 [Right Arm] O2 Sat by Pulse 94 L 91 L Oximetry 01/15/23 01/15/23 01/15/23 07:30 10:48 13:19 Temperature 97.8 F 98.2 F Pulse Rate 99 99 95 Pulse Rate [ Pulse Oximetery ] Respiratory 16 18 18 Rate Blood Pressure 132/87 114/78 128/80 Blood Pressure [Right Arm] O2 Sat by Pulse 95 95 98 Oximetry - Reevaluation(s) Reevaluation #1: Records reviewed (David Lua) Reevaluation #2: Patient symptoms improved (David Lua) Reevaluation #3: Patient informed of results questions answered (David Lua) Reevaluation #4: Was pt. sent in by a medical professional or institution (, PA, FROG CATCHER, urgent care, hospital, or [facility]...) When possible be specific @ -no Did you speak to anyone other than the patient for history (EMS, parent, family, police, friend...)? What history was obtained from this source @ -no Did you review nursing and triage notes (agree or disagree)? Why? @ -agree Are old charts reviewed (outside hosp., previous admission, EMS record, old EKG, old radiological studies, urgent care reports/EKG's, [facility] records)? Report findings @ -yes Differential Diagnosis (chest pain, altered mental status, abdominal pain women, abdominal pain men, vaginal bleeding, weakness, fever, dyspnea, syncope, headache, dizziness, GI bleed, back pain, seizure, CVA, palpatations, mental health, musculoskeletal)? @ -prior EKG interpreted by me (3pts min.). @ -yes X-rays interpreted by me (1pt min.). @ -no CT interpreted by me (1pt min.). @ -yes U/S interpreted by me (1pt. min.). @ -no What testing was considered but not performed or refused? (CT, X-rays, U/S, labs)? Why? @ -none What meds were considered but not given or refused? Why? @ -none Did you discuss the management of the patient with other professionals (professionals i.e. , PA, FROG CATCHER, lab, RT, psych nurse, psychiatric social worker supervisor, international sales manager, teacher, loan servicing officer, case advocate)? Give summary @ -no Was smoking cessation discussed for >3mins.? @ -no Was critical care preformed (if so, how long)? @ -no Were there social determinants of health that impacted care today? How? (Homelessness, low income, unemployed, alcoholism, drug addiction, transportation, low edu. Level, literacy, decrease access to med. care, senior care, re hab)? @ -none Was there de-escalation of care discussed even if they declined (Discuss DNR or withdrawal of care, Hospice)? DNR status @ -no What co-morbidities impacted this encounter? (DM, HTN, Smoking, COPD, CAD, Cancer, CVA, ARF, Chemo, Hep., AIDS, mental health diagnosis, sleep apnea, morbid obesity)? @ -none Was patient admitted / discharged? Hospital course, mention meds given and route, prescriptions, significant lab abnormalities, going to OR and other pertinent info. @ - 87 female to the emergency department with nonspecific abdominal pain. Patient does have multiple findings of postsurgical changes on her computed tomography scan but does have indwelling Morley catheter with recurrent urinary tract infection, for catheter was removed and patient placed on antibiotics. Patient will be advanced to see if catheter is needed are not Admitted Undiagnosed new problem with uncertain prognosis? @ -no Drug Therapy requiring intensive monitoring for toxicity (Heparin, Nitro, Ins ulin, Cardizem)? @ -no Were any procedures done? @ -no Diagnosis/symptom? @ -Abdominal pain, postoperative, Morley catheter placed, urinary tract infection Acute, or Chronic, or Acute on Chronic? @ -Acute Uncomplicated (without systemic symptoms) or Complicated (systemic symptoms)? @ -Complicated Side effects of treatment? @ -no Exacerbation, Progression, or Severe Exacerbation? @ -exacerbation Poses a threat to life or bodily function? How? (Chest pain, USA, PR, pneumonia, PE, COPD, DKA, ARF, appy, cholecystitis, CVA, Diverticulitis, Homicidal, Suicidal, threat to staff... and all critical care pts) @ -yes with significant extremes of age and postoperative patient (David Ibrahim) Reevaluation #5: 12/Differential Abdominal Pain Women: Appendicitis, Cholecystitis, diverticulosis, ischemic bowel, pancreatitis, hepatitis, UTI, gastroenteritis, AAA, incarcerated hernia, bowel obstruction, constipation, inflammatory bowel, hepatitis, peptic ulcer disease, splenic infarction, perforated viscus, vulvitis, ovarian torsion, PID, kidney stone, placenta abruption, this is not meant to be an all-inclusive list2 (David Lua) - Consultations Consultation #1: Spoke with Dr. Tinsley who agrees to admit this patient (David Lua) Medical Decision Making - Lab Data Result diagrams: 01/14/23 12:36 01/14/23 12:36 <David Jiménez - Last Filed: 01/14/23 14:54> - Lab Data Result diagrams: 01/17/23 05:43 01/17/23 05:43 - Radiology Data Radiology results: report reviewed (CT of the abdomen and pelvis does show significant postsurgical changes), image reviewed <David Lua - Last Filed: 01/19/23 22:43> - Medical Decision Making Was pt. sent in by a medical professional or institution (, PA, FROG CATCHER, urgent care, hospital, or [facility]...) When possible be specific @ -[facility] sent the patient in Did you speak to anyone other than the patient for history (EMS, parent, family, police, friend...)? What history was obtained from this source @ -[No] Did you review nursing and triage notes (agree or disagree)? Why? @ -[I reviewed and agree with nursing and triage notes] Were old charts reviewed (outside hosp., previous admission, EMS record, old EKG, old radiological studies, urgent care reports/EKG's, [facility] records)? Report findings @ -I reviewed the prior charts of prior lab work on this patient Differential Diagnosis (chest pain, altered mental status, abdominal pain women, abdominal pain men, vaginal bleeding, weakness, fever, dyspnea, syncope, headache, dizziness, GI bleed, back pain, seizure, CVA, palpatations, mental health, musculoskeletal)? @ -Differential Abdominal Pain Women: Postoperative abdominal infection, Appendicitis, Cholecystitis, diverticulosis, ischemic bowel, pancreatitis, hepatitis, UTI, gastroenteritis, AAA, incarcerated hernia, bowel obstruction, constipation, inflammatory bowel, hepatitis, peptic ulcer disease, splenic infarction, perforated viscus, vulvitis, ovarian torsion, PID, kidney stone, placenta abruption, this is not meant to be an all-inclusive list EKG interpreted by me (3pts min.). @ -[As above] X-rays interpreted by me (1pt min.). @ -[None done] CT interpreted by me (1pt min.). @ -[None done] U/S interpreted by me (1pt. min.). @ -[None done] What testing was considered but not performed or refused? (CT, X-rays, U/S, labs)? Why? @ -[None] What meds were considered but not given or refused? Why? @ -[None] Did you discuss the management of the patient with other professionals (professionals i.e. , PA, FROG CATCHER, lab, RT, psych nurse, psychiatric social worker supervisor, international sales manager, teacher, loan servicing officer, case advocate)? Give summary @ -[No] Was smoking cessation discussed for >3mins.? @ -[No] Was critical care preformed (if so, how long)? @ -[No] Were there social determinants of health that impacted care today? How? (Homelessness, low income, unemployed, alcoholism, drug addiction, transportation, low edu. Level, literacy, decrease access to med. care, senior care, rehab)? @ -[No] Was there de-escalation of care discussed even if they declined (Discuss DNR or withdrawal of care, Hospice)? DNR status @ -[No] What co-morbidities impacted this encounter? (DM, HTN, Smoking, COPD, CAD, Cancer, CVA, ARF, Chemo, Hep., AIDS, mental health diagnosis, sleep apnea, morbid obesity)? @ -[None] Was patient admitted / discharged? Hospital course, mention meds given and route, prescriptions, significant lab abnormalities, going to OR and other pertinent info. @ -Dr. Lua will be taking over the care of this patient at 3 PM (David Jiménez) 87 female to the emergency department with nonspecific abdominal pain. Patient does have multiple findings of postsurgical changes on her computed tomography scan but does have indwelling Morley catheter with recurrent urinary tract infection, for catheter was removed and patient placed on antibiotics. Patient will be advanced to see if catheter is needed are not (David Lua) - Lab Data Lab Results 01/14/23 01/14/23 01/14/23 Range/Units 12:36 12:36 12:36 WBC 17.9 H (3.8-10.6) k/uL RBC 3.30 L (3.80-5.40) m/uL Hgb 10.6 L (11.4-16.0) gm/dL Hct 33.7 L (34.0-46.0) % MCV 102.3 H (80.0-100.0) fL MCH 32.2 (25.0-35.0) pg MCHC 31.4 (31.0-37.0) g/dL RDW 16.4 H (11.5-15.5) % Plt Count 319 (150-450) k/uL MPV 8.0 Neutrophils % 91 % Lymphocytes % 4 % Monocytes % 4 % Eosinophils % 0 % Basophils % 0 % Neutrophils # 16.4 H (1.3-7.7) k/uL Lymphocytes # 0.7 L (1.0-4.8) k/uL Monocytes # 0.7 (0-1.0) k/uL Eosinophils # 0.0 (0-0.7) k/uL Basophils # 0.0 (0-0.2) k/uL Hypochromasia Moderate Anisocytosis Slight Macrocytosis Moderate Sodium 132 L (137-145) mmol/L Potassium 4.6 (3.5-5.1) mmol/L Chloride 99 (98-107) mmol/L Carbon Dioxide 23 (22-30) mmol/L Anion Gap 10 mmol/L BUN 21 H (7-17) mg/dL Creatinine 0.57 (0.52-1.04) mg/dL Est GFR (CKD-EPI)AfAm >90 (>60 ml/min/1.73 sqM) Est GFR (CKD-EPI)NonAf 85 (>60 ml/min/1.73 sqM) Glucose 99 (74-99) mg/dL Lactic Ac Sepsis Rflx Plasma Lactic Acid John 2.6 H* (0.7-2.0) mmol/L Calcium 8.1 L (8.4-10.2) mg/dL Total Bilirubin 0.7 (0.2-1.3) mg/dL AST 19 (14-36) U/L ALT 15 (4-34) U/L Alkaline Phosphatase 77 (38-126) U/L Total Protein 5.4 L (6.3-8.2) g/dL Albumin 2.8 L (3.5-5.0) g/dL Amylase <30 L (30-110) U/L Lipase 13 L (23-300) U/L 01/14/ Range/Units 13:02 WBC (3.8-10.6) k/uL RBC (3.80-5.40) m/uL Hgb (11.4-16.0) gm/dL Hct (34.0-46.0) % MCV (80.0-100.0) fL MCH (25.0-35.0) pg MCHC (31.0-37.0) g/dL RDW (11.5-15.5) % Plt Count (150-450) k/uL MPV Neutrophils % % Lymphocytes % % Monocytes % % Eosinophils % % Basophils % % Neutrophils # (1.3-7.7) k/uL Lymphocytes # (1.0-4.8) k/uL Monocytes # (0-1.0) k/uL Eosinophils # (0-0.7) k/uL Basophils # (0-0.2) k/uL Hypochromasia Anisocytosis Macrocytosis Sodium (137-145) mmol/L Potassium (3.5-5.1) mmol/L Chloride (98-107) mmol/L Carbon Dioxide (22-30) mmol/L Anion Gap mmol/L BUN (7-17) mg/dL Creatinine (0.52-1.04) mg/dL Est GFR (CKD-EPI)AfAm (>60 ml/min/1.73 sqM) Est GFR (CKD-EPI)NonAf (>60 ml/min/1.73 sqM) Glucose (74-99) mg/dL Lactic Ac Sepsis Rflx Y Plasma Lactic Acid John (0.7-2.0) mmol/L Calcium (8.4-10.2) mg/dL Total Bilirubin (0.2-1.3) mg/dL AST (14-36) U/L ALT (4-34) U/L Alkaline Phosphatase (38-126) U/L Total Protein (6.3-8.2) g/dL Albumin (3.5-5.0) g/dL Amylase (30-110) U/L Lipase (23-300) U/L Disposition <David Jiménez - Last Filed: 01/14/23 14:54> Is patient prescribed a controlled substance at d/c from ED?: No Time of Disposition: 16:05 <David Lua - Last Filed: 01/19/23 22:43> Clinical Impression: Abdominal pain, Dehydration, Gastroenteritis, Diarrhea, Urinary tract infection Narrative: Indwelling Morley Catheter (remove?) (David Lua) Disposition: ADMITTED IP TO THIS HOSP Condition: Fair
[2023-01-14 12:56] LABS: ALT 15 U/L (4-34); AST 19 U/L (14-36); African American GFR (CKD) >90 (>60 ml/min/1.73 sqM); Albumin 2.8 g/dL (3.5-5.0); Alkaline Phosphatase 77 U/L (38-126); Amylase <30 U/L (30-110); Anion Gap 10 mmol/L; Blood Urea Nitrogen 21 mg/dL (7-17); Calcium 8.1 mg/dL (8.4-10.2); Carbon Dioxide 23 mmol/L (22-30); Chloride 99 mmol/L (98-107); Glucose 99 mg/dL (74-99); Lipase 13 U/L (23-300); Non-African American GFR(CKD) 85 (>60 ml/min/1.73 sqM); Potassium 4.6 mmol/L (3.5-5.1); Sodium 132 mmol/L (137-145); Total Bilirubin 0.7 mg/dL (0.2-1.3); Total Protein 5.4 g/dL (6.3-8.2)
--- NOTE | 2023-01-14 13:02 | XR ---
EXAMINATION TYPE: XR KUB DATE OF EXAM: 01/14/2023 COMPARISON: NONE HISTORY: Pain TECHNIQUE: One view abdominal series FINDINGS: The osseous structures are intact. The bowel gas pattern is nonspecific. Lung bases are clear. Degen erative and scoliotic curvature the spine. Calcifications in the pelvis are nonspecific. Bilateral hi p arthropathy greater on the left correlate for femoral acetabular impingement. Arthropathy of the sy mphysis pubis. Diffuse osteopenia. IMPRESSION: 1. Nonspecific abdomen.
[2023-01-14 13:37] LABS: Anisocytosis Slight; Basophils % (A) 0 %; Eosinophils % (A) 0 %; HCT 33.7 % (34.0-46.0); HGB 10.6 gm/dL (11.4-16.0); Hypochromasia Moderate; Lymphocytes # (A) 0.7 k/uL (1.0-4.8); Lymphocytes % (A) 4 %; MCH 32.2 pg (25.0-35.0); MCHC 31.4 g/dL (31.0-37.0); MCV 102.3 fL (80.0-100.0); Macrocytosis Moderate; Monocytes # (A) 0.7 k/uL (0-1.0); Monocytes % (A) 4 %; Neutrophils # (A) 16.4 k/uL (1.3-7.7); Neutrophils % (A) 91 %; Platelet Count 319 k/uL (150-450); RDW 16.4 % (11.5-15.5); WBC 17.9 k/uL (3.8-10.6)
--- NOTE | 2023-01-14 15:20 | CT ---
EXAMINATION TYPE: CT abdomen pelvis w con DATE OF EXAM: 01/14/2023 COMPARISON: 01/01/2023 HISTORY: 3 weeks post op colectomy pos infection [id number] CT DLP: 435.1 mGycm CONTRAST: CT scan of the abdomen and pelvis is performed without Oral Contrast and with IV Contrast, patient in jected with 80 mL of Isovue 300. FINDINGS: LUNG BASES-: No visible nodule. No infiltrate. Moderate to large paraesophageal hiatal hernia. LIVER/GB: Again noted is thick walled structure within the gallbladder fossa measuring 4.5 x 1.7 cm m ay reflect thickened abnormal gallbladder versus abnormal collection within the gallbladder fossa in a patient who may be status post cholecystectomy. There is intra and extrahepatic biliary ductal dila tation. No space occupying hepatic lesion. PANCREAS: No inflammation. No distinct mass. SPLEEN: No splenic enlargement. No lesion seen. ADRENALS: No nodule. No thickening. KIDNEYS/BLADDER: No hydronephrosis. No nephrolithiasis. No distinct renal mass. Morley catheter not ed with air within the urinary bladder lumen. Suspected diverticulum adjacent to the urinary bladder to the left of midline posteriorly. There is thickening of the urinary bladder wall suspicious for in fection. At the 1:00 position directly adjacent to the urinary bladder air is an additional collectio n with thick wall and air-fluid level measuring 5.2 x 3.4 x 5.0 cm which could reflect infected diver ticulum however I cannot exclude enterovesical fistula. BOWEL: There is diffuse colonic wall thickening greatest involving the right hemicolon. The findings are suspicious for pseudomembranous colitis. Vascular or inflammatory etiologies are not excluded. GENITAL ORGANS: No gross abnormality. LYMPH NODES: No greater than 1cm abdominal or pelvic lymph nodes are appreciated. AORTA: No significant abnormality. OSSEOUS STRUCTURES: No significant abnormality is seen. OTHER: No significant additional abnormality is seen. IMPRESSION: 1. Morley catheter noted with air within the urinary bladder lumen. Suspected diverticulum adjacent to the urinary bladder to the left of midline posteriorly. There is thickening of the urinary bladder w all suspicious for infection. At the 1:00 position directly adjacent to the urinary bladder air is an additional collection with thick wall and air-fluid level measuring 5.2 x 3.4 x 5.0 cm which could r eflect infected diverticulum however I cannot exclude enterovesical fistula. 2.There is diffuse colonic wall thickening greatest involving the right hemicolon. The findings are s uspicious for pseudomembranous colitis. Vascular or inflammatory etiologies are not excluded. 3.thick walled structure within the gallbladder fossa measuring 4.5 x 1.7 cm may reflect thickened ab normal gallbladder versus abnormal collection within the gallbladder fossa in a patient who may be st atus post cholecystectomy. There is intra and extrahepatic biliary ductal dilatation.
[2023-01-14] MEDS ORDERED: NALOXONE 0.4 MG/ML 1 ML VIAL IV PRN (16:09)
[2023-01-14] MEDS ORDERED: ONDANSETRON 4 MG/2 ML VIAL IVP PRN (16:09)
[2023-01-14 17:55] LABS: Appearance,Urine Cloudy (Clear); Color,Urine Light Orange; Glucose,Urine (UA) Negative (Negative); Protein,Urine 1+ (Negative)
[2023-01-14 17:56] LABS: Bilirubin,Urine Negative (Negative); Blood,Urine Negative (Negative); Ketones,Urine Trace (Negative); Leukocyte Esterase,Urine Large (Negative); Nitrite,Urine Positive (Negative); Urobilinogen,Urine <2.0 mg/dL (<2.0)
[2023-01-14] MEDS: MORPHINE SULFATE 4 MG/ML SYRINGE IV PRN ×2 (18:01→23:08)
[2023-01-14] MEDS: SODIUM CHLORIDE 0.9% 1,000 ML IV SCH (18:03)
[2023-01-14 19:08] LABS: Bacteria,Urine Rare /hpf; Budding Yeast,Urine Few /hpf; Mucus,Urine Occasional /hpf; RBC,Urine 10 /hpf (0-5); WBC,Urine 112 /hpf (0-5)
[2023-01-14 19:11] LABS: Specific Gravity,Urine 1.021 (1.001-1.035)
[2023-01-15] MEDS: MORPHINE SULFATE 4 MG/ML SYRINGE IV PRN (08:12)
[2023-01-15] MEDS ORDERED: ONDANSETRON 4 MG TAB PO PRN (08:14)
[2023-01-15] MEDS ORDERED: ACETAMINOPHEN TAB 325 MG TAB PO PRN (08:14)
[2023-01-15] MEDS ORDERED: LOPERAMIDE 2 MG CAP PO PRN (08:14)
[2023-01-15] MEDS ORDERED: MAGNESIUM HYDROXIDE 2,400 MG/30 ML CUP PO PRN (08:14)
[2023-01-15] MEDS ORDERED: NA PHOS,M-B/NA PHOS,DI-BA 133 ML ENEMA RECTAL PRN (08:14)
[2023-01-15] MEDS ORDERED: bisacodyL 10 MG SUPP RECTAL PRN (08:14)
--- NOTE | 2023-01-15 09:03 | P.HPIM ---
History of Present Illness H&P Date: 01/15/23 Chief Complaint: Abdominal pain nausea or diarrhea. This is an 87-year-old white female who recently had cholecystectomy about 3 weeks ago and has been in extended care facility [facility] for the last several weeks. She is struggling over the last several days with abdominal pain. Computed tomography scan shows changes of cholecystectomy with probable urinary tract infection. She struggled chronically with urinary retention and had Morley catheter placed. She was admitted for trial of removal of Morley summary that she could try to urinate on her own which she stroke has been able to do. She's complaining of significant abdominal pain today. Cognitively her short-term memory is poor. Granddaughter is here to fill and story. Opiate dependency is noted. Past medical history, if memory serves, has history of abdominal mass removal with postoperative complication of perforation. History of colectomy Review of Systems ROS unobtainable: due to mental status Gastrointestinal: Reports abdominal pain Genitourinary: Reports as per HPI Musculoskeletal: Denies myalgias Past Medical History Past Medical History: Asthma, Fibromyalgia, Hypertension, Osteoarthritis (OA), Thyroid Disorder Additional Past Medical History / Comment(s): Neuropathy History of Any Multi-Drug Resistant Organisms: VRE Date of last positivie culture/infection: 01/01/23 MDRO Source:: Urine Past Surgical History: Appendectomy, Joint Replacement Additional Past Surgical History / Comment(s): RIGHT KNEE Past Anesthesia/Blood Transfusion Reactions: No Reported Reaction Past Psychological History: Depression Smoking Status: Former smoker Past Alcohol Use History: None Reported Past Drug Use History: None Reported - Past Family History Father Family Medical History: Cancer Medications and Allergies Home Medications Medication Instructions Recorded Confirmed Type Levothyroxine Sodium [Synthroid] 50 mcg PO DAILY@0600 05/13/14 01/14/23 History Pantoprazole Sodium [Protonix] 40 mg PO DAILY@0600 10/01/20 01/14/23 History lisinopriL [Zestril] 20 mg PO DAILY@0800 10/01/20 01/14/23 History Metoprolol Succinate (ER) [Toprol 25 mg PO DAILY@0800 12/05/22 01/14/23 History XL] Acetaminophen Tab [Tylenol] 650 mg PO Q4H PRN 01/01/23 01/14/23 History Ensure Enlive 120 ml PO DAILY@0800 01/01/23 01/14/23 History Gabapentin [Neurontin] 300 mg PO TID@0600,1400,2200 01/01/23 01/14/23 History Magnesium Hydroxide [Milk of 7,200 mg PO Q48H PRN 01/01/23 01/14/23 History Magnesia Concentrate] Na Phos,M-B/Na Phos,Di-Ba [Fleet 133 ml RECTAL DAILY PRN 01/01/23 01/14/23 History Adult] bisacodyL [Dulcolax] 10 mg RECTAL DAILY PRN 01/01/23 01/14/23 History oxyCODONE HCL [OxyIR] 5 mg PO Q4H PRN 01/01/23 01/14/23 History Loperamide HCl [Imodium A-D] 4 mg PO BID PRN 01/14/23 01/14/23 History Ondansetron [Zofran] 4 mg PO Q8HR PRN 01/14/23 01/14/23 History methocarbamoL [Robaxin-750] 750 mg PO TID@0800,1400,2100 01/14/23 01/14/23 History Allergies Allergy/AdvReac Type Severity Reaction Status Date / Time No Known Allergies Allergy Verified 01/14/23 12:16 Physical Exam Vitals: Vital Signs Temp Pulse Pulse Resp BP BP Pulse Ox 01/15/23 07:30 97.8 F 99 16 132/87 95 01/15/23 02:18 98.7 F 104 H 12 137/82 91 L 01/14/23 20:00 108 H 01/14/23 19:44 98.7 F 108 H 12 115/66 94 L 01/14/23 17:58 102 H 18 118/75 96 01/14/23 13:19 101 H 18 105/66 95 01/14/23 11:53 98.9 F 107 H 16 91/60 98 Intake and Output 01/14/23 01/15/23 01/15/23 22:59 06:59 14:59 Other: Voiding Method Diaper # Bowel Movements 1 1 - Constitutional General appearance: thin - EENT Eyes: EOMI - Neck Neck: no lymphadenopathy - Respiratory Respiratory: bilateral: diminished - Cardiovascular Rhythm: regular Heart sounds: normal: S1, S2 Abnormal Heart Sounds: no S3 Gallop - Gastrointestinal General gastrointestinal: soft, tenderness Localized gastrointestinal: tender: epigastric periumbilical - Neurologic Neurologic: CNII-XII intact - Psychiatric Psychiatric: A&O x's 3 Results CBC & Chem 7: 01/14/23 12:36 01/14/23 12:36 Labs: Abnormal Lab Results - Last 24 Hours (Table) 01/14/23 01/14/23 01/14/23 Range/Units 12:36 12:36 12:36 WBC 17.9 H (3.8-10.6) k/uL RBC 3.30 L (3.80-5.40) m/uL Hgb 10.6 L (11.4-16.0) gm/dL Hct 33.7 L (34.0-46.0) % MCV 102.3 H (80.0-100.0) fL RDW 16.4 H (11.5-15.5) % Neutrophils # 16.4 H (1.3-7.7) k/uL Lymphocytes # 0.7 L (1.0-4.8) k/uL Sodium 132 L (137-145) mmol/L BUN 21 H (7-17) mg/dL Plasma Lactic Acid John 2.6 H* (0.7-2.0) mmol/L Calcium 8.1 L (8.4-10.2) mg/dL Total Protein 5.4 L (6.3-8.2) g/dL Albumin 2.8 L (3.5-5.0) g/dL Amylase <30 L (30-110) U/L Lipase 13 L (23-300) U/L Urine Appearance (Clear) Urine Protein (Negative) Urine RBC (0-5) /hpf Urine WBC (0-5) /hpf Urine WBC Clumps (None) /hpf Urine Bacteria (None) /hpf Urine Mucus (None) /hpf Urine Yeast (Budding) (None) /hpf 01/14/23 Range/Units 16:10 WBC (3.8-10.6) k/uL RBC (3.80-5.40) m/uL Hgb (11.4-16.0) gm/dL Hct (34.0-46.0) % MCV (80.0-100.0) fL RDW (11.5-15.5) % Neutrophils # (1.3-7.7) k/uL Lymphocytes # (1.0-4.8) k/uL Sodium (137-145) mmol/L BUN (7-17) mg/dL Plasma Lactic Acid John (0.7-2.0) mmol/L Calcium (8.4-10.2) mg/dL Total Protein (6.3-8.2) g/dL Albumin (3.5-5.0) g/dL Amylase (30-110) U/L Lipase (23-300) U/L Urine Appearance Cloudy H (Clear) Urine Protein 1+ H (Negative) Urine RBC 10 H (0-5) /hpf Urine WBC 112 H (0-5) /hpf Urine WBC Clumps Few H (None) /hpf Urine Bacteria Rare H (None) /hpf Urine Mucus Occasional H (None) /hpf Urine Yeast (Budding) Few H (None) /hpf Assessment and Plan (1) Abdominal pain Current Visit: Yes Status: Acute Code(s): R10.9 - UNSPECIFIED ABDOMINAL PAIN SNOMED Code(s): 19452156 (2) Dehydration Current Visit: Yes Status: Acute Code(s): E86.0 - DEHYDRATION SNOMED Code(s): 08131366 (3) Diarrhea Current Visit: Yes Status: Acute Code(s): R19.7 - DIARRHEA, UNSPECIFIED SNOMED Code(s): 07066190 (4) Gastroenteritis Current Visit: Yes Status: Acute Code(s): K52.9 - NONINFECTIVE GASTROENTERITIS AND COLITIS, UNSPECIFIED SNOMED Code(s): 57636715 (5) Urinary tract infection Current Visit: Yes Status: Acute Code(s): N39.0 - URINARY TRACT INFECTION, SITE NOT SPECIFIED SNOMED Code(s): 77967376 (6) Opiate dependence Current Visit: Yes Status: Acute Code(s): F11.20 - OPIOID DEPENDENCE, UNCOMPLICATED SNOMED Code(s): 08128556 Plan: Significant issue with recurrent urinary retention. UTI. Chronic abdominal pain. Opiate dependency issues. 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 Mild hyponatremia. Check CBC and CMP in a.m. I will go ahead and asked Dr. Luna to comment on urinary retention. Prognosis is guarded secondary to her multiple comorbidities. Titrate consult for nutritional state issues.
[2023-01-15 10:51] LABS: Basophils % (A) 0 %; Eosinophils # (A) 0.1 k/uL (0-0.7); Eosinophils % (A) 0 %; HCT 30.7 % (34.0-46.0); HGB 9.4 gm/dL (11.4-16.0); Hypochromasia Marked; Lymphocytes # (A) 0.6 k/uL (1.0-4.8); Lymphocytes % (A) 4 %; MCHC 30.6 g/dL (31.0-37.0); MCV 104.5 fL (80.0-100.0); Macrocytosis Moderate; Mean Platelet Volume 7.5; Monocytes # (A) 0.4 k/uL (0-1.0); Monocytes % (A) 3 %; Neutrophils # (A) 12.3 k/uL (1.3-7.7); Neutrophils % (A) 91 %; Platelet Count 278 k/uL (150-450); RBC 2.94 m/uL (3.80-5.40); RDW 15.9 % (11.5-15.5); WBC 13.5 k/uL (3.8-10.6)
[2023-01-15 11:12] LABS: ALT 13 U/L (4-34); AST 18 U/L (14-36); African American GFR (CKD) >90 (>60 ml/min/1.73 sqM); Albumin 2.3 g/dL (3.5-5.0); Alkaline Phosphatase 64 U/L (38-126); Anion Gap 9 mmol/L; Blood Urea Nitrogen 14 mg/dL (7-17); Calcium 7.2 mg/dL (8.4-10.2); Carbon Dioxide 20 mmol/L (22-30); Chloride 106 mmol/L (98-107); Globulin 2.4 g/dL; Glucose 120 mg/dL (74-99); Magnesium 1.8 mg/dL (1.6-2.3); Non-African American GFR(CKD) >90 (>60 ml/min/1.73 sqM); Phosphorus 2.6 mg/dL (2.5-4.5); Potassium 3.5 mmol/L (3.5-5.1); Sodium 135 mmol/L (137-145); Total Bilirubin 0.3 mg/dL (0.2-1.3); Total Protein 4.7 g/dL (6.3-8.2)
[2023-01-15] MEDS: SODIUM CHLORIDE 0.9% 1,000 ML IV SCH ×2 (11:29→17:56)
[2023-01-15] MEDS: GABAPENTIN 300 MG CAP PO SCH ×2 (13:18→22:18)
[2023-01-15] MEDS: methocarbamoL 750 MG TAB PO SCH ×2 (13:19→22:18)
[2023-01-15 17:05] LABS: Glucose,Whole Blood 116 mg/dL (70-110)
[2023-01-15 20:32] LABS: Glucose,Whole Blood 110 mg/dL (70-110)
[2023-01-16] MEDS: PANTOPRAZOLE 40 MG TABLET PO SCH (05:32)
[2023-01-16] MEDS: GABAPENTIN 300 MG CAP PO SCH ×3 (05:33→20:18)
[2023-01-16] MEDS: LEVOTHYROXINE 50 MCG TAB PO SCH (05:33)
[2023-01-16] MEDS: SODIUM CHLORIDE 0.9% 1,000 ML IV SCH ×2 (05:34→22:59)
[2023-01-16 06:36] LABS: Glucose,Whole Blood 87 mg/dL (70-110)
[2023-01-16] MEDS ORDERED: NON FORMULARY DRUG (Ensure Enlive 120 ML) PO SCH (08:00)
--- NOTE | 2023-01-16 08:17 | P.PN ---
Subjective Progress Note Date: 01/16/23 Principal diagnosis: Abdominal pain This is an 87-year-old female who was residing at [facility] for the last several weeks who reports abdominal pain for the last several days. About 3 weeks ago patient had a cholecystectomy and had been at [facility] since. Patient also experiencing urinary retention at [facility]. A Morley catheter was placed and trial of removal of catheter yesterday was unsuccessful. Morley catheter remains in place. Urology has been consulted. Patient has poor short-term memory. She is seen this morning sitting up in bed. She is tolerating diet. She is still reporting abdominal pain. Objective - Vital Signs Vital signs: Vital Signs Temp 97.7 F 01/16/23 00:54 Pulse 89 01/16/23 00:54 Resp 16 01/15/23 20:00 BP 114/69 01/16/23 00:54 Pulse Ox 99 01/16/23 00:54 FiO2 Intake & Output 01/15/23 01/16/23 01/16/23 18:59 06:59 18:59 Output Total 700 100 Balance -700 -100 Weight 65.771 kg Output: Urine 700 100 Other: Voiding Method Indwelling Catheter - Constitutional General appearance: Present: cooperative, no acute distress - EENT Eyes: Present: PERRLA - Neck Neck: Present: normal ROM. Absent: lymphadenopathy, rigidity - Respiratory Respiratory: bilateral: diminished - Cardiovascular Rhythm: regular Heart sounds: normal: S1, S2 - Gastrointestinal General gastrointestinal: Present: soft, tenderness - Integumentary Integumentary: Present: normal, normal turgor - Psychiatric Psychiatric: Present: A&O x's 3 - Labs CBC & Chem 7: 01/15/23 10:13 01/15/23 10:13 Labs: Abnormal Lab Results - Last 24 Hours (Table) 01/15/23 01/15/23 01/15/23 Range/Units 10:13 10:13 17:03 WBC 13.5 H (3.8-10.6) k/uL RBC 2.94 L (3.80-5.40) m/uL Hgb 9.4 L (11.4-16.0) gm/dL Hct 30.7 L (34.0-46.0) % MCV 104.5 H (80.0-100.0) fL MCHC 30.6 L (31.0-37.0) g/dL RDW 15.9 H (11.5-15.5) % Neutrophils # 12.3 H (1.3-7.7) k/uL Lymphocytes # 0.6 L (1.0-4.8) k/uL Sodium 135 L (137-145) mmol/L Carbon Dioxide 20 L (22-30) mmol/L Creatinine 0.44 L (0.52-1.04) mg/dL Glucose 120 H (74-99) mg/dL POC Glucose (mg/dL) 116 H (70-110) mg/dL Calcium 7.2 L (8.4-10.2) mg/dL Total Protein 4.7 L (6.3-8.2) g/dL Albumin 2.3 L (3.5-5.0) g/dL Assessment and Plan (1) Abdominal pain Current Visit: Yes Status: Acute Code(s): R10.9 - UNSPECIFIED ABDOMINAL PAIN SNOMED Code(s): 76605127 (2) Dehydration Current Visit: Yes Status: Acute Code(s): E86.0 - DEHYDRATION SNOMED C ode(s): 24145643 (3) Diarrhea Current Visit: Yes Status: Acute Code(s): R19.7 - DIARRHEA, UNSPECIFIED SNOMED Code(s): 60119741 (4) Gastroenteritis Current Visit: Yes Status: Acute Code(s): K52.9 - NONINFECTIVE GASTROENTERITIS AND COLITIS, UNSPECIFIED SNOMED Code(s): 86711196 (5) Opiate dependence Current Visit: Yes Status: Acute Code(s): F11.20 - OPIOID DEPENDENCE, UNCOMPLICATED SNOMED Code(s): 50570312 (6) Urinary tract infection Current Visit: Yes Status: Acute Code(s): N39.0 - URINARY TRACT INFECTION, SITE NOT SPECIFIED SNOMED Code(s): 96475380 (7) Urinary retention Current Visit: Yes Status: Acute Code(s): R33.9 - RETENTION OF URINE, UNSPECIFIED SNOMED Code(s): 113326474 Plan: Continue Morley catheter. Appreciate urology input. Check CBC and CMP in the morning. Patient seen and evaluated by nurse practitioner, physician in agreement with plan
[2023-01-16] MEDS: methocarbamoL 750 MG TAB PO SCH ×3 (08:24→20:18)
[2023-01-16] MEDS: lisinopriL 20 MG TAB PO SCH (08:24)
[2023-01-16] MEDS: METOPROLOL SUCCINATE (ER) 25 MG TAB.ER.24H PO SCH (08:24)
[2023-01-16 11:16] LABS: HCT 31.6 % (37.2-46.3); HGB 9.6 g/dL (12.0-15.0); MCH 31.5 pg (27.0-32.0); MCHC 30.4 g/dL (32.0-37.0); MCV 103.6 FL (80.0-97.0); Mean Platelet Volume 8.9 FL (9.5-12.2); NRBC Per 100 WBC 0 X 10*3/uL (0.00-0.01); Platelet Count 298 X 10*3/uL (140-440); RBC 3.05 X 10*6/uL (4.10-5.20); RDW 16.6 % (11.5-14.5); WBC 11.28 X 10*3/uL (4.50-10.00)
[2023-01-16 11:29] LABS: Glucose,Whole Blood 98 mg/dL (70-110)
[2023-01-16 12:06] LABS: ALT 8 U/L (8-44); AST 12 U/L (13-35); Albumin 2.6 g/dL (3.8-4.9); Alkaline Phosphatase 72 U/L (41-126); Blood Urea Nitrogen 11.4 mg/dL (9.0-27.0); Calcium 7.9 mg/dL (8.7-10.3); Carbon Dioxide 23.8 mmol/L (21.6-31.8); Chloride 102 mmol/L (96-109); Glucose 82 mg/dL (70-110); Potassium 3.4 mmol/L (3.5-5.5); Sodium 136 mmol/L (135-145); Total Bilirubin 0.4 mg/dL (0.3-1.2); Total Protein 4.6 g/dL (6.2-8.2)
--- NOTE | 2023-01-16 12:59 | CDI ---
Documentation Clarification Form Date: 01/16/2023 12:42:49 PM From: Oxana Garcia RN CCDS Phone: [phone] Admit Date: 01/14/2023 04:09:00 PM Patient Name: Wandy Orta Visit Number: [id number] Discharge Date: ATTENTION: The Clinical Documentation Specialists (CDI) and [facility] Coding Staff appreciate your assistance in clarifying documentation. Please respond to the clarification below the line at the bottom and electronically sign. The CDI & [facility] Coding staff will review the response and follow-up if needed. Please note: Queries are made part of the Legal Health Record. If you have any questions, please contact the author of this message via ITS. Dr. Jayy Tinsley UTI is documented 01/15, H&P and patient had roper catheter on admission documented in Nursing assessment 01/14. Additional clarification regarding the etiology of the UTI is requested. History/Risk Factors: 87-year-old female presented to the ED from [facility] for abdominal pain. The patient was admitted for trial of removal of Roper so that she could try to urinate on her own. Medical history: Cholecystectomy about 3 weeks ago, HTN, VRE in urine and OA. 01/15, H&P. Clinical Indicators: CT ABD PELVIS, 01/14: Roper catheter noted with air within the urinary bladder lumen. There is thickening of the urinary bladder wall suspicious for infection. Urinalysis: Light orange in color, cloudy, 1+ protein, Large leukocyte esterase, RBC 10, WBC 112, Wbc Clumps few; Bacteria rare. Nursing Genitourinary Assessment, 01/14:Patient previously had roper for retention at [facility], removed today per physician order. Due to void. Lab results, 01/14: Wbc 17.9; Neutrophils 16.4; Lactic acid 2.6 Treatment: Urology consult pending. 01/14 0.9ns 1.5L IV fluid bolus, 01/14 Ceftriaxone ivpb x1; 01/15 Ceftriaxone IVPB Q24Hr; Please clarify the etiology of the UTI, if known: [ ] Roper catheter [ ] UTI not related to catheter [ x] Other condition, please specify ___Urinary retention [ ] Unable to determine (Template Last Revised: April 2020) MTDD
[2023-01-16 13:25] VITALS: BMI 11.2
--- NOTE | 2023-01-16 14:49 | P.GSCN ---
History of Present Illness Consult date: 01/16/23 Reason for Consult: Urinary retention History of present illness: This is an 87-year-old female admitted to the hospital with abdominal pain. Urology is consulted for urinary retention. Bladder scan on presentation showed post void residual elevated at 415 mL subsequently Morley catheter was placed. She did have a CT abdomen and pelvis which showed evidence of multiple bladder diverticuli but no additional abnormalities within the bladder. She indicated recently she did have an episode of retention and a Morley catheter was placed. Review of Systems - Constitutional Denies fever, Denies weight loss - EENT Ears, nose, mouth and throat: Denies dysphagia - Cardiovascular Denies chest pain, Denies shortness of breath - Respiratory Denies cough, Denies 7 - Gastrointestinal Reports abdominal pain, Denies nausea, Denies vomiting - Genitourinary Genitourinary: Denies dysuria, Denies hematuria - Neurological Denies headaches, Denies syncope Past Medical History Past Medical History: Asthma, Fibromyalgia, Hypertension, Osteoarthritis (OA), Thyroid Disorder Additional Past Medical History / Comment(s): Neuropathy History of Any Multi-Drug Resistant Organisms: VRE Year Discovered:: 01/01/23 MDRO Source:: Urine Past Surgical History: Appendectomy, Joint Replacement Additional Past Surgical History / Comment(s): RIGHT KNEE Past Anesthesia/Blood Transfusion Reactions: No Reported Reaction Smoking Status: Never smoker - Past Family History Father Family Medical History: Cancer Medications and Allergies Home Medications Medication Instructions Recorded Confirmed Type Levothyroxine Sodium [Synthroid] 50 mcg PO DAILY@0600 05/13/14 01/14/23 History Pantoprazole Sodium [Protonix] 40 mg PO DAILY@0600 10/01/20 01/14/23 History lisinopriL [Zestril] 20 mg PO DAILY@0800 10/01/20 01/14/23 History Metoprolol Succinate (ER) [Toprol 25 mg PO DAILY@0800 12/05/22 01/14/23 History XL] Acetaminophen Tab [Tylenol] 650 mg PO Q4H PRN 01/01/23 01/14/23 History Ensure Enlive 120 ml PO DAILY@0800 01/01/23 01/14/23 History Gabapentin [Neurontin] 300 mg PO TID@0600,1400,2200 01/01/23 01/14/23 History Magnesium Hydroxide [Milk of 7,200 mg PO Q48H PRN 01/01/23 01/14/23 History Magnesia Concentrate] Na Phos,M-B/Na Phos,Di-Ba [Fleet 133 ml RECTAL DAILY PRN 01/01/23 01/14/23 History Adult] bisacodyL [Dulcolax] 10 mg RECTAL DAILY PRN 01/01/23 01/14/23 History oxyCODONE HCL [OxyIR] 5 mg PO Q4H PRN 01/01/23 01/14/23 History Loperamide HCl [Imodium A-D] 4 mg PO BID PRN 01/14/23 01/14/23 History Ondansetron [Zofran] 4 mg PO Q8HR PRN 01/14/23 01/14/23 History methocarbamoL [Robaxin-750] 750 mg PO TID@0800,1400,2100 01/14/23 01/14/23 History Allergies Allergy/AdvReac Type Severity Reaction Status Date / Time No Known Allergies Allergy Verified 01/14/23 12:16 Surgical - Exam Vital Signs Temp Pulse Resp BP Pulse Ox 98.9 F 107 H 16 91/60 98 01/14/23 11:53 01/14/23 11:53 01/14/23 11:53 01/14/23 11:53 01/14/23 11:53 - General no distress, no pain - Eyes normal ocular movement, no pale - ENT normal nares, normal mucosa - Respiratory normal expansion, normal respiratory effort - Abdomen Abdomen: soft, non tender, no distended Results - Labs 01/16/23 05:42 01/16/23 05:42 Abnormal Lab Results - Last 24 Hours (Table) 01/15/23 01/16/23 01/16/23 Range/Units 17:03 05:42 05:42 WBC 11.28 H (4.50-10.00) X 10*3/uL RBC 3.05 L (4.10-5.20) X 10*6/uL Hgb 9.6 L (12.0-15.0) g/dL Hct 31.6 L (37.2-46.3) % MCV 103.6 H (80.0-97.0) FL MCHC 30.4 L (32.0-37.0) g/dL RDW 16.6 H (11.5-14.5) % MPV 8.9 L (9.5-12.2) FL Potassium 3.4 L (3.5-5.5) mmol/L Creatinine 0.4 L (0.6-1.5) mg/dL BUN/Creatinine Ratio 28.50 H (12.00-20.00) Ratio POC Glucose (mg/dL) 116 H (70-110) mg/dL Calcium 7.9 L (8.7-10.3) mg/dL AST 12 L (13-35) U/L Total Protein 4.6 L (6.2-8.2) g/dL Albumin 2.6 L (3.8-4.9) g/dL Albumin/Globulin Ratio 1.30 L (1.60-3.17) Ratio Diabetes panel 01/16/23 Range/Units 05:42 Sodium 136 (135-145) mmol/L Potassium 3.4 L (3.5-5.5) mmol/L Chloride 102 (96-109) mmol/L Carbon Dioxide 23.8 (21.6-31.8) mmol/L BUN 11.4 (9.0-27.0) mg/dL Creatinine 0.4 L (0.6-1.5) mg/dL Glucose 82 (70-110) mg/dL Calcium 7.9 L (8.7-10.3) mg/dL AST 12 L (13-35) U/L ALT 8 (8-44) U/L Alkaline Phosphatase 72 (41-126) U/L Total Protein 4.6 L (6.2-8.2) g/dL Albumin 2.6 L (3.8-4.9) g/dL Calcium panel 01/16/23 Range/Units 05:42 Calcium 7.9 L (8.7-10.3) mg/dL Albumin 2.6 L (3.8-4.9) g/dL Pituitary panel 01/16/23 Range/Units 05:42 Sodium 136 (135-145) mmol/L Potassium 3.4 L (3.5-5.5) mmol/L Chloride 102 (96-109) mmol/L Carbon Dioxide 23.8 (21.6-31.8) mmol/L BUN 11.4 (9.0-27.0) mg/dL Creatinine 0.4 L (0.6-1.5) mg/dL Glucose 82 (70-110) mg/dL Calcium 7.9 L (8.7-10.3) mg/dL Adrenal panel 01/16/23 Range/Units 05:42 Sodium 136 (135-145) mmol/L Potassium 3.4 L (3.5-5.5) mmol/L Chloride 102 (96-109) mmol/L Carbon Dioxide 23.8 (21.6-31.8) mmol/L BUN 11.4 (9.0-27.0) mg/dL Creatinine 0.4 L (0.6-1.5) mg/dL Glucose 82 (70-110) mg/dL Calcium 7.9 L (8.7-10.3) mg/dL Total Bilirubin 0.4 (0.3-1.2) mg/dL AST 12 L (13-35) U/L ALT 8 (8-44) U/L Alkaline Phosphatase 72 (41-126) U/L Total Protein 4.6 L (6.2-8.2) g/dL Albumin 2.6 L (3.8-4.9) g/dL Assessment and Plan Assessment: 87-year-old female with urinary retention post-residuals [address] showed evidence of bladder diverticulum. Given this finding most she has incomplete bladder emptying at basekube =, At this time the Morley catheter can be removed prior to discharge, given her age she has no symptoms, she is ok to have a slight elevated PVR -Morley catheter can be removed at time of discharge, please obtain a postvoid residual after catheter removal, if less than 400 mL patient can be discharged without a Morley catheter
[2023-01-16] MEDS: FAMOTIDINE 20 MG TAB PO SCH (15:35)
[2023-01-16 16:50] LABS: Glucose,Whole Blood 106 mg/dL (70-110)
[2023-01-16 20:16] LABS: Glucose,Whole Blood 124 mg/dL (70-110)
[2023-01-17] MEDS: LEVOTHYROXINE 50 MCG TAB PO SCH (05:57)
[2023-01-17] MEDS: GABAPENTIN 300 MG CAP PO SCH (05:57)
[2023-01-17] MEDS: PANTOPRAZOLE 40 MG TABLET PO SCH (05:57)
--- NOTE | 2023-01-17 08:24 | P.DS ---
Providers Date of admission: 01/14/23 16:09 Attending physician: Jayy Tinsley Consults: 01/15/23 08:40 Consult Physician Routine Consulting Provider: Aric Luan Consult Reason/Comments: urinary retention Do you want consulting provider notified?: Yes Primary care physician: Jayy Tinsley - Discharge Diagnosis(es) (1) Abdominal pain Current Visit: Yes Status: Acute (2) Dehydration Current Visit: Yes Status: Acute (3) Diarrhea Current Visit: Yes Status: Acute (4) Gastroenteritis Current Visit: Yes Status: Acute (5) Urinary tract infection Current Visit: Yes Status: Acute (6) Opiate dependence Current Visit: Yes Status: Acute Hospital Course: This patient was admitted for UTI with urinary retention. 2 trials of removing the Morley catheter failed. She was unable to urinate appropriately and had Morley catheter replaced. The patient was treated with appropriate antibiotic treatment. Question UTI versus a symptomatically bacteria related to urinary retention. Appreciate urology input. The patient has recent cholecystectomy. Significant abdominal pain is chronic. She was started on morphine with oxycodone and seemed to be stable she is tolerating diet no fever or white count was stable and she'll be discharged in guarded condition to F due to her urinary retention and multiple abdominal issues. Prognosis is guarded. Patient Condition at Discharge: Fair Plan - Discharge Summary Discharge Rx Participant: No New Discharge Prescriptions: New cefUROXime axetiL [Ceftin] 500 mg PO BID #8 tab Continue Levothyroxine Sodium [Synthroid] 50 mcg PO DAILY@0600 lisinopriL [Zestril] 20 mg PO DAILY@0800 Metoprolol Succinate (ER) [Toprol XL] 25 mg PO DAILY@0800 Magnesium Hydroxide [Milk of Magnesia Concentrate] 7,200 mg PO Q48H PRN PRN Reason: Constipation Gabapentin [Neurontin] 300 mg PO TID@0600,1400,2200 Ondansetron [Zofran] 4 mg PO Q8HR PRN PRN Reason: Nausea Pantoprazole Sodium [Protonix] 40 mg PO DAILY@0600 bisacodyL [Dulcolax] 10 mg RECTAL DAILY PRN PRN Reason: Constipation Na Phos,M-B/Na Phos,Di-Ba [Fleet Adult] 133 ml RECTAL DAILY PRN PRN Reason: Constipation Acetaminophen Tab [Tylenol] 650 mg PO Q4H PRN PRN Reason: Fever And/ Or Pain Ensure Enlive 120 ml PO DAILY@0800 Loperamide HCl [Imodium A-D] 4 mg PO BID PRN PRN Reason: Diarrhea methocarbamoL [Robaxin-750] 750 mg PO TID@0800,1400,2100 oxyCODONE HCL [OxyIR] 5 mg PO Q4H PRN #180 tab PRN Reason: Pain Discharge Medication List Levothyroxine Sodium [Synthroid] 50 mcg PO DAILY@0600 05/13/14 [History] Pantoprazole Sodium [Protonix] 40 mg PO DAILY@0600 10/01/20 [History] lisinopriL [Zestril] 20 mg PO DAILY@0800 10/01/20 [History] Metoprolol Succinate (ER) [Toprol XL] 25 mg PO DAILY@0800 12/05/22 [History] Acetaminophen Tab [Tylenol] 650 mg PO Q4H PRN 01/01/23 [History] Ensure Enlive 120 ml PO DAILY@0800 01/01/23 [History] Gabapentin [Neurontin] 300 mg PO TID@0600,1400,2200 01/01/23 [History] Magnesium Hydroxide [Milk of Magnesia Concentrate] 7,200 mg PO Q48H PRN 01/01/23 [History] Na Phos,M-B/Na Phos,Di-Ba [Fleet Adult] 133 ml RECTAL DAILY PRN 01/01/23 [History] bisacodyL [Dulcolax] 10 mg RECTAL DAILY PRN 01/01/23 [History] Loperamide HCl [Imodium A-D] 4 mg PO BID PRN 01/14/23 [History] Ondansetron [Zofran] 4 mg PO Q8HR PRN 01/14/23 [History] methocarbamoL [Robaxin-750] 750 mg PO TID@0800,1400,2100 01/14/23 [History] cefUROXime axetiL [Ceftin] 500 mg PO BID #8 tab 01/17/23 [Rx] oxyCODONE HCL [OxyIR] 5 mg PO Q4H PRN #180 tab 01/17/23 [Rx] Follow up Appointment(s)/Referral(s): Jayy Tinsley MD [Primary Care Provider] - 1-2 days
[2023-01-17 08:35] LABS: HCT 30.3 % (37.2-46.3); HGB 9.4 g/dL (12.0-15.0); MCH 31.8 pg (27.0-32.0); MCV 102.4 FL (80.0-97.0); Mean Platelet Volume 8.7 FL (9.5-12.2); NRBC Per 100 WBC 0 X 10*3/uL (0.00-0.01); Platelet Count 261 X 10*3/uL (140-440); RBC 2.96 X 10*6/uL (4.10-5.20); RDW 16.2 % (11.5-14.5); WBC 4.83 X 10*3/uL (4.50-10.00)
[2023-01-17 08:59] VITALS: BP 102/65; PULSE 85; RESP 18; TEMP 97.8
[2023-01-17] MEDS: methocarbamoL 750 MG TAB PO SCH (09:06)
[2023-01-17] MEDS: lisinopriL 20 MG TAB PO SCH (09:06)
[2023-01-17 09:19] LABS: ALT 9 U/L (8-44); AST 9 U/L (13-35); Albumin 2.4 g/dL (3.8-4.9); Albumin/Globulin Ratio 1.33 Ratio (1.60-3.17); Alkaline Phosphatase 51 U/L (41-126); Blood Urea Nitrogen 8.7 mg/dL (9.0-27.0); Calcium 7.5 mg/dL (8.7-10.3); Carbon Dioxide 25.2 mmol/L (21.6-31.8); Chloride 105 mmol/L (96-109); Globulin 1.8 g/dL (1.6-3.3); Glucose 86 mg/dL (70-110); Potassium 3.4 mmol/L (3.5-5.5); Sodium 138 mmol/L (135-145); Total Bilirubin <0.2 mg/dL (0.3-1.2); Total Protein 4.2 g/dL (6.2-8.2)
[2023-01-17] MEDS ORDERED: Potassium Replacement Protocol 1 EACH MISC MISCELLANE PRN (10:20)
[2023-01-17] MEDS: FAMOTIDINE 20 MG TAB PO SCH (10:20)
[2023-01-17] MEDS: METOPROLOL SUCCINATE (ER) 25 MG TAB.ER.24H PO SCH (10:24)
[2023-01-17] MEDS ORDERED: POTASSIUM CHLORIDE ER 20 MEQ TAB.ER PO SCH (11:00)
--- NOTE | 2023-01-21 13:35 | CDI ---
Documentation Clarification Form Date: 01/21/2023 01:18:55 PM From: Ileana Lee RN, CCDS Email: [email or web address] Admit Date: 01/14/2023 04:09:00 PM Patient Name: Wandy Orta Visit Number: [id number] Discharge Date: 01/17/2023 01:01:00 PM ATTENTION: The Clinical Documentation Specialists (CDI) and [facility] Coding Staff appreciate your assistance in clarifying documentation. Please respond to the clarification below the line at the bottom and electronically sign. The CDI & [facility] Coding staff will review the response and follow-up if needed. Please note: Queries are made part of the Legal Health Record. If you have any questions, please contact the author of this message via ITS. Dr. Jayy Tinsley The patient had a UTI, elevated white count and tachycardia. Based on this information and the findings below, is there an additional diagnosis that is clinically appropriate for this patient? History/Risk Factors: recent cholecystectomy 3 weeks ago. Presents with abdominal pain. Probable UTI. She struggled chronically with urinary retention and had Morley placed. Admitted for trial of removal of Morley and UTI. Clinical Indicators: Urology: "Repeat CT showed evidence of bladder diverticulum. Given this finding, she has incomplete bladder emptying at baseline. At this time the Morley catheter can be removed prior to discharge. Given her age she has no symptoms. She is ok to have a slight elevated PVR." Discharge summary: "This patient was admitted for UTI with urinary retention. 2 trials of removing the Morley catheter failed. She was unable to urinate appropriately and had Morley catheter replaced. The patient was treated with appropriate antibiotic treatment." 01/14-01/17 WBC: 17.9-13.5-11.-4.83 01/14 Lactic acid: 2.6-1.8 01/14 Vital signs: HR 107-101-102, BP 91/60 Treatment: Antibiotics: IV Rocephin 2gm x1 on 01/14 then Q24H 01/14-01/17 IV Bolus: 0.9 NS 1L IV bolus on 01/14 then 75mL/hr 01/14-01/17 Is there an additional diagnosis that is clinically appropriate for this patient? [ x] Sepsis, present on admission [ ] No additional diagnosis [ ] Other, please specify [ ] Unable to determine SIRS Criteria: 2 or more of the following may indicate SIRS Temperature < 96.8F (36C) or > 101.0F (38.3C) Heart Rate > 90 bpm Respiratory Rate > 20 breaths/min or PaCO2 < 32 mmHg White Blood Cell Count > 12,000 or < 4,000 cells/mm3 or > 10% bands MTDD
== END 2023-01-17 13:01 | DRG 872 ==
LOC: SUPCPDRO 11:24 → EC 11:24 → 4SSUR 16:09
PROVIDERS: ADMIT Family Medicine; ATTEND Family Medicine
DX: A41.9 Sepsis, unspecified organism (principal); N39.0 Urinary tract infection, site not specified; E87.1 Hypo-osmolality and hyponatremia; F11.20 Opioid dependence, uncomplicated; N32.3 Diverticulum of bladder; M79.7 Fibromyalgia; K52.9 Noninfective gastroenteritis and colitis, unspecified; R33.9 Retention of urine, unspecified; E86.0 Dehydration; E07.9 Disorder of thyroid, unspecified; F32.A Depression, unspecified; G89.29 Other chronic pain; I10 Essential (primary) hypertension; Z79.890 Hormone replacement therapy; Z79.899 Other long term (current) drug therapy; Z87.440 Personal history of urinary (tract) infections; Z90.49 Acquired absence of other specified parts of digestive tract; Z71.3 Dietary counseling and surveillance; Z96.651 Presence of right artificial knee joint
CPT/HCPCS: 36415; 51702; 51798; 74018; 74177; 80053; 81001; 82150; 83605; 83690; 83735; 84100; 85025; 85027; 96361; 96365; 96366; 96375; 96376; 99285

== ENCOUNTER 2023-04-23 15:15 | Observation (INO) | payer MEDICARE ==
--- NOTE | 2023-04-23 15:45 | ED ---
Weakness HPI - General Chief complaint: Weakness Stated complaint: Dehydration/weakness Time Seen by Provider: 04/23/23 15:28 Source: patient, RN notes reviewed, old records reviewed, Caregiver Mode of arrival: EMS Limitations: no limitations - History of Present Illness Initial comments: This is a 88-year-old female to the ER. Patient presents from her home for evaluation regards to weakness and failure to thrive not feeling or acting appropriate. Patient states she is not taking her medications as prescribed. EMS was called by patient's family member who is at bedside. Patient has no complaints of any chest pain shortness of breath or abdominal pain. No travel history or sick contacts MD Complaint: generalized weakness, focal weakness, lack of energy, difficulty walking -: days(s) Location: generalized Severity: moderate Severity scale (1-10): 6 Consistency: constant Improves with: none Worsens with: none Context: recent illness, history of similar Associated Symptoms: confusion - Related Data Home Medications Medication Instructions Recorded Confirmed Pantoprazole Sodium [Protonix] 40 mg PO BID 10/01/20 04/23/23 lisinopriL [Zestril] 20 mg PO DAILY 10/01/20 04/23/23 Gabapentin 600 mg PO TID 04/23/23 04/23/23 HYDROcodone/APAP 7.5-325MG [[place] 1 tab PO TID 04/23/23 04/23/23 7.5-325] Previous Rx's Medication Instructions Recorded cefUROXime axetiL [Cefuroxime] 500 mg PO BID #14 tab 04/25/23 Allergies Allergy/AdvReac Type Severity Reaction Status Date / Time No Known Allergies Allergy Verified 04/23/23 16:50 Review of Systems ROS Statement: Those systems with pertinent positive or pertinent negative responses have been documented in the HPI. ROS Other: All systems not noted in ROS Statement are negative. Past Medical History Past Medical History: Asthma, Fibromyalgia, Hypertension, Osteoarthritis (OA), Thyroid Disorder Additional Past Medical History / Comment(s): Neuropathy History of Any Multi-Drug Resistant Organisms: VRE Date of last positivie culture/infection: 01/01/23 MDRO Source:: Urine Past Surgical History: Appendectomy, Joint Replacement Additional Past Surgical History / Comment(s): RIGHT KNEE Past Anesthesia/Blood Transfusion Reactions: No Reported Reaction Past Psychological History: Depression Smoking Status: Never smoker - Past Family History Father Family Medical History: Cancer General Exam Limitations: no limitations General appearance: alert, in no apparent distress, anxious Head exam: Present: atraumatic, normocephalic, normal inspection Eye exam: Present: normal appearance, PERRL, EOMI. Absent: scleral icterus, conjunctival injection, periorbital swelling ENT exam: Present: normal exam, mucous membranes moist Neck exam: Present: normal inspection. Absent: tenderness, meningismus, lymphadenopathy Respiratory exam: Present: normal lung sounds bilaterally. Absent: respiratory distress, wheezes, rales, rhonchi, stridor Cardiovascular Exam: Present: regular rate, normal rhythm, normal heart sounds. Absent: systolic murmur, diastolic murmur, rubs, gallop, clicks GI/Abdominal exam: Present: soft, normal bowel sounds. Absent: distended, tenderness, guarding, rebound, rigid Extremities exam: Present: normal inspection, full ROM, normal capillary refill. Absent: tenderness, pedal edema, joint swelling, calf tenderness Back exam: Present: normal inspection Neurological exam: Present: alert, oriented X3, CN II-XII intact Psychiatric exam: Present: normal affect, normal mood Skin exam: Present: warm, dry, intact, normal color. Absent: rash Course Vital Signs 04/23/23 04/23/23 04/23/23 15:20 17:23 19:26 Temperature 97.7 F 97.6 F Pulse Rate 86 80 96 Respiratory 18 18 16 Rate Blood Pressure 167/103 156/90 156/93 O2 Sat by Pulse 97 96 97 Oximetry - Reevaluation(s) Reevaluation #1: 04/23/23 22:49 Records reviewed Reevaluation #2: 04/23/23 22:49 Patient symptoms unchanged Reevaluation #3: 04/23/23 22:49 Patient informed of results and questions answered Reevaluation #4: Was pt. sent in by a medical professional or institution (, PA, [employer], urgent care, hospital, or jail...) When possible be specific @ -no Did you speak to anyone other than the patient for history (EMS, parent, family, police, friend...)? What history was obtained from this source @ -no Did you review nursing and triage notes (agree or disagree)? Why? @ -agree Are old charts reviewed (outside hosp., previous admission, EMS record, old EKG, old radiological studies, urgent care reports/EKG's, jail records)? Report findings @ -yes Differential Diagnosis (chest pain, altered mental status, abdominal pain women, abdominal pain men, vaginal bleeding, weakness, fever, dyspnea, syncope, headache, dizziness, GI bleed, back pain, seizure, CVA, palpatations, mental health, musculoskeletal)? @ -prior EKG interpreted by me (3pts min.). @ -yes X-rays interpreted by me (1pt min.). @ -yes negative for acute disease CT interpreted by me (1pt min.). @ -no U/S interpreted by me (1pt. min.). @ -no What testing was considered but not performed or refused? (CT, X-rays, U/S, labs)? Why? @ -none What meds were considered but not given or refused? Why? @ -none Did you discuss the management of the patient with other professionals (professionals i.e. , PA, [employer], lab, RT, psych nurse, social human services assistants, revenue manager, teacher, patrol officer, case hardener)? Give summary @ -no Was smoking cessation discussed for >3mins.? @ -no Was critical care preformed (if so, how long)? @ -no Were there social determinants of health that impacted care today? How? (Homeles sness, low income, unemployed, alcoholism, drug addiction, transportation, low edu. Level, literacy, decrease access to med. care, [facility], rehab)? @ -none Was there de-escalation of care discussed even if they declined (Discuss DNR or withdrawal of care, Hospice)? DNR status @ -no What co-morbidities impacted this encounter? (DM, HTN, Smoking, COPD, CAD, Cancer, CVA, ARF, Chemo, Hep., AIDS, mental health diagnosis, sleep apnea, morbid obesity)? @ -none Was patient admitted / discharged? Hospital course, mention meds given and route, prescriptions, significant lab abnormalities, going to OR and other pertinent info. @ -88 female to the ER for evaluation today. Patient [place] for evaluation regards to severe weakness. Persistent weakness here in the ER with positive urinary tract infection will admit for IV antibiotics and hydration, Admitted Undiagnosed new problem with uncertain prognosis? @ -no Drug Therapy requiring intensive monitoring for toxicity (Heparin, Nitro, Insulin, Cardizem)? @ -no Were any procedures done? @ -no Diagnosis/symptom? @ -UTI, dehydration Acute, or Chronic, or Acute on Chronic? @ -Acute Uncomplicated (without systemic symptoms) or Complicated (systemic symptoms)? @ -Complicated Side effects of treatment? @ -no Exacerbation, Progression, or Severe Exacerbation? @ -exacerbation Poses a threat to life or bodily function? How? (Chest pain, USA, HI, pneumonia, PE, COPD, DKA, ARF, appy, cholecystitis, CVA, Diverticulitis, Homicidal, Suicidal, threat to staff... and all critical care pts) @ -yes with extremes of age Reevaluation #5: Differential Weakness: Hypoglycemia, shock, sepsis, hyponatremia, anemia, infection, HI, ETOH, adverse medicine reaction, overdose, stroke, this is not meant to be an all-inclusive list. - Consultations Consultation #1: Spoke with Dr. Tinsley who will admit this patient EKG Findings - EKG Comments: EKG Findings:: EKG is sinus 80 UT 145 QRS 32 QTc 396 - EKG Results: EKG: interpreted by ERMD Medical Decision Making - Medical Decision Making 88 female to the ER for evaluation today. Patient [place] for evaluation regards to severe weakness. Persistent weakness here in the ER with positive urinary tract infection will admit for IV antibiotics and hydration, - Lab Data Result diagrams: 04/25/23 09:58 04/25/23 05:55 Lab Results 04/23/23 04/23/23 04/23/23 Range/Units 15:56 15:56 15:56 WBC 5.4 (3.8-10.6) k/uL RBC 3.97 (3.80-5.40) m/uL Hgb 12.1 (11.4-16.0) gm/dL Hct 38.7 (34.0-46.0) % MCV 97.4 (80.0-100.0) fL MCH 30.6 (25.0-35.0) pg MCHC 31.4 (31.0-37.0) g/dL RDW 14.3 (11.5-15.5) % Plt Count 295 (150-450) k/uL MPV 6.9 Neutrophils % 74 % Lymphocytes % 19 % Monocytes % 5 % Eosinophils % 1 % Basophils % 0 % Neutrophils # 4.0 (1.3-7.7) k/uL Lymphocytes # 1.0 (1.0-4.8) k/uL Monocytes # 0.3 (0-1.0) k/uL Eosinophils # 0.0 (0-0.7) k/uL Basophils # 0.0 (0-0.2) k/uL Hypochromasia Slight PT 11.6 (10.0-12.5) sec INR 1.1 (<1.2) APTT 24.8 (22.0-30.0) sec Sodium (137-145) mmol/L Potassium (3.5-5.1) mmol/L Chloride (98-107) mmol/L Carbon Dioxide (22-30) mmol/L Anion Gap mmol/L BUN (7-17) mg/dL Creatinine (0.52-1.04) mg/dL Est GFR (CKD-EPI)AfAm (>60 ml/min/1.73 sqM) Est GFR (CKD-EPI)NonAf (>60 ml/min/1.73 sqM) Glucose (74-99) mg/dL POC Glucose (mg/dL) (70-110) mg/dL POC Glu Production Scheduler ID Plasma Lactic Acid John (0.7-2.0) mmol/L Calcium (8.4-10.2) mg/dL Phosphorus (2.5-4.5) mg/dL Magnesium (1.6-2.3) mg/dL Total Bilirubin (0.2-1.3) mg/dL AST (14-36) U/L ALT (4-34) U/L Alkaline Phosphatase (38-126) U/L Troponin I (0.000-0.034) ng/mL NT-Pro-B Natriuret Pep pg/mL Total Protein (6.3-8.2) g/dL Albumin (3.5-5.0) g/dL TSH (0.465-4.680) mIU/L Urine Color Colorless Urine Appearance Cloudy H (Clear) Urine pH 5.5 (5.0-8.0) Ur Specific [place] 1.011 (1.001-1.035) Urine Protein Trace H (Negative) Urine Glucose (UA) Negative (Negative) Urine Ketones 2+ H (Negative) Urine Blood Trace H (Negative) Urine Nitrite Negative (Negative) Urine Bilirubin Negative (Negative) Urine Urobilinogen <2.0 (<2.0) mg/dL Ur Leukocyte Esterase Large H (Negative) Urine RBC 2 (0-5) /hpf Urine WBC 89 H (0-5) /hpf Urine WBC Clumps Many H (None) /hpf Ur Squamous Epith Cells <1 (0-4) /hpf Urine Bacteria Few H (None) /hpf 04/23/23 04/23/23 04/23/23 Range/Units 15:56 15:56 15:56 WBC (3.8-10.6) k/uL RBC (3.80-5.40) m/uL Hgb (11.4-16.0) gm/dL Hct (34.0-46.0) % MCV (80.0-100.0) fL MCH (25.0-35.0) pg MCHC (31.0-37.0) g/dL RDW (11.5-15.5) % Plt Count (150-450) k/uL MPV Neutrophils % % Lymphocytes % % Monocytes % % Eosinophils % % Basophils % % Neutrophils # (1.3-7.7) k/uL Lymphocytes # (1.0-4.8) k/uL Monocytes # (0-1.0) k/uL Eosinophils # (0-0.7) k/uL Basophils # (0-0.2) k/uL Hypochromasia PT (10.0-12.5) sec INR (<1.2) APTT (22.0-30.0) sec Sodium 132 L (137-145) mmol/L Potassium 4.1 (3.5-5.1) mmol/L Chloride 99 (98-107) mmol/L Carbon Dioxide 17 L (22-30) mmol/L Anion Gap 16 mmol/L BUN 17 (7-17) mg/dL Creatinine 0.64 (0.52-1.04) mg/dL Est GFR (CKD-EPI)AfAm >90 (>60 ml/min/1.73 sqM) Est GFR (CKD-EPI)NonAf 81 (>60 ml/min/1.73 sqM) Glucose 67 L (74-99) mg/dL POC Glucose (mg/dL) (70-110) mg/dL POC Glu Production Scheduler ID Plasma Lactic Acid John 1.1 (0.7-2.0) mmol/L Calcium 9.1 (8.4-10.2) mg/dL Phosphorus 3.5 (2.5-4.5) mg/dL Magnesium 2.0 (1.6-2.3) mg/dL Total Bilirubin 0.9 (0.2-1.3) mg/dL AST 27 (14-36) U/L ALT 15 (4-34) U/L Alkaline Phosphatase 93 (38-126) U/L Troponin I <0.012 (0.000-0.034) ng/mL NT-Pro-B Natriuret Pep 476 pg/mL Total Protein 6.7 (6.3-8.2) g/dL Albumin 4.2 (3.5-5.0) g/dL TSH 4.070 (0.465-4.680) mIU/L Urine Color Urine Appearance (Clear) Urine pH (5.0-8.0) Ur Specific [place] (1.001-1.035) Urine Protein (Negative) Urine Glucose (UA) (Negative) Urine Ketones (Negative) Urine Blood (Negative) Urine Nitrite (Negative) Urine Bilirubin (Negative) Urine Urobilinogen (<2.0) mg/dL Ur Leukocyte Esterase (Negative) Urine RBC (0-5) /hpf Urine WBC (0-5) /hpf Urine WBC Clumps (None) /hpf Ur Squamous Epith Cells (0-4) /hpf Urine Bacteria (None) /hpf 04/23/23 Range/Units 19:38 WBC (3.8-10.6) k/uL RBC (3.80-5.40) m/uL Hgb (11.4-16.0) gm/dL Hct (34.0-46.0) % MCV (80.0-100.0) fL MCH (25.0-35.0) pg MCHC (31.0-37.0) g/dL RDW (11.5-15.5) % Plt Count (150-450) k/uL MPV Neutrophils % % Lymphocytes % % Monocytes % % Eosinophils % % Basophils % % Neutrophils # (1.3-7.7) k/uL Lymphocytes # (1.0-4.8) k/uL Monocytes # (0-1.0) k/uL Eosinophils # (0-0.7) k/uL Basophils # (0-0.2) k/uL Hypochromasia PT (10.0-12.5) sec INR (<1.2) APTT (22.0-30.0) sec Sodium (137-145) mmol/L Potassium (3.5-5.1) mmol/L Chloride (98-107) mmol/L Carbon Dioxide (22-30) mmol/L Anion Gap mmol/L BUN (7-17) mg/dL Creatinine (0.52-1.04) mg/dL Est GFR (CKD-EPI)AfAm (>60 ml/min/1.73 sqM) Est GFR (CKD-EPI)NonAf (>60 ml/min/1.73 sqM) Glucose (74-99) mg/dL POC Glucose (mg/dL) 58 L (70-110) mg/dL POC Glu Production Scheduler ID Cook, Pinky Plasma Lactic Acid John (0.7-2.0) mmol/L Calcium (8.4-10.2) mg/dL Phosphorus (2.5-4.5) mg/dL Magnesium (1.6-2.3) mg/dL Total Bilirubin (0.2-1.3) mg/dL AST (14-36) U/L ALT (4-34) U/L Alkaline Phosphatase (38-126) U/L Troponin I (0.000-0.034) ng/mL NT-Pro-B Natriuret Pep pg/mL Total Protein (6.3-8.2) g/dL Albumin (3.5-5.0) g/dL TSH (0.465-4.680) mIU/L Urine Color Urine Appearance (Clear) Urine pH (5.0-8.0) Ur Specific [place] (1.001-1.035) Urine Protein (Negative) Urine Glucose (UA) (Negative) Urine Ketones (Negative) Urine Blood (Negative) Urine Nitrite (Negative) Urine Bilirubin (Negative) Urine Urobilinogen (<2.0) mg/dL Ur Leukocyte Esterase (Negative) Urine RBC (0-5) /hpf Urine WBC (0-5) /hpf Urine WBC Clumps (None) /hpf Ur Squamous Epith Cells (0-4) /hpf Urine Bacteria (None) /hpf - EKG Data -: EKG Interpreted by Me - Radiology Data Radiology results: report reviewed (Chest and pelvis x-ray are negative for acute disease), image reviewed Disposition Clinical Impression: Urinary tract infection, Dehydration, Nausea and vomiting, Weakness Disposition: ADMITTED IP TO THIS HOSP Condition: Fair Is patient prescribed a controlled substance at d/c from ED?: No Time of Disposition: 19:40
[2023-04-23 16:12] LABS: Basophils % (A) 0 %; Eosinophils % (A) 1 %; HCT 38.7 % (34.0-46.0); HGB 12.1 gm/dL (11.4-16.0); Hypochromasia Slight; Lymphocytes % (A) 19 %; MCH 30.6 pg (25.0-35.0); MCHC 31.4 g/dL (31.0-37.0); MCV 97.4 fL (80.0-100.0); Mean Platelet Volume 6.9; Monocytes # (A) 0.3 k/uL (0-1.0); Monocytes % (A) 5 %; Neutrophils % (A) 74 %; Platelet Count 295 k/uL (150-450); RBC 3.97 m/uL (3.80-5.40); RDW 14.3 % (11.5-15.5); WBC 5.4 k/uL (3.8-10.6)
[2023-04-23 16:22] LABS: ALT 15 U/L (4-34); AST 27 U/L (14-36); African American GFR (CKD) >90 (>60 ml/min/1.73 sqM); Albumin 4.2 g/dL (3.5-5.0); Alkaline Phosphatase 93 U/L (38-126); Anion Gap 16 mmol/L; Blood Urea Nitrogen 17 mg/dL (7-17); Calcium 9.1 mg/dL (8.4-10.2); Carbon Dioxide 17 mmol/L (22-30); Chloride 99 mmol/L (98-107); Glucose 67 mg/dL (74-99); INR 1.1 (<1.2); Non-African American GFR(CKD) 81 (>60 ml/min/1.73 sqM); Partial Thromboplastin Time 24.8 sec (22.0-30.0); Phosphorus 3.5 mg/dL (2.5-4.5); Potassium 4.1 mmol/L (3.5-5.1); Prothrombin Time 11.6 sec (10.0-12.5); Sodium 132 mmol/L (137-145); Total Bilirubin 0.9 mg/dL (0.2-1.3); Total Protein 6.7 g/dL (6.3-8.2)
[2023-04-23 16:30] LABS: NT-Pro-B-Type Natriuretic Pept 476 pg/mL
--- NOTE | 2023-04-23 17:04 | XR ---
EXAMINATION TYPE: XR pelvis AP view DATE OF EXAM: 04/23/2023 CLINICAL HISTORY: pain TECHNIQUE: Single view the pelvis is submitted. FINDINGS: No evidence for fracture, dislocation or bony lesion. Joint spaces are well-preserved. S I joints appear symmetric. IMPRESSION: 1. No acute fracture or dislocation seen. ICD 10 NO FRACTURE, INITIAL EVALUATION
--- NOTE | 2023-04-23 17:13 | XR ---
EXAMINATION TYPE: XR chest 1V DATE OF EXAM: 04/23/2023 HISTORY: Shortness of breath. COMPARISON: 08/07/2019 TECHNIQUE: Single view of the chest is submitted. FINDINGS: Demonstrated are scattered senescent parenchymal change. There is no evidence for focal infiltrate. The heart is stable. Hilar and mediastinal structures are within normal limits. Degenerative changes are seen of the dorsal spine. IMPRESSION: 1. Chronic changes without evidence for acute pulmonary disease.
[2023-04-23] MEDS: SODIUM CHLORIDE 0.9% 1,000 ML IV STA (17:21)
[2023-04-23] MEDS: ONDANSETRON 4 MG/2 ML VIAL IVP STA (17:21)
[2023-04-23 18:22] LABS: Appearance,Urine Cloudy (Clear); Bacteria,Urine Few /hpf; Bilirubin,Urine Negative (Negative); Blood,Urine Trace (Negative); Color,Urine Colorless; Glucose,Urine (UA) Negative (Negative); Leukocyte Esterase,Urine Large (Negative); Nitrite,Urine Negative (Negative); PH, Urine 5.5 (5.0-8.0); Protein,Urine Trace (Negative); RBC,Urine 2 /hpf (0-5); Specific Gravity,Urine 1.011 (1.001-1.035); Squamous Epithelial Cell,Urine <1 /hpf (0-4); Urobilinogen,Urine <2.0 mg/dL (<2.0); WBC,Urine 89 /hpf (0-5)
[2023-04-23 18:29] LABS: Ketones,Urine 2+ (Negative)
[2023-04-23] MEDS ORDERED: ONDANSETRON 4 MG/2 ML VIAL IVP PRN (19:38)
[2023-04-23] MEDS ORDERED: MORPHINE SULFATE 4 MG/ML SYRINGE IV PRN (19:38)
[2023-04-23] MEDS ORDERED: NALOXONE 0.4 MG/ML 1 ML VIAL IV PRN (19:38)
[2023-04-23 19:49] LABS: Glucose,Whole Blood 58 mg/dL (70-110)
[2023-04-23 20:11] LABS: Glucose,Whole Blood 63 mg/dL (70-110)
[2023-04-23] MEDS: SODIUM CHLORIDE 0.9% 1,000 ML IV SCH (20:34)
[2023-04-23 20:56] LABS: Glucose,Whole Blood 122 mg/dL (70-110)
[2023-04-23] MEDS: lisinopriL 20 MG TAB PO SCH (22:31)
[2023-04-24] MEDS: PANTOPRAZOLE 40 MG TABLET PO SCH (06:36)
[2023-04-24] MEDS: GABAPENTIN 300 MG CAP PO SCH (07:44)
[2023-04-24] MEDS: HYDROcodone/APAP 7.5-325MG 1 EACH TAB PO SCH (07:44)
--- NOTE | 2023-04-24 08:45 | P.HPIM ---
History of Present Illness H&P Date: 04/24/23 Chief Complaint: weakness This is an 88-year-old female who presented to the emergency department via EMS after patient's family member was concerned for them. Per family member patient had not been feeling well and was confused and very weak. Patient reports this on Friday morning she felt like she had the flu and had abdominal pain and vomiting. Patient does live alone with reportedly a dental coordinator who checks in daily. Patient was found to have a UTI and admission and was dehydrated. X- rays of the chest and pelvis were negative. Patient is seen this morning laying in bed. She does seem more alert this morning, however does look very frail. Physical therapy has been ordered. Patient remains on IV Rocephin. There are medical history as noted below. Review of Systems Constitutional: Reports fatigue, Reports weakness, Denies chills, Denies fever Cardiovascular: Denies chest pain, Denies dyspnea on exertion Respiratory: Denies cough, Denies dyspnea Gastrointestinal: Reports abdominal pain, Reports nausea, Reports vomiting Musculoskeletal: Denies arm numbness/tingling, Denies leg numbness/tingling Neurological: Reports weakness, Denies headaches Past Medical History Past Medical History: Asthma, Fibromyalgia, Hypertension, Osteoarthritis (OA), T hyroid Disorder Additional Past Medical History / Comment(s): Neuropathy History of Any Multi-Drug Resistant Organisms: VRE Date of last positivie culture/infection: 01/01/23 MDRO Source:: Urine Past Surgical History: Appendectomy, Joint Replacement Additional Past Surgical History / Comment(s): RIGHT KNEE Past Anesthesia/Blood Transfusion Reactions: No Reported Reaction Past Psychological History: Depression Smoking Status: Never smoker - Past Family History Father Family Medical History: Cancer Medications and Allergies Home Medications Medication Instructions Recorded Confirmed Type Pantoprazole Sodium [Protonix] 40 mg PO BID 10/01/20 04/23/23 History lisinopriL [Zestril] 20 mg PO DAILY 10/01/20 04/23/23 History Gabapentin 600 mg PO TID 04/23/23 04/23/23 History HYDROcodone/APAP 7.5-325MG [[place] 1 tab PO TID 04/23/23 04/23/23 History 7.5-325] Allergies Allergy/AdvReac Type Severity Reaction Status Date / Time No Known Allergies Allergy Verified 04/23/23 16:50 Physical Exam Vitals: Vital Signs Temp Pulse Pulse Resp BP BP BP 04/24/23 02:10 98.3 F 79 134/73 04/23/23 22:10 97.7 F 86 16 170/98 04/23/23 21:46 97.6 F 89 16 166/94 04/23/23 19:26 97.6 F 96 16 156/93 04/23/23 17:23 80 18 156/90 04/23/23 15:20 97.7 F 86 18 167/103 Pulse Ox 04/24/23 02:10 97 04/23/23 22:10 96 04/23/23 21:46 96 04/23/23 19:26 97 04/23/23 17:23 96 04/23/23 15:20 97 Intake and Output 04/23/23 04/24/23 04/24/23 22:59 06:59 14:59 Other: # Voids 0 1 Weight 45.359 kg - Constitutional General appearance: cooperative, no acute distress, thin - EENT Eyes: PERRLA - Neck Neck: no lymphadenopathy, normal ROM, no rigidity - Respiratory Respiratory: bilateral: CTA - Cardiovascular Rhythm: regular Heart sounds: normal: S1, S2 - Gastrointestinal General gastrointestinal: soft, no tenderness - Integumentary Integumentary: normal, normal turgor - Musculoskeletal Musculoskeletal: generalized weakness - Psychiatric Psychiatric: A&O x's 3 Results CBC & Chem 7: 04/23/23 15:56 04/23/23 15:56 Labs: Abnormal Lab Results - Last 24 Hours (Table) 04/23/23 04/23/23 04/23/23 Range/Units 15:56 15:56 19:38 Sodium 132 L (137-145) mmol/L Carbon Dioxide 17 L (22-30) mmol/L Glucose 67 L (74-99) mg/dL POC Glucose (mg/dL) 58 L (70-110) mg/dL Urine Appearance Cloudy H (Clear) Urine Protein Trace H (Negative) Urine Ketones 2+ H (Negative) Urine Blood Trace H (Negative) Ur Leukocyte Esterase Large H (Negative) Urine WBC 89 H (0-5) /hpf Urine WBC Clumps Many H (None) /hpf Urine Bacteria Few H (None) /hpf 04/23/23 04/23/23 Range/Units 20:00 20:55 Sodium (137-145) mmol/L Carbon Dioxide (22-30) mmol/L Glucose (74-99) mg/dL POC Glucose (mg/dL) 63 L 122 H (70-110) mg/dL Urine Appearance (Clear) Urine Protein (Negative) Urine Ketones (Negative) Urine Blood (Negative) Ur Leukocyte Esterase (Negative) Urine WBC (0-5) /hpf Urine WBC Clumps (None) /hpf Urine Bacteria (None) /hpf Thrombosis Risk Factor Assmnt - Choose All That Apply Each Risk Factor Represents 3 Points: Age 75 years or older Thrombosis Risk Factor Assessment Total Risk Factor Score: 3 Thrombosis Risk Factor Assessment Level: Moderate Risk Assessment and Plan (1) Dehydration Current Visit: Yes Status: Acute Code(s): E86.0 - DEHYDRATION SNOMED Code(s): 89351411 (2) Nausea and vomiting Current Visit: Yes Status: Acute Code(s): R11.2 - NAUSEA WITH VOMITING, UNSPECIFIED SNOMED Code(s): 21796314 (3) Urinary tract infection Current Visit: Yes Status: Acute Code(s): N39.0 - URINARY TRACT INFECTION, SITE NOT SPECIFIED SNOMED Code(s): 79415879 (4) Weakness Current Visit: Yes Status: Acute Code(s): R53.1 - WEAKNESS SNOMED Code(s): 30761064 (5) Opiate dependence Current Visit: No Status: Acute Code(s): F11.20 - OPIOID DEPENDENCE, U NCOMPLICATED SNOMED Code(s): 09905370 (6) Fibromyalgia Current Visit: Yes Status: Acute Code(s): M79.7 - FIBROMYALGIA SNOMED Code(s): 733861340 Plan: Home medications reconciled. Await recommendations from PT and OT Continue IV antibiotics for UTI Check CBC and CMP in the morning Patient seen and evaluated by nurse practitioner, physician in agreement with plan
[2023-04-24 08:46] LABS: ALT 9 U/L (8-44); AST 13 U/L (13-35); Albumin 3.3 g/dL (3.8-4.9); Albumin/Globulin Ratio 1.74 Ratio (1.60-3.17); Alkaline Phosphatase 66 U/L (41-126); Calcium 8.1 mg/dL (8.7-10.3); Carbon Dioxide 20.4 mmol/L (21.6-31.8); Chloride 104 mmol/L (96-109); Globulin 1.9 g/dL (1.6-3.3); Glucose 78 mg/dL (70-110); Phosphorus 2.6 mg/dL (2.4-5.1); Potassium 3.9 mmol/L (3.5-5.5); Sodium 137 mmol/L (135-145); Total Bilirubin 0.3 mg/dL (0.3-1.2); Total Protein 5.2 g/dL (6.2-8.2)
[2023-04-24 08:52] LABS: Basophils # (A) 0.03 X 10*3/uL (0.00-0.10); Basophils % (A) 0.4 %; Eosinophils # (A) 0.15 X 10*3/uL (0.04-0.35); Eosinophils % (A) 2.1 %; HGB 10.2 g/dL (12.0-15.0); Lymphocytes # (A) 0.79 X 10*3/uL (0.90-5.00); MCH 29.8 pg (27.0-32.0); MCHC 30.9 g/dL (32.0-37.0); MCV 96.5 FL (80.0-97.0); Mean Platelet Volume 8.1 FL (9.5-12.2); Monocytes % (A) 8.3 %; NRBC Per 100 WBC 0 X 10*3/uL (0.00-0.01); Neutrophils % (A) 77.9 %; Platelet Count 260 X 10*3/uL (140-440); RBC 3.42 X 10*6/uL (4.10-5.20); RDW 14.1 % (11.5-14.5); WBC 7.19 X 10*3/uL (4.50-10.00)
[2023-04-24 13:59] VITALS: BMI 18.3
[2023-04-25 09:04] LABS: ALT 7 U/L (8-44); AST 9 U/L (13-35); Albumin 3.1 g/dL (3.8-4.9); Albumin/Globulin Ratio 1.94 Ratio (1.60-3.17); Alkaline Phosphatase 51 U/L (41-126); Blood Urea Nitrogen 18.3 mg/dL (9.0-27.0); Calcium 7.9 mg/dL (8.7-10.3); Carbon Dioxide 20.9 mmol/L (21.6-31.8); Chloride 112 mmol/L (96-109); Globulin 1.6 g/dL (1.6-3.3); Glucose 100 mg/dL (70-110); Potassium 3.9 mmol/L (3.5-5.5); Sodium 142 mmol/L (135-145); Total Bilirubin <0.2 mg/dL (0.3-1.2); Total Protein 4.7 g/dL (6.2-8.2)
[2023-04-25 10:22] LABS: HCT 35.9 % (34.0-46.0); HGB 11.1 gm/dL (11.4-16.0); Hypochromasia Marked; MCH 30.6 pg (25.0-35.0); MCHC 30.8 g/dL (31.0-37.0); MCV 99.2 fL (80.0-100.0); Macrocytosis Slight; Mean Platelet Volume 7.1; Platelet Count 230 k/uL (150-450); RBC 3.62 m/uL (3.80-5.40); RDW 14.6 % (11.5-15.5); WBC 4.6 k/uL (3.8-10.6)
[2023-04-25 14:35] VITALS: BP 123/82; PULSE 89; RESP 16; TEMP 97.8
--- NOTE | 2023-04-27 21:41 | P.DS ---
Providers Date of admission: 04/23/23 19:40 Attending physician: Jayy Tinsley Primary care physician: Jayy Tinsley Hospital Course: The patient is an 88-year-old white female essentially admitted for opiate accidental overdose. She has been home for about a month and has at times struggle with significant caregiver burden. The patient has not been eating well and we had a long discussion regarding appropriate safety. She refuses to go to [facility] for rehab. We had a long discussion regarding opiate dependency. With the family's approval at this time, we will discharge in stable condition. She was admitted and under significant dehydration. Appropriate medications were restarted and she was back to her normal baseline prior to discharge. He seemed to be tolerating diet but we had a long discussion regarding dietary adequacy. Patient Condition at Discharge: Fair Plan - Discharge Summary New Discharge Prescriptions: New cefUROXime axetiL [Cefuroxime] 500 mg PO BID #14 tab Continue lisinopriL [Zestril] 20 mg PO DAILY HYDROcodone/APAP 7.5-325MG [[place] 7.5-325] 1 tab PO TID Pantoprazole Sodium [Protonix] 40 mg PO BID Gabapentin 600 mg PO TID Discharge Medication List Pantoprazole Sodium [Protonix] 40 mg PO BID 10/01/20 [History] lisinopriL [Zestril] 20 mg PO DAILY 10/01/20 [History] Gabapentin 600 mg PO TID 04/23/23 [History] HYDROcodone/APAP 7.5-325MG [[place] 7.5-325] 1 tab PO TID 04/23/23 [History] cefUROXime axetiL [Cefuroxime] 500 mg PO BID #14 tab 04/25/23 [Rx] Follow up Appointment(s)/Referral(s): Jayy Tinsley MD [Primary Care Provider] - 1 Week [facility], [NON-STAFF] - 1 Week Patient Instructions/Handouts: Urinary Tract Infection in Women (DC) Discharge Disposition: HOME SELF-CARE
== END 2023-04-25 16:53 | disposition home or self-care (01) ==
LOC: EC 15:15 → 6NMEDSUR 19:40
PROVIDERS: ADMIT Family Medicine; ATTEND Family Medicine
DX: N39.0 Urinary tract infection, site not specified (principal); E86.0 Dehydration; M79.7 Fibromyalgia; F11.20 Opioid dependence, uncomplicated; Z79.899 Other long term (current) drug therapy
CPT/HCPCS: 96361 ×2; 96366; 96365; 96375; 99285; 36415; 93005; 97162; 97166; 83880; 80053 ×3; 83605; 83735 ×2; 84100 ×2; 84443; 84484; 85025 ×2; 85027; 85610; 85730; 81001; 87040; 72170; 71045; G0378 ×3; J2405; J0696 ×2